=== PATIENT | female | born 1950 | race Caucasian/White ===

== ENCOUNTER 2017-11-09 08:09 | Day surgery (SDC) | payer MEDICARE, MEDICAID ==
[~2017-11-09 08:09] MED LIST: Lactated Ringers 1,000 ML IV SCH; Midazolam 1 MG/ML 2 ML SDV ONE; Propofol 200 MG/20 ML SDV ONE; Sodium Chloride 0.9% 10 ML Syringe FLUSH PRN; Sodium Chloride 0.9% 2.5 ML Syringe FLUSH PRN; fentaNYL 100 MCG/2 ML SDV ONE
--- NOTE | 2017-11-09 08:45 | PCM.PREANE ---
Preanesthetic Assessment - Anesthesia/Transfusion/Family Hx Anesthesia History: Prior Anesthesia Without Reaction Family History of Anesthesia Reaction: No Transfusion History: Prior Transfusion Without Reaction Intubation History: Unknown - Review of Systems General: No Symptoms Pulmonary: Shortness of Breath Cardiovascular: No Symptoms Gastrointestinal: Difficulty Swallowing, Hematochezia Neurological: No Symptoms Other: Reports: None - Physical Assessment Height: 1.75 m Weight: 82.1 kg ASA Class: 3 Mental Status: Alert & Oriented x3 Airway Class: Mallampati = 2 Dentition: Reports: Dentures (upper and lower) Thyro-Mental Finger Breadths: 3 Mouth Opening Finger Breadths: 3 ROM/Head Extension: Limited/Partial Lungs: Decreased Breath Sounds, Crackles Cardiovascular: Regular Rate, Regular Rhythm - Allergies Allergies/Adverse Reactions: Allergies Allergy/AdvReac Type Severity Reaction Status Date / Time ibuprofen [From Motrin] Allergy Intermediate Headache Verified 11/04/17 08:01 Sulfa (Sulfonamide Allergy Intermediate Swollen Verified 11/04/17 08:01 Antibiotics) Eyes oxycodone Allergy Confusion/h Verified 11/04/17 11:03 allucinatio ns/depressi on - Blood Blood Available: No - Anesthesia Plan Pre-Op Medication Ordered: None - Acknowledgements Anesthesia Type Planned: MAC Pt an Appropriate Candidate for the Planned Anesthesia: Yes Alternatives and Risks of Anesthesia Discussed w Pt/Guardian: Yes Pt/Guardian Understands and Agrees with Anesthesia Plan: Yes PreAnesthesia Questionnaire HEENT History: Reports: Impaired Vision Other HEENT History: reading glasses, top denture, does not wear bottom denture Cardiovascular History: Reports: CAD, High Cholesterol, Hypertension, [place], SOB on Exertion Other Cardiovascular History: peripheral arterial disease, h/o CHF per patient Respiratory History: Reports: COPD Other Respiratory History: h/o lung cancer couple of years ago Gastrointestinal History: Reports: GERD, GI Bleed, Other (See Below) (dysphagia) Genitourinary History: Reports: None 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: Musculoskeletal History: Reports: Arthritis, Back Pain, Chronic Other Musculoskeletal History: degenerative disc disease Neurological History: Reports: Concussion Psychiatric History: Reports: Addiction, Anxiety, Depression Endocrine/Metabolic History: Reports: None Hematologic History: Reports: Blood Transfusion(s) Oncologic (Cancer) History: Reports: Breast, Lung Dermatologic History: Reports: Psoriasis - Past Surgical History Head Surgeries/Procedures: Reports: None HEENT Surgical History: Reports: Cataract Surgery, Tonsillectomy Cardiovascular Surgical History: Reports: Coronary Artery Stent, Other (See Below) Other Cardiovascular Surgeries/Procedures: angiogram, femerol arterial stent placements Respiratory Surgical History: Reports: Other (See Below) Other Respiratory Surgeries/Procedures: lung lobectomy GI Surgical History: Reports: Appendectomy, Colonoscopy (2 years ago) Female Surgical History: Reports: Breast Biopsy, Hysterectomy, Tubal Ligation Other Female Surgeries/Procedures: breast lumpectomy for breast cancer Oncologic Surgical History: Reports: Biopsy of Breast, Lumpectomy - SUBSTANCE USE Smoking Status *Q: Former Smoker Tobacco Use Within Last Twelve Months: Cigarettes Second Hand Smoke Exposure: Yes Days Per Week of Alcohol Use: 0 Recreational Drug Use History: Yes Recreational Drug Type: Reports: Other (see below) - HOME MEDS Home Medications: Home Meds Aspirin [Adult Low Dose Aspirin EC] 81 mg PO DAILY 02/17/14 [History] Atenolol 50 mg PO DAILY #30 tablet 02/17/14 [Rx] Lisinopril 10 mg PO DAILY #30 tablet 02/17/14 [Rx] FLUoxetine [PROzac] 20 mg PO DAILY 08/06/16 [History] Nitroglycerin [Nitrostat] 0.4 mg SL Q5M PRN 08/06/16 [History] atorvaSTATin [Lipitor] 10 mg PO BEDTIME 08/06/16 [History] buPROPion [Wellbutrin SR] 300 mg PO DAILY 08/06/16 [History] Omeprazole 20 mg PO BID 10/11/16 [History] Albuterol [Ventolin HFA] 1 - 2 puff INH ASDIRECTED PRN 11/04/17 [History] Clopidogrel Bisulfate [Plavix] 75 mg PO DAILY 11/04/17 [History] Isosorbide Mononitrate [Imdur] 30 mg PO DAILY 11/04/17 [History] Pregabalin [Lyrica] 150 mg PO ASDIRECTED 11/04/17 [History] Sucralfate [Carafate] 1 gm PO QID 11/04/17 [History] - CURRENT (IN HOUSE) MEDS Current Meds: Current Medications Lactated Ringer's (Ringers, Lactated) 1,000 mls @ 125 mls/hr IV ASDIRECTED [place] Sodium Chloride (Saline Flush) 10 ml FLUSH ASDIRECTED PRN PRN Reason: Keep Vein Open Sodium Chloride (Saline Flush) 2.5 ml FLUSH ASDIRECTED PRN PRN Reason: Keep Vein Open Sodium Chloride (Saline Flush) 10 ml FLUSH ASDIRECTED PRN PRN Reason: Keep Vein Open Sodium Chloride (Saline Flush) 2.5 ml FLUSH ASDIRECTED PRN PRN Reason: Keep Vein Open Discontinued Medications Fentanyl (Sublimaze) Confirm Administered Dose 100 mcg .ROUTE .STK-MED ONE Stop: 11/09/17 07:35 Midazolam HCl (Versed 1 Mg/Ml) Confirm Administered Dose 2 mg .ROUTE .STK-MED ONE Stop: 11/09/17 07:35 Propofol (Diprivan 20 Ml) Confirm Administered Dose 200 mg .ROUTE .STK-MED ONE Stop: 11/09/17 07:35
[2017-11-09] MEDS ORDERED: ePHEDrine 50 MG/ML SDV ONE (08:49)
--- NOTE | 2017-11-09 09:31 | PCM.OPNOTE ---
- General Post-Op/Procedure Note Date of Surgery/Procedure: 11/09/17 Operative Procedure(s): Diagnostic EGD and colonoscopy Findings: Normal EGD. Ascending colon (proximal) and Sigmoid colon (distal) polyp Pre Op Diagnosis: GI bleed Post-Op Diagnosis: Cecal and sigmoid colon polyp Anesthesia Technique: MAC Primary Surgeon: Mairama Rudd Condition: Good
--- NOTE | 2017-11-09 10:09 | PCM48HPAN ---
Post Anesthesia Note - EVALUATION WITHIN 48HRS OF ANESTHETIC Vital Signs in Normal Range: Yes Patient Participated in Evaluation: Yes Respiratory Function Stable: Yes Airway Patent: Yes Cardiovascular Function Stable: Yes Hydration Status Stable: Yes Pain Control Satisfactory: Yes Nausea and Vomiting Control Satisfactory: Yes Mental Status Recovered: Yes Resp Rate: 12
[2017-11-09 10:11] VITALS: BP 114/61
--- NOTE | 2017-11-09 11:13 | OR ---
SURGEON: MARIAMA RUDD MD DATE OF PROCEDURE: 11/09/2017 PREOPERATIVE DIAGNOSIS: Gastrointestinal bleed. POSTOPERATIVE DIAGNOSIS: Ascending colon polyp and descending colon polyp. PROCEDURE PERFORMED: Diagnostic EGD and colonoscopy. ENDOSCOPIST: Mariama Rudd MD. ANESTHESIA: MAC. INSTRUMENT USED: Olympus endoscope and colonoscope. EXTENT OF EXAM: Second portion of the duodenum, to the cecum. PREPARATION: Good. LIMITATIONS: None. INDICATION FOR EXAMINATION: The patient is a 66-year-old female with multiple medical comorbidities. She was admitted a couple months ago to an outside hospital for GI bleed. She is here for further workup. The patient had a colonoscopy several years ago that was normal. The decision was made to proceed with a diagnostic EGD and colonoscopy. We discussed the procedures, expected perioperative course, and risks including bleeding, infection, or damage to surrounding structures. The patient underwent an extensive preoperative workup prior to this procedure. The patient verbalized understanding and wishes to proceed. PROCEDURE IN DETAIL: The patient was brought into the endoscopy suite and placed in a left lateral decubitus position. A time-out was completed verifying the patient's name, age, date of , allergies, and procedure to be performed. A bite block was placed in the patient's mouth, and monitored anesthesia care induced. Continuous oxygen was provided via nasal cannula throughout the procedure. After adequate sedation was achieved, a well-lubricated endoscope was placed in the patient's mouth and advanced under direct visualization to the level of the second portion of duodenum. This appeared normal, and a photograph was taken. The scope was then fully withdrawn while examining the color, texture, anatomy, and integrity of the mucosa of the upper GI tract. There was no evidence of any duodenitis or peptic ulcer disease. The scope was brought into the stomach, and a photograph taken of the GE junction and pylorus, which both appeared normal. The gastric mucosa had no signs of inflammation. The biopsies were taken of the gastric antrum, body, and fundus and sent for histologic review and H. pylori testing. The scope was brought into the distal esophagus. A photograph was taken of the Z-line. This appeared normal. The remainder of the esophageal mucosa was free of pathology. The scope was removed from the mouth, and this portion of the procedure was terminated. A digital rectal exam was performed. The patient had overall weak rectal tone, but no abnormalities were otherwise noted. A well-lubricated colonoscope was inserted into the rectum and advanced under direct visualization to the level of the cecum. The cecum was then identified by both visual and anatomic landmarks. A photograph taken of the cecal cap. Due to looping of the scope more proximally, I was unable to retroflex the scope within the cecum. The scope was then fully withdrawn. While examining, the color, texture, anatomy, and integrity of the mucosa from the cecum to the anal canal. At the very proximal ascending colon, a 2 to 3 mm sessile polyp was noted. This was removed using a cold biopsy forceps. The patient also had a similar-appearing polyp in the distal sigmoid colon. This was removed in a similar fashion. The remainder of the colon appeared normal. The scope was brought into the rectum. I attempted to retroflex the scope, but was unable to do so due to the weak tone of the rectum in her small pelvis. I fully withdrew my scope, taking a good look at the tissue inside the rectum. No abnormalities were noted. The scope was then removed, and the procedure terminated. The cecum to anus time was 10 minutes. The patient tolerated the procedure well, and was taken to the PACU in stable condition. ENDOSCOPIC DIAGNOSIS: Ascending colon polyp and descending colon polyp. RECOMMENDATIONS: Follow up in the clinic in 2 weeks. JUDY VAZQUEZ /[id number]
== END 2017-11-09 10:00 | disposition home or self-care (01) ==
LOC: MW.SDS 08:09
PROVIDERS: ATTEND Surgery
DX: K92.2 Gastrointestinal hemorrhage, unspecified (principal); D12.2 Benign neoplasm of ascending colon; D12.5 Benign neoplasm of sigmoid colon; K92.1 Melena; Z88.6 Allergy status to analgesic agent; Z88.2 Allergy status to sulfonamides; K21.9 Gastro-esophageal reflux disease without esophagitis; I25.10 Atherosclerotic heart disease of native coronary artery without angina pectoris; E78.00 Pure hypercholesterolemia, unspecified; I25.2 Old myocardial infarction; J44.9 Chronic obstructive pulmonary disease, unspecified; I11.0 Hypertensive heart disease with heart failure; I50.9 Heart failure, unspecified; F41.9 Anxiety disorder, unspecified; F32.9 Major depressive disorder, single episode, unspecified; Z87.891 Personal history of nicotine dependence; Z79.82 Long term (current) use of aspirin; Z79.899 Other long term (current) drug therapy
CPT/HCPCS: 43239; 45380; J2250; J3010; J7120; J2704

== ENCOUNTER 2018-02-01 17:01 | Observation (INO) | payer MEDICARE, MEDICAID ==
[2018-02-01] MEDS ORDERED: Sodium Chloride 0.9% 2.5 ML Syringe FLUSH PRN (17:12)
[2018-02-01] MEDS ORDERED: Sodium Chloride 0.9% 1,000 ML IV ONE (17:12)
[2018-02-01] MEDS ORDERED: Sodium Chloride 0.9% 10 ML Syringe FLUSH PRN (17:12)
--- NOTE | 2018-02-01 17:21 | EDM.PDOC ---
ED HPI GENERAL MEDICAL PROBLEM - General Chief Complaint: General Stated Complaint: CHEST PAIN Time Seen by Provider: 02/01/18 17:20 Source of Information: Reports: Patient History Limitations: Reports: No Limitations - History of Present Illness INITIAL COMMENTS - FREE TEXT/NARRATIVE: HISTORY AND PHYSICAL: History of present illness: Patient is a 67-year-old female here with complaint of lightheadedness and chest pain. She states the chest pain started about noon today. She reports it is midsternal and radiates to the left side. She has a history of ACS with stents. She reports feeling a little short of breath. She is not diaphoretic and no nausea, vomiting, diarrhea, abdominal pain. Patient states she did not take her nitro today as she is out of it. She also reports feeling lightheaded since this morning. She states her balance feels off and she feels like she is walking crooked. Review of systems: As per history of present illness and below otherwise all systems reviewed and negative. Past medical history: As per history of present illness and as reviewed below otherwise noncontributory. Surgical history: As per history of present illness and as reviewed below otherwise noncontributory. Social history: No reported history of drug or alcohol abuse. Family history: As per history of present illness and as reviewed below otherwise noncontributory. Physical exam: General: patient lying comfortably in no acute distress HEENT: Atraumatic, normocephalic, pupils reactive, negative for conjunctival pallor or scleral icterus, mucous membranes moist, throat clear, neck supple, nontender, trachea midline. Lungs: Breath sounds dimished, breath sounds equal bilaterally, chest nontender. Heart: S1S2, regular, negative for clicks, rubs, or JVD. Abdomen: Soft, nondistended, nontender. Negative for masses or hepatosplenomegaly. Negative for costovertebral tenderness. Pelvis: Stable nontender. Genitourinary: Deferred. Rectal: Deferred. Extremities: Atraumatic, negative for cords or calf pain. Neurovascular unremarkable. Neuro: Awake, alert, oriented. Cranial nerves II through XII unremarkable. Cerebellum unremarkable. Motor and sensory unremarkable throughout. Exam nonfocal. Notes: Patient reports improvement in SOB with DuoNeb, breath sounds improved. Diagnostics: CBC, CMP, troponin, lipase, UA EKG, CXR Therapeutics: Aspirin 324mg chewed 1L Normal saline IV DuoNeb Impression: Chest pain Plan: Discussed with Dr. Ramos, patient admitted to observation on telemetry and serial troponin. Definitive disposition and diagnosis as appropriate pending reevaluation and review of above. bilateral hips Pain Score (Numeric/FACES): 8 - Related Data Allergies Allergy/AdvReac Type Severity Reaction Status Date / Time ibuprofen [From Motrin] Allergy Intermediate Headache Verified 02/01/18 17:17 Sulfa (Sulfonamide Allergy Intermediate Swollen Verified 02/01/18 17:17 Antibiotics) Eyes oxycodone Allergy Confusion/h Verified 02/01/18 17:17 allucinatio ns/depressi on Home Meds: Home Meds Aspirin [Adult Low Dose Aspirin EC] 81 mg PO DAILY 02/17/14 [History] Atenolol 50 mg PO DAILY #30 tablet 02/17/14 [Rx] Lisinopril 10 mg PO DAILY #30 tablet 02/17/14 [Rx] FLUoxetine [PROzac] 20 mg PO DAILY 08/06/16 [History] Nitroglycerin [Nitrostat] 0.4 mg SL Q5M PRN 08/06/16 [History] atorvaSTATin [Lipitor] 10 mg PO BEDTIME 08/06/16 [History] buPROPion [Wellbutrin SR] 300 mg PO DAILY 08/06/16 [History] Omeprazole 20 mg PO BID 10/11/16 [History] Albuterol [Ventolin HFA] 1 - 2 puff INH ASDIRECTED PRN 11/04/17 [History] Clopidogrel Bisulfate [Plavix] 75 mg PO DAILY 11/04/17 [History] Isosorbide Mononitrate [Imdur] 30 mg PO DAILY 11/04/17 [History] Pregabalin [Lyrica] 150 mg PO ASDIRECTED 11/04/17 [History] Past Medical History HEENT History: Reports: Impaired Vision Other HEENT History: wears glasses Cardiovascular History: Reports: CAD, High Cholesterol, Hypertension, [place], SOB on Exertion Other Cardiovascular History: peripheral arterial disease, h/o CHF per patient Respiratory History: Reports: None Other Respiratory History: h/o lung cancer couple of years ago Gastrointestinal History: Reports: GERD, GI Bleed, Other (See Below) Genitourinary History: Reports: None 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: , Other (See Below) Other BRICK BAKER History: breast surgery Musculoskeletal History: Reports: Arthritis, Back Pain, Chronic Other Musculoskeletal History: degenerative disc disease Neurological History: Reports: Concussion Psychiatric History: Reports: Depression Endocrine/Metabolic History: Reports: None Hematologic History: Reports: Blood Transfusion(s) Oncologic (Cancer) History: Reports: Breast, Lung Dermatologic History: Reports: Psoriasis - Infectious Disease History Infectious Disease History: Reports: Chicken Pox - Past Surgical History Head Surgeries/Procedures: Reports: None Cardiovascular Surgical History: Reports: Coronary Artery Stent, Other (See Below) Other Cardiovascular Surgeries/Procedures: angiogram, femerol arterial stent placements Respiratory Surgical History: Reports: Lung Biopsies Other Respiratory Surgeries/Procedures: states hx of Lung CA GI Surgical History: Reports: Appendectomy, Colonoscopy Female Surgical History: Reports: Breast Biopsy, Hysterectomy, Tubal Ligation Other Female Surgeries/Procedures: breast lumpectomy for breast cancer Oncologic Surgical History: Reports: Biopsy of Breast, Lumpectomy Social & Family History - Family History Family Medical History: Noncontributory - Tobacco Use Smoking Status *Q: Current Every Day Smoker Years of Tobacco use: 45 Packs/Tins Daily: 1 - Caffeine Use Caffeine Use: Reports: Coffee Caffeine Use Comment: 2 drinks/day - Recreational Drug Use Recreational Drug Use: No ED ROS GENERAL - Review of Systems Review Of Systems: ROS reveals no pertinent complaints other than HPI. ED EXAM, GENERAL - Physical Exam Exam: See Below (see dictation) Course - Vital Signs Last Recorded V/S: Last Vital Signs Temp 35.4 C 02/01/18 17:13 Pulse 69 02/01/18 17:13 Resp 18 02/01/18 17:13 BP 101/57 L 02/01/18 17:13 Pulse Ox 93 L 02/01/18 17:13 - Orders/Labs/Meds Orders: Active Orders 24 hr Category Date Time Status EKG Documentation Completion [RC] STAT Care 02/01/18 17:12 Active Pulse Oximetry [RC] ASDIRECTED Care 02/01/18 17:12 Active RT Aerosol Therapy [RC] ASDIRECTED Care 02/01/18 17:40 Active Chest 1V Frontal [CR] Stat Exams 02/01/18 17:12 Taken UA W/MICROSCOPIC [URIN] Stat Lab 02/01/18 17:12 Ordered Sodium Chloride 0.9% [Saline Flush] Med 08/14/18 17:12 Active 10 ml FLUSH ASDIRECTED PRN Sodium Chloride 0.9% [Saline Flush] Med 02/01/18 17:12 Active 2.5 ml FLUSH ASDIRECTED PRN Saline Lock Insert [OM.PC] Stat Oth 02/01/18 17:12 Ordered Medication Orders Sodium Chloride (Saline Flush) 10 ml FLUSH ASDIRECTED PRN PRN Reason: Keep Vein Open Last Admin: 02/01/18 17:40 Dose: 10 ml Sodium Chloride (Saline Flush) 2.5 ml FLUSH ASDIRECTED PRN PRN Reason: Keep Vein Open Last Admin: 02/01/18 17:40 Dose: 2.5 ml Labs: Laboratory Tests 02/01/18 02/01/18 02/01/18 Range/Units 17:19 17:19 17:19 WBC 7.46 (4.0-11.0) K/uL RBC 5.31 (4.30-5.90) M/uL Hgb 13.4 (12.0-16.0) g/dL Hct 41.4 (36.0-46.0) % MCV 78.0 L (80.0-98.0) fL MCH 25.2 L (27.0-32.0) pg MCHC 32.4 (31.0-37.0) g/dL RDW Std Deviation 49.8 (28.0-62.0) fl RDW Coeff of Oscar 18 H (11.0-15.0) % Plt Count 296 (150-400) K/uL MPV 9.60 (7.40-12.00) fL Neut % (Auto) 61.3 (48.0-80.0) % Lymph % (Auto) 27.6 (16.0-40.0) % [place] % (Auto) 7.4 (0.0-15.0) % Eos % (Auto) 3.4 (0.0-7.0) % Baso % (Auto) 0.3 (0.0-1.5) % Neut # (Auto) 4.6 (1.4-5.7) K/uL Lymph # (Auto) 2.1 (0.6-2.4) K/uL [place] # (Auto) 0.6 (0.0-0.8) K/uL Eos # (Auto) 0.3 (0.0-0.7) K/uL Baso # (Auto) 0.0 (0.0-0.1) K/uL Nucleated RBC % 0.0 /100WBC Nucleated RBCs # 0 K/uL INR 1.00 Sodium 138 (136-145) mmol/L Potassium 3.9 (3.5-5.1) mmol/L Chloride 101 (98-107) mmol/L Carbon Dioxide 28.9 (21.0-32.0) mmol/L BUN 11 (7.0-18.0) mg/dL Creatinine 1.2 H (0.6-1.0) mg/dL Est Cr Clr Drug Dosing 46.24 mL/min Estimated GFR (MDRD) 44.5 ml/min Glucose 157 H (74-106) mg/dL Calcium 9.2 (8.5-10.1) mg/dL Total Bilirubin 0.2 (0.2-1.0) mg/dL AST 19 (15-37) IU/L ALT 17 (14-63) IU/L Alkaline Phosphatase 117 H (46-116) U/L Troponin I < 0.050 (0.000-0.056) ng/mL Total Protein 7.8 (6.4-8.2) g/dL Albumin 3.5 (3.4-5.0) g/dL Globulin 4.3 H (2.0-3.5) g/dL Albumin/Globulin Ratio 0.8 L (1.3-2.8) Lipase 79 (73-393) U/L Meds: Medications Generic Name Dose Route Start Last Admin Trade Name Freq PRN Reason Stop Dose Admin Sodium Chloride 10 ml 02/01/18 17:12 02/01/18 17:40 Saline Flush FLUSH 10 ml ASDIRECTED PRN Administration Keep Vein Open Sodium Chloride 2.5 ml 02/01/18 17:12 02/01/18 17:40 Saline Flush FLUSH 2.5 ml ASDIRECTED PRN Administration Keep Vein Open Discontinued Medications Generic Name Dose Route Start Last Admin Trade Name Freq PRN Reason Stop Dose Admin Albuterol/Ipratropium 3 ml 02/01/18 17:40 02/01/18 17:47 Duoneb 3.0-0.5 Mg/3 Ml NEB 02/01/18 17:41 3 ml ONETIME ONE Administration Aspirin 324 mg 02/01/18 18:13 Aspirin PO 02/01/18 18:14 ONETIME ONE Sodium Chloride 1,000 mls @ 999 mls/hr 02/01/18 17:12 02/01/18 17:29 Normal Saline IV 02/01/18 18:12 999 mls/hr BOLUS ONE Administration Departure - Departure Time of Disposition: 18:33 Disposition: Refer to Observation Condition: Good Clinical Impression: Chest pain - Discharge Information Referrals: PCP,None [Primary Care Provider] - Forms: ED Department Discharge - My Orders Last 24 Hours: My Active Orders 02/01/18 17:12 EKG Documentation Completion [RC] STAT Pulse Oximetry [RC] ASDIRECTED Chest 1V Frontal [CR] Stat UA W/MICROSCOPIC [URIN] Stat Sodium Chloride 0.9% [Saline Flush] 10 ml FLUSH ASDIRECTED PRN Sodium Chloride 0.9% [Saline Flush] 2.5 ml FLUSH ASDIRECTED PRN Saline Lock Insert [OM.PC] Stat 02/01/18 17:40 RT Aerosol Therapy [RC] ASDIRECTED - Assessment/Plan Last 24 Hours: My Active Orders 02/01/18 17:12 EKG Documentation Completion [RC] STAT Pulse Oximetry [RC] ASDIRECTED Chest 1V Frontal [CR] Stat UA W/MICROSCOPIC [URIN] Stat Sodium Chloride 0.9% [Saline Flush] 10 ml FLUSH ASDIRECTED PRN Sodium Chloride 0.9% [Saline Flush] 2.5 ml FLUSH ASDIRECTED PRN Saline Lock Insert [OM.PC] Stat 02/01/18 17:40 RT Aerosol Therapy [RC] ASDIRECTED
[2018-02-01] MEDS ORDERED: Albuterol/Ipratropium 3.0-0.5 MG/3 ML Neb Soln NEB ONE (17:40)
[2018-02-01 17:51] LABS: CHLORIDE,CL 101 mmol/L (98-107); SODIUM,NA 138 mmol/L (136-145)
[2018-02-01] MEDS ORDERED: Aspirin 81 MG Tab.Chew PO ONE (18:13)
[2018-02-01] MEDS ORDERED: Ondansetron 4 MG/2 ML SDV IVPUSH PRN (21:16)
[2018-02-01] MEDS ORDERED: Acetaminophen 325 MG Tab PO PRN (21:16)
[2018-02-01] MEDS ORDERED: Morphine 2 MG/ML Syringe IVPUSH PRN (21:23)
--- NOTE | 2018-02-01 23:47 | PCM.HP ---
H&P History of Present Illness - General Date of Service: 02/01/18 Admit Problem/Dx: Admission Diagnosis/Problem Admission Diagnosis/Problem Chest pain - History of Present Illness Initial Comments - Free Text/Narative: 67 yo female with pmh of CAD who presents with complaints of chest pain. It was substernal and nonradiating. She had associated symptoms of weakness and shakes. She reported feeling anxious and wonders if it was her nerves that caused the symptoms. bilateral hips Pain Score (Numeric/FACES): 7 - Related Data Allergies/Adverse Reactions: Allergies Allergy/AdvReac Type Severity Reaction Status Date / Time ibuprofen [From Motrin] Allergy Intermediate Headache Verified 02/01/18 17:17 Sulfa (Sulfonamide Allergy Intermediate Swollen Verified 02/01/18 17:17 Antibiotics) Eyes oxycodone Allergy Confusion/h Verified 02/01/18 17:17 allucinatio ns/depressi on Home Medications: Home Meds RX: Aspirin [Adult Low Dose Aspirin EC] 81 mg PO DAILY 02/17/14 [History] RX: Atenolol 50 mg PO DAILY #30 tablet 02/17/14 [Rx] RX: Lisinopril 10 mg PO DAILY #30 tablet 02/17/14 [Rx] RX: FLUoxetine [PROzac] 20 mg PO DAILY 08/06/16 [History] RX: Nitroglycerin [Nitrostat] 0.4 mg SL Q5M PRN 08/06/16 [History] RX: atorvaSTATin [Lipitor] 10 mg PO DAILY 08/06/16 [History] RX: buPROPion [Wellbutrin SR] 300 mg PO DAILY 08/06/16 [History] RX: Omeprazole 20 mg PO BID 10/11/16 [History] RX: Albuterol [Ventolin HFA] 1 - 2 puff INH ASDIRECTED PRN 11/04/17 [History] RX: Clopidogrel Bisulfate [Plavix] 75 mg PO DAILY 11/04/17 [History] RX: Isosorbide Mononitrate [Imdur] 30 mg PO DAILY 11/04/17 [History] RX: Pregabalin [Lyrica] 150 mg PO DAILY 11/04/17 [History] RX: Sucralfate 1 gm PO QID PRN 02/02/18 [History] Past Medical History HEENT History: Reports: Impaired Vision Other HEENT History: wears glasses, wears upper and lower dentures, lower denture not with her Cardiovascular History: Reports: CAD, High Cholesterol, Hypertension, [place], SOB on Exertion, Stents Other Cardiovascular History: peripheral arterial disease Respiratory History: Reports: COPD Other Respiratory History: h/o lung cancer couple of years ago Gastrointestinal History: Reports: Colon Polyp, GERD, GI Bleed, Other (See Below ) Genitourinary History: Reports: UTI, Recurrent PEER SPECIALIST History: Reports: , Other (See Below) Other OB/BYN History: breast surgery Musculoskeletal History: Reports: Arthritis, Back Pain, Chronic Other Musculoskeletal History: degenerative disc disease Neurological History: Reports: Concussion Psychiatric History: Reports: Addiction, Anxiety, Bipolar, Depression Endocrine/Metabolic History: Reports: Osteoporosis Hematologic History: Reports: Blood Transfusion(s) Oncologic (Cancer) History: Reports: Breast, Lung Dermatologic History: Reports: Eczema, Psoriasis - Infectious Disease History Infectious Disease History: Reports: Chicken Pox, Measles, Mumps - Past Surgical History Head Surgeries/Procedures: Reports: None HEENT Surgical History: Reports: Cataract Surgery, Tonsillectomy Cardiovascular Surgical History: Reports: Coronary Artery Stent, Other (See Below) Other Cardiovascular Surgeries/Procedures: angiogram, femoral arterial stent placements Respiratory Surgical History: Reports: Lung Biopsies Other Respiratory Surgeries/Procedures: right upper lobe 2016 GI Surgical History: Reports: Appendectomy, Colonoscopy, Polypectomy Female Surgical History: Reports: Breast Biopsy, Hysterectomy, Tubal Ligation Other Female Surgeries/Procedures: left breast lumpectomy for breast cancer ( radiation 2006) Oncologic Surgical History: Reports: Biopsy of Breast, Lumpectomy Social & Family History - Family History Family Medical History: Noncontributory - Tobacco Use Smoking Status *Q: Current Every Day Smoker Years of Tobacco use: 55 Packs/Tins Daily: 1 Used Tobacco, but Quit: No Second Hand Smoke Exposure: No - Caffeine Use Caffeine Use: Reports: Coffee, Soda Caffeine Use Comment: 2 drinks/day - Recreational Drug Use Recreational Drug Use: No H&P Review of Systems - Review of Systems: Review Of Systems: ROS reveals no pertinent complaints other than HPI. Exam - Exam Exam: See Below - Vital Signs Vital Signs: Last Vital Signs Temp 35.9 C 02/01/18 20:15 Pulse 50 L 02/01/18 20:15 Resp 19 02/01/18 20:15 BP 148/67 H 02/01/18 20:15 Pulse Ox 95 02/01/18 20:15 Weight: 84.368 kg - Exam General: Alert, Oriented HEENT: Mucosa Moist & [place] Lungs: Clear to Auscultation, Normal Respiratory Effort Cardiovascular: Regular Rate, Regular Rhythm GI/Abdominal Exam: Normal Bowel Sounds, Soft, Non-Tender Extremities: Normal Range of Motion, Non-Tender Skin: Warm, Dry, Intact Neurological: Cranial Nerves Intact. No: Focal Deficit - Patient Data Lab Results Last 24 hrs: Laboratory Results - last 24 hr 02/01/18 02/01/18 02/01/18 Range/Units 17:19 17:19 17:19 WBC 7.46 (4.0-11.0) K/uL RBC 5.31 (4.30-5.90) M/uL Hgb 13.4 (12.0-16.0) g/dL Hct 41.4 (36.0-46.0) % MCV 78.0 L (80.0-98.0) fL MCH 25.2 L (27.0-32.0) pg MCHC 32.4 (31.0-37.0) g/dL RDW Std Deviation 49.8 (28.0-62.0) fl RDW Coeff of Oscar 18 H (11.0-15.0) % Plt Count 296 (150-400) K/uL MPV 9.60 (7.40-12.00) fL Neut % (Auto) 61.3 (48.0-80.0) % Lymph % (Auto) 27.6 (16.0-40.0) % Wolfe % (Auto) 7.4 (0.0-15.0) % Eos % (Auto) 3.4 (0.0-7.0) % Baso % (Auto) 0.3 (0.0-1.5) % Neut # (Auto) 4.6 (1.4-5.7) K/uL Lymph # (Auto) 2.1 (0.6-2.4) K/uL Wolfe # (Auto) 0.6 (0.0-0.8) K/uL Eos # (Auto) 0.3 (0.0-0.7) K/uL Baso # (Auto) 0.0 (0.0-0.1) K/uL Nucleated RBC % 0.0 /100WBC Nucleated RBCs # 0 K/uL INR 1.00 Sodium 138 (136-145) mmol/L Potassium 3.9 (3.5-5.1) mmol/L Chloride 101 (98-107) mmol/L Carbon Dioxide 28.9 (21.0-32.0) mmol/L BUN 11 (7.0-18.0) mg/dL Creatinine 1.2 H (0.6-1.0) mg/dL Est Cr Clr Drug Dosing 46.24 mL/min Estimated GFR (MDRD) 44.5 ml/min Glucose 157 H (74-106) mg/dL Calcium 9.2 (8.5-10.1) mg/dL Total Bilirubin 0.2 (0.2-1.0) mg/dL AST 19 (15-37) IU/L ALT 17 (14-63) IU/L Alkaline Phosphatase 117 H (46-116) U/L Troponin I < 0.050 (0.000-0.056) ng/mL Total Protein 7.8 (6.4-8.2) g/dL Albumin 3.5 (3.4-5.0) g/dL Globulin 4.3 H (2.0-3.5) g/dL Albumin/Globulin Ratio 0.8 L (1.3-2.8) Lipase 79 (73-393) U/L Urine Color Urine Appearance Urine pH (5.0-8.0) Ur Specific Eaton (1.001-1.035) Urine Protein (NEGATIVE) mg/dL Urine Glucose (UA) (NEGATIVE) mg/dL Urine Ketones (NEGATIVE) mg/dL Urine Occult Blood (NEGATIVE) Urine Nitrite (NEGATIVE) Urine Bilirubin (NEGATIVE) Urine Urobilinogen (<2.0) EU/dL Ur Leukocyte Esterase (NEGATIVE) Urine RBC (0-2/HPF) Urine WBC (0-5/HPF) Ur Epithelial Cells (NONE-FEW) Urine Bacteria (NEGATIVE) 02/01/18 02/01/18 Range/Units 19:20 22:37 WBC (4.0-11.0) K/uL RBC (4.30-5.90) M/uL Hgb (12.0-16.0) g/dL Hct (36.0-46.0) % MCV (80.0-98.0) fL MCH (27.0-32.0) pg MCHC (31.0-37.0) g/dL RDW Std Deviation (28.0-62.0) fl RDW Coeff of Oscar (11.0-15.0) % Plt Count (150-400) K/uL MPV (7.40-12.00) fL Neut % (Auto) (48.0-80.0) % Lymph % (Auto) (16.0-40.0) % Wolfe % (Auto) (0.0-15.0) % Eos % (Auto) (0.0-7.0) % Baso % (Auto) (0.0-1.5) % Neut # (Auto) (1.4-5.7) K/uL Lymph # (Auto) (0.6-2.4) K/uL Wolfe # (Auto) (0.0-0.8) K/uL Eos # (Auto) (0.0-0.7) K/uL Baso # (Auto) (0.0-0.1) K/uL Nucleated RBC % /100WBC Nucleated RBCs # K/uL INR Sodium (136-145) mmol/L Potassium (3.5-5.1) mmol/L Chloride (98-107) mmol/L Carbon Dioxide (21.0-32.0) mmol/L BUN (7.0-18.0) mg/dL Creatinine (0.6-1.0) mg/dL Est Cr Clr Drug Dosing mL/min Estimated GFR (MDRD) ml/min Glucose (74-106) mg/dL Calcium (8.5-10.1) mg/dL Total Bilirubin (0.2-1.0) mg/dL AST (15-37) IU/L ALT (14-63) IU/L Alkaline Phosphatase (46-116) U/L Troponin I < 0.050 (0.000-0.056) ng/mL Total Protein (6.4-8.2) g/dL Albumin (3.4-5.0) g/dL Globulin (2.0-3.5) g/dL Albumin/Globulin Ratio (1.3-2.8) Lipase (73-393) U/L Urine Color YELLOW Urine Appearance CLEAR Urine pH 7.0 (5.0-8.0) Ur Specific Eaton <= 1.005 (1.001-1.035) Urine Protein NEGATIVE (NEGATIVE) mg/dL Urine Glucose (UA) NEGATIVE (NEGATIVE) mg/dL Urine Ketones NEGATIVE (NEGATIVE) mg/dL Urine Occult Blood NEGATIVE (NEGATIVE) Urine Nitrite NEGATIVE (NEGATIVE) Urine Bilirubin NEGATIVE (NEGATIVE) Urine Urobilinogen 0.2 (<2.0) EU/dL Ur Leukocyte Esterase TRACE (NEGATIVE) Urine RBC 0-1 (0-2/HPF) Urine WBC 0-1 (0-5/HPF) Ur Epithelial Cells OCCASIONAL (NONE-FEW) Urine Bacteria RARE (NEGATIVE) Result Diagrams: 02/02/18 05:20 02/01/18 17:19 Problem List Initiated/Reviewed/Updated: Yes Orders Last 24hrs: Active Orders 24 hr Category Date Time Status Admission Status [Patient Status] [ADT] Stat ADT 02/01/18 18:34 Active EKG Documentation Completion [RC] STAT Care 02/01/18 17:12 Active Oxygen Therapy [RC] PRN Care 02/01/18 23:44 Ordered Pulse Oximetry [RC] ASDIRECTED Care 02/01/18 17:12 Active RT Aerosol Therapy [RC] ASDIRECTED Care 02/01/18 17:40 Active Telemetry Monitoring [Cardiac Monitoring] [RC] Q8H Care 02/01/18 19:46 Active VTE/DVT Education [RC] PER UNIT ROUTINE Care 02/01/18 23:44 Ordered Vital Signs [RC] Q4H Care 02/01/18 23:44 Ordered Heart Healthy Diet [DIET] Diet 02/02/18 Breakfast Active Chest 1V Frontal [CR] Stat Exams 02/01/18 17:12 Taken TROPONIN I [CHEM] Q6H Lab 02/02/18 05:00 Ordered UA W/MICROSCOPIC [URIN] Stat Lab 02/01/18 19:20 Ordered Acetaminophen [Tylenol] Med 02/01/18 21:16 Active 650 mg PO Q4H PRN Aspirin [Halfprin] Med 02/02/18 09:00 Ordered 81 mg PO DAILY Atenolol [Tenormin] Med 02/02/18 09:00 Ordered 50 mg PO DAILY Clopidogrel [Plavix] Med 02/02/18 09:00 Ordered 75 mg PO DAILY FLUoxetine [PROzac] Med 02/02/18 09:00 Ordered 20 mg PO DAILY Isosorbide Mononitrate [Imdur] Med 02/02/18 09:00 Ordered 30 mg PO DAILY Lisinopril [Prinivil] Med 02/02/18 09:00 Ordered 10 mg PO DAILY Morphine Med 02/01/18 21:23 Active 2 mg IVPUSH Q2H PRN Omeprazole Med 02/02/18 09:00 Ordered 20 mg PO BID Ondansetron [Zofran] Med 02/01/18 21:16 Active 4 mg IVPUSH Q6H PRN Pregabalin Med 02/01/18 23:45 Ordered 150 mg PO ASDIRECTED Sodium Chloride 0.9% [Saline Flush] Med 02/01/18 17:12 Active 10 ml FLUSH ASDIRECTED PRN Sodium Chloride 0.9% [Saline Flush] Med 02/01/18 17:12 Active 2.5 ml FLUSH ASDIRECTED PRN atorvaSTATin [Lipitor] Med 02/02/18 21:00 Ordered 10 mg PO BEDTIME buPROPion [Wellbutrin SR] Med 02/02/18 09:00 Ordered 300 mg PO DAILY Saline Lock Insert [OM.PC] Stat Oth 02/01/18 17:12 Ordered Sequential Compression Device [OM.PC] Per Unit Routine Oth 02/01/18 23:44 Ordered Resuscitation Status Routine Resus Stat 02/01/18 23:44 Ordered Medication Orders Acetaminophen (Tylenol) 650 mg PO Q4H PRN PRN Reason: Pain Aspirin (Halfprin) 81 mg PO DAILY ST[facility] Atenolol (Tenormin) 50 mg PO DAILY [facility] Atorvastatin Calcium (Lipitor) 10 mg PO BEDTIME ST[facility]LEY Bupropion HCl (Wellbutrin Sr) 300 mg PO DAILY [facility] Clopidogrel Bisulfate (Plavix) 75 mg PO DAILY [facility] Fluoxetine HCl (Prozac) 20 mg PO DAILY [place] Isosorbide Mononitrate (Imdur) 30 mg PO DAILY [place] Lisinopril (Prinivil) 10 mg PO DAILY [place] Morphine Sulfate (Morphine) 2 mg IVPUSH Q2H PRN PRN Reason: Pain Non-Formulary Medication (Pregabalin) 150 mg PO ASDIRECTED [place] Omeprazole (Omeprazole) 20 mg PO BID [facility] Ondansetron HCl (Zofran) 4 mg IVPUSH Q6H PRN PRN Reason: Nausea/Vomiting Sodium Chloride (Saline Flush) 10 ml FLUSH ASDIRECTED PRN PRN Reason: Keep Vein Open Last Admin: 02/01/18 17:40 Dose: 10 ml Sodium Chloride (Saline Flush) 2.5 ml FLUSH ASDIRECTED PRN PRN Reason: Keep Vein Open Last Admin: 02/01/18 17:40 Dose: 2.5 ml Assessment/Plan Comment:: 67 yo female who presented with chest pain. She ruled out for acute coronary syndrome with serial negative cardiac enzymes and EKG. She was discharge home to have follow up with Dr. Trevizo.
[2018-02-02] MEDS: Pregabalin 75 MG Cap PO SCH ×2 (07:43→08:54)
[2018-02-02 07:55] VITALS: BP 154/70
[2018-02-02] MEDS ORDERED: FLUoxetine 20 MG Cap PO SCH (09:00)
[2018-02-02] MEDS ORDERED: buPROPion 150 MG Tab.SR PO SCH (09:00)
[2018-02-02] MEDS ORDERED: Atenolol 50 MG Tab PO SCH (09:00)
[2018-02-02] MEDS ORDERED: Clopidogrel 75 MG Tab PO SCH (09:00)
[2018-02-02] MEDS ORDERED: Isosorbide Mononitrate 30 MG Tab.ER PO SCH (09:00)
[2018-02-02] MEDS ORDERED: Omeprazole 20 MG Cap.CR PO SCH (09:00)
[2018-02-02] MEDS ORDERED: Lisinopril 10 MG Tab PO SCH (09:00)
[2018-02-02] MEDS ORDERED: Aspirin 81 MG Tab.EC PO SCH (09:00)
--- NOTE | 2018-02-02 09:10 | CR ---
EXAM DATE: 02/01/18 PATIENT'S AGE: 67 Patient: DARLINE VERA Facility: [place], [place] Site . Site : [id number] Study: XRay Chest [id number] 5:42:36 PM Ordering Physician: Doctor Bee Final Report: INDICATION: Chest pain TECHNIQUE: Chest 2 views COMPARISON: 11/09/2016. FINDINGS: Cardiovascular and mediastinum: Heart size and vasculature are normal in caliber and appearance. Lungs and pleural spaces: Lungs are clear. No sign of infiltrate or mass. No sign of pleural effusion. No pneumothorax. Bones and soft tissues: No significant findings. IMPRESSION: Unremarkable chest. No finding to explain chest pain. Dictated by Da Garcia MD @ Feb 01 2018 6:12PM (Electronic Signature) Report Signed by Proxy. BENNY
[2018-02-02] MEDS ORDERED: atorvaSTATin 10 MG Tab PO SCH (21:00)
== END 2018-02-02 10:55 | disposition home or self-care (01) ==
LOC: MW.ED 17:01 → MW.MS 18:34
PROVIDERS: ADMIT Internal Medicine; ATTEND Internal Medicine
DX: R07.2 Precordial pain (principal); I11.0 Hypertensive heart disease with heart failure; I50.9 Heart failure, unspecified; J44.9 Chronic obstructive pulmonary disease, unspecified; F17.210 Nicotine dependence, cigarettes, uncomplicated; E78.00 Pure hypercholesterolemia, unspecified; I25.10 Atherosclerotic heart disease of native coronary artery without angina pectoris; I25.2 Old myocardial infarction; K21.9 Gastro-esophageal reflux disease without esophagitis; F41.9 Anxiety disorder, unspecified; F32.9 Major depressive disorder, single episode, unspecified; Z79.82 Long term (current) use of aspirin; Z79.899 Other long term (current) drug therapy; Z95.5 Presence of coronary angioplasty implant and graft; Z88.6 Allergy status to analgesic agent; Z88.5 Allergy status to narcotic agent; Z88.2 Allergy status to sulfonamides
CPT/HCPCS: 36415; 71045; 80053; 81001; 83690; 84484; 85025; 85610; 93005; 94640; 96361; 96374; 99285; A9270; G0378; J2270; J7040; 96360; 99283; J7620-GY

== ENCOUNTER 2018-09-04 21:24 | Emergency (ER) | payer MEDICAID, MEDICARE ==
--- NOTE | 2018-09-04 21:38 | EDM.PDOC ---
ED HPI GENERAL MEDICAL PROBLEM - General Chief Complaint: Chest Pain Stated Complaint: CHEST PAIN Time Seen by Provider: 09/04/18 21:33 - History of Present Illness INITIAL COMMENTS - FREE TEXT/NARRATIVE: HISTORY AND PHYSICAL: History of present illness: Patient 67-year-old female with extensive cardiac history presents with concern of chest pain this is been intermittent lasting several seconds and is described as sharp is no associated nausea vomiting diaphoresis palpitations. Patient without pain on arrival here she denies trauma there's been no fever chills or other complaints reported Review of systems: As per history of present illness and below otherwise all systems reviewed and negative. Past medical history: As per history of present illness and as reviewed below otherwise noncontributory. Surgical history: As per history of present illness and as reviewed below otherwise noncontributory. Social history: No reported history of drug or alcohol abuse. Family history: As per history of present illness and as reviewed below otherwise noncontributory. Physical exam: HEENT: Atraumatic, normocephalic, pupils reactive, negative for conjunctival pallor or scleral icterus, mucous membranes moist, throat clear, neck supple, nontender, trachea midline. Lungs: Clear to auscultation, breath sounds equal bilaterally, chest nontender. Heart: S1S2, regular, negative for clicks, rubs, or JVD. Abdomen: Soft, nondistended, nontender. Negative for masses or hepatosplenomegaly. Negative for costovertebral tenderness. Pelvis: Stable nontender. Genitourinary: Deferred. Rectal: Deferred. Extremities: Atraumatic, negative for cords or calf pain. Neurovascular unremarkable. Neuro: Awake, alert, oriented. Cranial nerves II through XII unremarkable. Cerebellum unremarkable. Motor and sensory unremarkable throughout. Exam nonfocal. Diagnostics: CBC CMP troponin PT/INR chest x-ray EKG Therapeutics: To be determined Impression: #1 atypical chest pain #2 history of coronary artery disease Definitive disposition and diagnosis as appropriate pending reevaluation and review of above. chest Pain Score (Numeric/FACES): 8 - Related Data Allergies Allergy/AdvReac Type Severity Reaction Status Date / Time ibuprofen [From Motrin] Allergy Intermediate Headache Verified 05/21/18 20:15 Sulfa (Sulfonamide Allergy Intermediate Swollen Verified 05/21/18 20:15 Antibiotics) Eyes oxycodone Allergy Confusion/h Verified 05/21/18 20:15 allucinatio ns/depressi on Home Meds: Home Meds Atenolol 50 mg PO DAILY #30 tablet 02/17/14 [Rx] Lisinopril 10 mg PO DAILY #30 tablet 02/17/14 [Rx] FLUoxetine [PROzac] 20 mg PO DAILY 08/06/16 [History] Nitroglycerin [Nitrostat] 0.4 mg SL Q5M PRN 08/06/16 [History] atorvaSTATin [Lipitor] 10 mg PO BEDTIME 08/06/16 [History] buPROPion [Wellbutrin SR] 300 mg PO DAILY 08/06/16 [History] Omeprazole 40 mg PO BID 10/11/16 [History] Albuterol [Ventolin HFA] 1 - 2 puff INH ASDIRECTED PRN 11/04/17 [History] Clopidogrel Bisulfate [Plavix] 75 mg PO DAILY 11/04/17 [History] Pregabalin [Lyrica] 150 mg PO BID 11/04/17 [History] Sucralfate 1 gm PO QID 02/02/18 [History] Isosorbide Mononitrate [Isosorbide Mononitrate ER] 120 mg PO DAILY 05/21/18 [ History] Oxybutynin 10 mg PO DAILY 05/21/18 [History] Past Medical History HEENT History: Reports: Impaired Vision Other HEENT History: wears glasses, wears upper and lower dentures, lower denture not with her Cardiovascular History: Reports: CAD, High Cholesterol, Hypertension, [place], SOB on Exertion, Stents Other Cardiovascular History: peripheral arterial disease Respiratory History: Reports: COPD Other Respiratory History: h/o lung cancer couple of years ago Gastrointestinal History: Reports: Colon Polyp, GERD, GI Bleed, Other (See Below ) Genitourinary History: Reports: UTI, Recurrent GLOBAL CLINICAL LEADER History: Reports: , Other (See Below) Other GLOBAL CLINICAL LEADER History: breast surgery Musculoskeletal History: Reports: Arthritis, Back Pain, Chronic Other Musculoskeletal History: degenerative disc disease Neurological History: Reports: Concussion Psychiatric History: Reports: Addiction, Anxiety, Bipolar, Depression Endocrine/Metabolic History: Reports: Osteoporosis Hematologic History: Reports: Blood Transfusion(s) Oncologic (Cancer) History: Reports: Breast, Lung Dermatologic History: Reports: Eczema, Psoriasis - Infectious Disease History Infectious Disease History: Reports: Chicken Pox, Measles, Mumps - Past Surgical History Head Surgeries/Procedures: Reports: None HEENT Surgical History: Reports: Cataract Surgery, Tonsillectomy Cardiovascular Surgical History: Reports: Coronary Artery Stent, Other (See Below) Other Cardiovascular Surgeries/Procedures: angiogram, femoral arterial stent placements Respiratory Surgical History: Reports: Lung Biopsies Other Respiratory Surgeries/Procedures: right upper lobe 2016 GI Surgical History: Reports: Appendectomy, Colonoscopy, Polypectomy Female Surgical History: Reports: Breast Biopsy, Hysterectomy, Tubal Ligation Other Female Surgeries/Procedures: left breast lumpectomy for breast cancer ( radiation 2006) Oncologic Surgical History: Reports: Biopsy of Breast, Lumpectomy Social & Family History - Family History Family Medical History: Noncontributory - Caffeine Use Caffeine Use: Reports: Coffee, Soda Caffeine Use Comment: 2 drinks/day ED ROS GENERAL - Review of Systems Review Of Systems: ROS reveals no pertinent complaints other than HPI. ED EXAM, GENERAL - Physical Exam Exam: See Below (See dictation) Course - Vital Signs Text/Narrative:: Patient emergency room course is benign unremarkable she remains pain-free I discussed with her her diagnostics a concern about her presentation as well as the elevated d-dimer at this time patient declines any more testing and declined observation for admission she states she'll follow-up with her doctor return as needed as discussed Last Recorded V/S: Last Vital Signs Temp 35.8 C 09/04/18 21:24 Pulse 58 L 09/04/18 21:24 Resp 18 09/04/18 21:24 BP 138/81 09/04/18 21:24 Pulse Ox 96 09/04/18 21:24 - Orders/Labs/Meds Orders: Active Orders 24 hr Category Date Time Status EKG Documentation Completion [RC] STAT Care 09/04/18 21:38 Active Chest 1V Frontal [CR] Stat Exams 09/04/18 21:38 Taken Labs: Laboratory Tests 09/04/18 09/04/18 09/04/18 Range/Units 21:40 21:40 21:40 WBC 7.43 (4.0-11.0) K/uL RBC 5.04 (4.30-5.90) M/uL Hgb 14.4 (12.0-16.0) g/dL Hct 43.3 (36.0-46.0) % MCV 85.9 (80.0-98.0) fL MCH 28.6 (27.0-32.0) pg MCHC 33.3 (31.0-37.0) g/dL RDW Std Deviation 51.0 (28.0-62.0) fl RDW Coeff of Oscar 16 H (11.0-15.0) % Plt Count 278 (150-400) K/uL MPV 10.80 (7.40-12.00) fL Neut % (Auto) 56.3 (48.0-80.0) % Lymph % (Auto) 34.3 (16.0-40.0) % Hinds % (Auto) 7.0 (0.0-15.0) % Eos % (Auto) 2.0 (0.0-7.0) % Baso % (Auto) 0.4 (0.0-1.5) % Neut # (Auto) 4.2 (1.4-5.7) K/uL Lymph # (Auto) 2.6 H (0.6-2.4) K/uL Hinds # (Auto) 0.5 (0.0-0.8) K/uL Eos # (Auto) 0.2 (0.0-0.7) K/uL Baso # (Auto) 0.0 (0.0-0.1) K/uL Nucleated RBC % 0.0 /100WBC Nucleated RBCs # 0 K/uL INR 1.00 D-Dimer, Quantitative 2.23 H (0.0-0.50) mg/L FEU Sodium 141 (136-145) mmol/L Potassium 4.9 (3.5-5.1) mmol/L Chloride 104 (98-107) mmol/L Carbon Dioxide 28.2 (21.0-32.0) mmol/L BUN 20 H (7.0-18.0) mg/dL Creatinine 1.8 H (0.6-1.0) mg/dL Est Cr Clr Drug Dosing TNP Estimated GFR (MDRD) 27.9 ml/min Glucose 102 (74-106) mg/dL Calcium 9.3 (8.5-10.1) mg/dL Total Bilirubin 0.4 (0.2-1.0) mg/dL AST 24 (15-37) IU/L ALT 22 (14-63) IU/L Alkaline Phosphatase 99 (46-116) U/L Troponin I < 0.050 (0.000-0.056) ng/mL Total Protein 7.5 (6.4-8.2) g/dL Albumin 3.7 (3.4-5.0) g/dL Globulin 3.8 (2.6-4.0) g/dL Albumin/Globulin Ratio 1.0 (0.9-1.6) Departure - Departure Time of Disposition: 22:24 Disposition: Home, Self-Care 01 Condition: Good Clinical Impression: Atypical chest pain - Discharge Information Referrals: PCP,None [Primary Care Provider] - Forms: ED Department Discharge Additional Instructions: The following information is given to patients seen in the emergency department who are being discharged to home. This information is to outline your options for follow-up care. We provide all patients seen in our emergency department with a follow-up referral. The need for follow-up, as well as the timing and circumstances, are variable depending upon the specifics of your emergency department visit. If you don't have a primary care physician on staff, we will provide you with a referral. We always advise you to contact your personal physician following an emergency department visit to inform them of the circumstance of the visit and for follow-up with them and/or the need for any referrals to a consulting specialist. The emergency department will also refer you to a specialist when appropriate. This referral assures that you have the opportunity for followup care with a specialist. All of these measure are taken in an effort to provide you with optimal care, which includes your followup. Under all circumstances we always encourage you to contact your private physician who remains a resource for coordinating your care. When calling for followup care, please make the office aware that this follow-up is from your recent emergency room visit. If for any reason you are refused follow-up, please contact the [facility] emergency department at and asked to speak to the emergency department charge nurse. Follow-up primary medical doctor as discussed return as needed as discussed - My Orders Last 24 Hours: My Active Orders 09/04/18 21:38 EKG Documentation Completion [RC] STAT Chest 1V Frontal [CR] Stat - Assessment/Plan Last 24 Hours: My Active Orders 09/04/18 21:38 EKG Documentation Completion [RC] STAT Chest 1V Frontal [CR] Stat
[2018-09-04 22:18] LABS: CHLORIDE,CL 104 mmol/L (98-107); SODIUM,NA 141 mmol/L (136-145)
--- NOTE | 2018-09-04 22:24 | CR ---
Indication: Pain and shortness of breath Technique: Chest 1 view Comparison: None Findings/Impression: Cardiovascular and mediastinum: Borderline cardiomegaly. Normal pulmonary vasculature. Lungs and pleural space: Lungs are clear. No sign of infiltrate or mass. No sign of pleural effusion. No pneumothorax. Bones and soft tissues: No significant findings. Dictated by Christina Gomez MD @ Sep 04 2018 10:22PM Signed by Dr. Christina Gomez @ Sep 04 2018 10:23PM
[2018-09-05 02:50] VITALS: BP 125/59
== END 2018-09-04 22:40 | disposition home or self-care (01) ==
LOC: MW.ED 21:24
DX: R07.89 Other chest pain (principal); I25.10 Atherosclerotic heart disease of native coronary artery without angina pectoris; E78.00 Pure hypercholesterolemia, unspecified; I10 Essential (primary) hypertension; I25.2 Old myocardial infarction; J44.9 Chronic obstructive pulmonary disease, unspecified; F41.9 Anxiety disorder, unspecified; F32.9 Major depressive disorder, single episode, unspecified; Z88.2 Allergy status to sulfonamides; Z88.8 Allergy status to other drugs, medicaments and biological substances; Z88.5 Allergy status to narcotic agent; Z79.899 Other long term (current) drug therapy; Z79.01 Long term (current) use of anticoagulants
CPT/HCPCS: 36415; 71045; 71045-26; 80053; 84484; 85025; 85379; 85610; 93005; 99285-25

== ENCOUNTER 2018-12-18 10:26 | Emergency (ER) | payer MEDICARE, MEDICAID ==
[2018-12-18] MEDS ORDERED: Sodium Chloride 0.9% 2.5 ML Syringe FLUSH PRN (10:36)
[2018-12-18] MEDS ORDERED: Aspirin 81 MG Tab.Chew PO ONE (10:36)
[2018-12-18] MEDS ORDERED: Sodium Chloride 0.9% 10 ML Syringe FLUSH PRN (10:36)
--- NOTE | 2018-12-18 10:52 | EDM.PDOC ---
<Eduardo Chavarria E - Last Filed: 12/18/18 11:36> ED HPI GENERAL MEDICAL PROBLEM - General Chief Complaint: Chest Pain Stated Complaint: CHEST PAINS Time Seen by Provider: 12/18/18 10:34 - Related Data Allergies Allergy/AdvReac Type Severity Reaction Status Date / Time ibuprofen [From Motrin] Allergy Intermediate Headache Verified 05/21/18 20:15 Sulfa (Sulfonamide Allergy Intermediate Swollen Verified 05/21/18 20:15 Antibiotics) Eyes oxycodone Allergy Confusion/h Verified 05/21/18 20:15 allucinatio ns/depressi on Home Meds: Home Meds Atenolol 50 mg PO DAILY #30 tablet 02/17/14 [Rx] Lisinopril 10 mg PO DAILY #30 tablet 02/17/14 [Rx] FLUoxetine [PROzac] 20 mg PO DAILY 08/06/16 [History] Nitroglycerin [Nitrostat] 0.4 mg SL Q5M PRN 08/06/16 [History] atorvaSTATin [Lipitor] 10 mg PO BEDTIME 08/06/16 [History] buPROPion [Wellbutrin SR] 300 mg PO DAILY 08/06/16 [History] Omeprazole 40 mg PO BID 10/11/16 [History] Albuterol [Ventolin HFA] 1 - 2 puff INH ASDIRECTED PRN 11/04/17 [History] Clopidogrel Bisulfate [Plavix] 75 mg PO DAILY 11/04/17 [History] Pregabalin [Lyrica] 150 mg PO BID 11/04/17 [History] Sucralfate 1 gm PO QID 02/02/18 [History] Isosorbide Mononitrate [Isosorbide Mononitrate ER] 120 mg PO DAILY 05/21/18 [ History] Oxybutynin 10 mg PO DAILY 05/21/18 [History] Course - Vital Signs Last Recorded V/S: Last Vital Signs Temp 36.0 C 12/18/18 10:33 Pulse 60 12/18/18 10:33 Resp 18 12/18/18 10:33 BP 111/65 12/18/18 10:33 Pulse Ox 95 12/18/18 10:33 - Orders/Labs/Meds Orders: Active Orders 24 hr Category Date Time Status EKG Documentation Completion [RC] STAT Care 12/18/18 10:36 Active Chest 1V Frontal [CR] Stat Exams 12/18/18 10:36 Taken CULTURE URINE [RM] Stat Lab 12/18/18 11:30 Received LORazepam [Ativan] Med 12/18/18 11:50 Once 0.5 mg PO ONETIME ONE Sodium Chloride 0.9% [Saline Flush] Med 12/18/18 10:36 Active 10 ml FLUSH ASDIRECTED PRN Sodium Chloride 0.9% [Saline Flush] Med 12/18/18 10:36 Active 2.5 ml FLUSH ASDIRECTED PRN Saline Lock Insert [OM.PC] Stat Oth 12/18/18 10:36 Ordered Medication Orders Sodium Chloride (Saline Flush) 10 ml FLUSH ASDIRECTED PRN PRN Reason: Keep Vein Open Last Admin: 12/18/18 10:55 Dose: 10 ml Sodium Chloride (Saline Flush) 2.5 ml FLUSH ASDIRECTED PRN PRN Reason: Keep Vein Open Last Admin: 12/18/18 10:55 Dose: 2.5 ml Labs: Laboratory Tests 12/18/18 12/18/18 12/18/18 Range/Units 10:45 10:45 11:30 WBC 6.70 (4.0-11.0) K/uL RBC 4.79 (4.30-5.90) M/uL Hgb 13.5 (12.0-16.0) g/dL Hct 42.5 (36.0-46.0) % MCV 88.7 (80.0-98.0) fL MCH 28.2 (27.0-32.0) pg MCHC 31.8 (31.0-37.0) g/dL RDW Std Deviation 48.5 (28.0-62.0) fl RDW Coeff of Oscar 15 (11.0-15.0) % Plt Count 227 (150-400) K/uL MPV 9.70 (7.40-12.00) fL Neut % (Auto) 55.9 (48.0-80.0) % Lymph % (Auto) 34.2 (16.0-40.0) % [place] % (Auto) 7.3 (0.0-15.0) % Eos % (Auto) 2.2 (0.0-7.0) % Baso % (Auto) 0.4 (0.0-1.5) % Neut # (Auto) 3.7 (1.4-5.7) K/uL Lymph # (Auto) 2.3 (0.6-2.4) K/uL [place] # (Auto) 0.5 (0.0-0.8) K/uL Eos # (Auto) 0.2 (0.0-0.7) K/uL Baso # (Auto) 0.0 (0.0-0.1) K/uL Nucleated RBC % 0.0 /100WBC Nucleated RBCs # 0 K/uL Sodium 136 (136-145) mmol/L Potassium 4.4 (3.5-5.1) mmol/L Chloride 103 (98-107) mmol/L Carbon Dioxide 26.7 (21.0-32.0) mmol/L BUN 14 (7.0-18.0) mg/dL Creatinine 0.8 (0.6-1.0) mg/dL Est Cr Clr Drug Dosing TNP Estimated GFR (MDRD) > 60.0 ml/min Glucose 104 (74-106) mg/dL Calcium 9.3 (8.5-10.1) mg/dL Total Bilirubin 0.4 (0.2-1.0) mg/dL AST 19 (15-37) IU/L ALT 18 (14-63) IU/L Alkaline Phosphatase 95 (46-116) U/L Troponin I < 0.050 (0.000-0.056) ng/mL Total Protein 7.0 (6.4-8.2) g/dL Albumin 3.8 (3.4-5.0) g/dL Globulin 3.2 (2.6-4.0) g/dL Albumin/Globulin Ratio 1.2 (0.9-1.6) Urine Color YELLOW Urine Appearance CLEAR Urine pH 5.5 (5.0-8.0) Ur Specific Whitman <= 1.005 (1.001-1.035) Urine Protein NEGATIVE (NEGATIVE) mg/dL Urine Glucose (UA) NEGATIVE (NEGATIVE) mg/dL Urine Ketones NEGATIVE (NEGATIVE) mg/dL Urine Occult Blood TRACE-INTACT H (NEGATIVE) Urine Nitrite NEGATIVE (NEGATIVE) Urine Bilirubin NEGATIVE (NEGATIVE) Urine Urobilinogen 0.2 (<2.0) EU/dL Ur Leukocyte Esterase TRACE H (NEGATIVE) Urine RBC 0-1 (0-2/HPF) Urine WBC 0-1 (0-5/HPF) Ur Epithelial Cells FEW (NONE-FEW) Urine Bacteria FEW (NEGATIVE) Meds: Medications Generic Name Dose Route Start Last Admin Trade Name Freq PRN Reason Stop Dose Admin Sodium Chloride 10 ml 12/18/18 10:36 12/18/18 10:55 Saline Flush FLUSH 10 ml ASDIRECTED PRN Administration Keep Vein Open Sodium Chloride 2.5 ml 12/18/18 10:36 12/18/18 10:55 Saline Flush FLUSH 2.5 ml ASDIRECTED PRN Administration Keep Vein Open Discontinued Medications Generic Name Dose Route Start Last Admin Trade Name Freq PRN Reason Stop Dose Admin Aspirin 324 mg 12/18/18 10:36 12/18/18 10:55 Aspirin PO 12/18/18 10:37 324 mg ONETIME ONE Administration Lorazepam 0.5 mg 12/18/18 11:50 Ativan PO 12/18/18 11:51 ONETIME ONE Departure - Departure Disposition: Home, Self-Care 01 Clinical Impression: Chest pain Qualifiers: Chest pain type: unspecified Qualified Code(s): R07.9 - Chest pain, unspecified Instructions: Nonspecific Chest Pain Referrals: PCP,None [Primary Care Provider] - Forms: ED Department Discharge Additional Instructions: The following information is given to patients seen in the emergency department who are being discharged to home. This information is to outline your options for follow-up care. We provide all patients seen in our emergency department with a follow-up referral. The need for follow-up, as well as the timing and circumstances, are variable depending upon the specifics of your emergency department visit. If you don't have a primary care physician on staff, we will provide you with a referral. We always advise you to contact your personal physician following an emergency department visit to inform them of the circumstance of the visit and for follow-up with them and/or the need for any referrals to a consulting specialist. The emergency department will also refer you to a specialist when appropriate. This referral assures that you have the opportunity for follow-up care with a specialist. All of these measure are taken in an effort to provide you with optimal care, which includes your follow-up. Under all circumstances we always encourage you to contact your private physician who remains a resource for coordinating your care. When calling for follow-up care, please make the office aware that this follow-up is from your recent emergency room visit. If for any reason you are refused follow-up, please contact the [facility] Emergency Department at and asked to speak to the emergency department charge nurse. [facility] Primary Care [address] [place] [address] [facility] [address] [place] [address] 1. Stop smoking. 2. Follow up with primary care provider as discussed. Return to ED as needed and as discussed. <Mimi Pettit - Last Filed: 12/18/18 11:56> ED HPI GENERAL MEDICAL PROBLEM - General Source of Information: Reports: Patient History Limitations: Reports: No Limitations - History of Present Illness INITIAL COMMENTS - FREE TEXT/NARRATIVE: HISTORY AND PHYSICAL: History of present illness: Patient is a 68-year-old female who is presenting to the ED for intermittent chest pain that began two days prior to arrival. Patient states that the chest pain comes on during times of stress and with tobacco use. The patient reports significant life stress over the last two days and states she has pain relief with rest. Patient reports that the pain is sharp and does not radiate. She also reports dizziness and one episode of vomiting. She has a history of CHF, GERD, and COPD. Patient denies fever, chills, shortness of breath, or cough. Denies headache, neck stiff ness, change in vision, syncope, or near syncope. Denies nausea, abdominal pain, diarrhea, constipation, or dysuria. Has not noted any blood in urine or stool. Patient has been eating and drinking appropriately. Review of systems: As per history of present illness and below otherwise all systems reviewed and negative. Past medical history: As per history of present illness and as reviewed below otherwise noncontributory. Surgical history: As per history of present illness and as reviewed below otherwise noncontributory. Social history: See social history for further information Family history: As per history of present illness and as reviewed below otherwise noncontributory. Physical exam: General: Patient is alert, oriented, and in no acute distress. Patient sitting comfortably on exam table. Patient is nontoxic appearing. Vital signs are stable and have been reviewed by me. HEENT: Atraumatic, normocephalic, pupils equal and reactive bilaterally, negative for conjunctival pallor or scleral icterus, mucous membranes moist, TMs normal bilaterally, throat clear, neck supple, nontender, trachea midline. No drooling or trismus noted. No meningeal signs. No hot potato voice noted. Lungs: Clear to auscultation, breath sounds equal bilaterally, chest nontender. Heart: S1S2, regular rate and rhythm without overt murmur. No edema. Abdomen: Soft, nondistended, tenderness with palpation in the upper left quadrant. Negative for masses or hepatosplenomegaly. Negative for costovertebral tenderness. Pelvis: Stable nontender. Genitourinary: Deferred. Rectal: Deferred. Skin: Intact, warm, dry. No lesions or rashes noted. Extremities: Atraumatic, negative for cords or calf pain. Neurovascular unremarkable. Neuro: Awake, alert, oriented. Cranial nerves II through XII unremarkable. Cerebellum unremarkable. Motor and sensory unremarkable throughout. Exam nonfocal. Notes: EKG shows no acute findings; normal sinus rhythm with rate of 58. Lab work is unremarkable. Patient is pain free. Vital signs are stable. Did offer her for admission for chest pain rule out PA. Patient declines. We discussed signs and symptoms that would prompt her to return to the emergency room. She requests something for her anxiety. will give her one tablet of Ativan for home. Discussed the importance of following up with primary care provider. Voices understanding and is agreeable to plan of care. Denies any further questions or concerns at this time. Diagnostics: CBC, CMP, troponin, CXR, EKG, UA Therapeutics: Saline Lock, ASA, Ativan 0.5mg Prescription: None. Impression: Chest pain, intermittent Plan: 1. Stop smoking. 2. Follow up with your primary care provider as discussed. Return to the ED as needed and as discussed. Definitive disposition and diagnosis as appropriate pending reevaluation and review of above. Past Medical History HEENT History: Reports: Impaired Vision Other HEENT History: wears glasses, wears upper and lower dentures, lower denture not with her Cardiovascular History: Reports: CAD, High Cholesterol, Hypertension, PA, SOB on Exertion, Stents Other Cardiovascular History: peripheral arterial disease Respiratory History: Reports: COPD Other Respiratory History: h/o lung cancer couple of years ago Gastrointestinal History: Reports: Colon Polyp, GERD, GI Bleed, Other (See Below ) Genitourinary History: Reports: UTI, Recurrent [employer] FIELD MANAGER History: Reports: , Other (See Below) Other [employer]AL FIELD MANAGER History: breast surgery Musculoskeletal History: Reports: Arthritis, Back Pain, Chronic Other Musculoskeletal History: degenerative disc disease Neurological History: Reports: Concussion Psychiatric History: Reports: Addiction, Anxiety, Bipolar, Depression Endocrine/Metabolic History: Reports: Osteoporosis Hematologic History: Reports: Blood Transfusion(s) Oncologic (Cancer) History: Reports: Breast, Lung Dermatologic History: Reports: Eczema, Psoriasis - Infectious Disease History Infectious Disease History: Reports: Chicken Pox, Measles, Mumps - Past Surgical History Head Surgeries/Procedures: Reports: None HEENT Surgical History: Reports: Cataract Surgery, Tonsillectomy Cardiovascular Surgical History: Reports: Coronary Artery Stent, Other (See Below) Other Cardiovascular Surgeries/Procedures: angiogram, femoral arterial stent placements Respiratory Surgical History: Reports: Lung Biopsies Other Respiratory Surgeries/Procedures: right upper lobe 2016 GI Surgical History: Reports: Appendectomy, Colonoscopy, Polypectomy Female Surgical History: Reports: Breast Biopsy, Hysterectomy, Tubal Ligation Other Female Surgeries/Procedures: left breast lumpectomy for breast cancer ( radiation 2006) Oncologic Surgical History: Reports: Biopsy of Breast, Lumpectomy Social & Family History - Family History Family Medical History: Noncontributory - Caffeine Use Caffeine Use: Reports: Coffee, Soda Caffeine Use Comment: 2 drinks/day ED ROS GENERAL - Review of Systems Review Of Systems: ROS reveals no pertinent complaints other than HPI. ED EXAM, GENERAL - Physical Exam Exam: See Below (see dictations) Course - Orders/Labs/Meds Labs: Laboratory Tests 12/18/18 12/18/18 12/18/18 Range/Units 10:45 10:45 11:30 WBC 6.70 (4.0-11.0) K/uL RBC 4.79 (4.30-5.90) M/uL Hgb 13.5 (12.0-16.0) g/dL Hct 42.5 (36.0-46.0) % MCV 88.7 (80.0-98.0) fL MCH 28.2 (27.0-32.0) pg MCHC 31.8 (31.0-37.0) g/dL RDW Std Deviation 48.5 (28.0-62.0) fl RDW Coeff of Oscar 15 (11.0-15.0) % Plt Count 227 (150-400) K/uL MPV 9.70 (7.40-12.00) fL Neut % (Auto) 55.9 (48.0-80.0) % Lymph % (Auto) 34.2 (16.0-40.0) % [place] % (Auto) 7.3 (0.0-15.0) % Eos % (Auto) 2.2 (0.0-7.0) % Baso % (Auto) 0.4 (0.0-1.5) % Neut # (Auto) 3.7 (1.4-5.7) K/uL Lymph # (Auto) 2.3 (0.6-2.4) K/uL [place] # (Auto) 0.5 (0.0-0.8) K/uL Eos # (Auto) 0.2 (0.0-0.7) K/uL Baso # (Auto) 0.0 (0.0-0.1) K/uL Nucleated RBC % 0.0 /100WBC Nucleated RBCs # 0 K/uL Sodium 136 (136-145) mmol/L Potassium 4.4 (3.5-5.1) mmol/L Chloride 103 (98-107) mmol/L Carbon Dioxide 26.7 (21.0-32.0) mmol/L BUN 14 (7.0-18.0) mg/dL Creatinine 0.8 (0.6-1.0) mg/dL Est Cr Clr Drug Dosing TNP Estimated GFR (MDRD) > 60.0 ml/min Glucose 104 (74-106) mg/dL Calcium 9.3 (8.5-10.1) mg/dL Total Bilirubin 0.4 (0.2-1.0) mg/dL AST 19 (15-37) IU/L ALT 18 (14-63) IU/L Alkaline Phosphatase 95 (46-116) U/L Troponin I < 0.050 (0.000-0.056) ng/mL Total Protein 7.0 (6.4-8.2) g/dL Albumin 3.8 (3.4-5.0) g/dL Globulin 3.2 (2.6-4.0) g/dL Albumin/Globulin Ratio 1.2 (0.9-1.6) Urine Color YELLOW Urine Appearance CLEAR Urine pH 5.5 (5.0-8.0) Ur Specific [place] <= 1.005 (1.001-1.035) Urine Protein NEGATIVE (NEGATIVE) mg/dL Urine Glucose (UA) NEGATIVE (NEGATIVE) mg/dL Urine Ketones NEGATIVE (NEGATIVE) mg/dL Urine Occult Blood TRACE-INTACT H (NEGATIVE) Urine Nitrite NEGATIVE (NEGATIVE) Urine Bilirubin NEGATIVE (NEGATIVE) Urine Urobilinogen 0.2 (<2.0) EU/dL Ur Leukocyte Esterase TRACE H (NEGATIVE) Urine RBC 0-1 (0-2/HPF) Urine WBC 0-1 (0-5/HPF) Ur Epithelial Cells FEW (NONE-FEW) Urine Bacteria FEW (NEGATIVE) Departure - Departure Time of Disposition: 11:55
[2018-12-18 11:41] LABS: CHLORIDE,CL 103 mmol/L (98-107); SODIUM,NA 136 mmol/L (136-145)
[2018-12-18] MEDS ORDERED: LORazepam 0.5 MG Tab PO ONE (11:50)
--- NOTE | 2018-12-18 12:08 | CR ---
INDICATION: Chest pain. TECHNIQUE: Portable AP upright view of the chest. COMPARISON: 09/04/2018. FINDINGS: Stable cardiac, mediastinal and hilar contours. Heart size is upper limits of normal. Pulmonary vasculature is unremarkable. Lungs are grossly clear. No appreciable pleural fluid on this single view study. No pneumothorax. IMPRESSION: No signs of acute cardiopulmonary disease. Dictated by Juan Brooke MD @ 12/18/2018 12:06:54 PM Dictated by: Juan Brooke MD @ 12/18/2018 12:07:04 (Electronically Signed)
[2018-12-18 13:01] VITALS: BP 153/52
== END 2018-12-18 12:03 | disposition home or self-care (01) ==
LOC: MW.ED 10:26
DX: R07.9 Chest pain, unspecified (principal); I11.0 Hypertensive heart disease with heart failure; I50.9 Heart failure, unspecified; I25.10 Atherosclerotic heart disease of native coronary artery without angina pectoris; I25.2 Old myocardial infarction; M19.90 Unspecified osteoarthritis, unspecified site; K21.9 Gastro-esophageal reflux disease without esophagitis; F41.9 Anxiety disorder, unspecified; F32.9 Major depressive disorder, single episode, unspecified; Z98.49 Cataract extraction status, unspecified eye; Z98.890 Other specified postprocedural states; Z95.5 Presence of coronary angioplasty implant and graft; Z98.51 Tubal ligation status; Z90.710 Acquired absence of both cervix and uterus; Z90.49 Acquired absence of other specified parts of digestive tract; Z88.2 Allergy status to sulfonamides; Z88.6 Allergy status to analgesic agent; Z79.899 Other long term (current) drug therapy
CPT/HCPCS: 36415; 71045; 80053; 81001; 84484; 85025; 87086; 93005; 99285; A9270; 99284

== ENCOUNTER 2019-04-03 17:31 | Emergency (ER) | payer MEDICARE ==
[2019-04-03] MEDS ORDERED: Sodium Chloride 0.9% 10 ML Syringe FLUSH PRN (17:36)
[2019-04-03] MEDS ORDERED: Sodium Chloride 0.9% 2.5 ML Syringe FLUSH PRN (17:36)
--- NOTE | 2019-04-03 17:46 | EDM.PDOC ---
ED HPI GENERAL MEDICAL PROBLEM - General Chief Complaint: Chest Pain Stated Complaint: chest pain Time Seen by Provider: 04/03/19 17:35 Source of Information: Reports: Patient History Limitations: Reports: No Limitations - History of Present Illness INITIAL COMMENTS - FREE TEXT/NARRATIVE: HISTORY AND PHYSICAL: History of present illness: Patient is a 5-year-old female presents to the ED today via EMS with concern of chest pain since about 7 this morning. Patient states she has a history of stents that were placed 2 years ago. Patient states she has some other heart history but she is unsure what her health history is. Patient states she has a history of lung cancer and breast cancer but does not have any current cancer that she is aware of. Patient states she took 4 nitroglycerin throughout the day which did improve her chest pain but it was come back. Currently, patient states she does not have any chest pain at this time. Patient states the chest pain was on the left side under her breast. Patient denies any associated symptoms with this. Patient denies any other symptoms or concerns at this time. Patient states she did take full dose aspirin one her symptoms came on. Patient denies fever, chills, shortness of breath, or cough. Denies headache, neck stiff ness, change in vision, syncope, or near syncope. Denies nausea, vomiting, abdominal pain, diarrhea, constipation, or dysuria. Has not noted any blood in urine or stool. Patient has been eating and drinking appropriately. Review of systems: As per history of present illness and below otherwise all systems reviewed and negative. Past medical history: As per history of present illness and as reviewed below otherwise noncontributory. Surgical history: As per history of present illness and as reviewed below otherwise noncontributory. Social history: See social history for further information Family history: As per history of present illness and as reviewed below otherwise noncontributory. Physical exam: General: Patient is alert, oriented, and in no acute distress. Patient laying comfortably on exam table. HEENT: Atraumatic, normocephalic, pupils equal and reactive bilaterally, negative for conjunctival pallor or scleral icterus, mucous membranes moist, TMs normal bilaterally, throat clear, neck supple, nontender, trachea midline. No drooling or trismus noted. No meningeal signs. No hot potato voice noted. Lungs: Clear to auscultation, breath sounds equal bilaterally, chest nontender. Heart: S1S2, regular rate and rhythm without overt murmur Abdomen: Soft, nondistended, nontender. Negative for masses or hepatosplenomegaly. Negative for costovertebral tenderness. Pelvis: Stable nontender. Genitourinary: Deferred. Rectal: Deferred. Skin: Intact, warm, dry. No lesions or rashes noted. Extremities: Atraumatic, negative for cords or calf pain. Neurovascular unremarkable. Neuro: Awake, alert, oriented. Cranial nerves II through XII unremarkable. Cerebellum unremarkable. Motor and sensory unremarkable throughout. Exam nonfocal. Notes: Patient remains chest pain-free throughout the whole stay in the ED. Admission for observation was offered to patient but she declines at this time. All risks versus benefits discussed with patient and expresses understanding. Voices understanding and is agreeable to plan of care. Denies any further questions or concerns at this time. Diagnostics: CBC, CMP, EKG, chest x-ray, troponin (patient declines UA) Therapeutics: Saline lock Prescription: None Impression: Chest pain, resolved Plan: 1. You can alternate ibuprofen and Tylenol as directed for pain and discomfort. 2. Follow-up with your primary care provider and your molding manager as discussed. Return to the ED as needed and as discussed. Definitive disposition and diagnosis as appropriate pending reevaluation and review of above. Left Chest Pain Score (Numeric/FACES): 5 - Related Data Allergies Allergy/AdvReac Type Severity Reaction Status Date / Time ibuprofen [From Motrin] Allergy Intermediate Headache Verified 04/03/19 17:34 Sulfa (Sulfonamide Allergy Intermediate Swollen Verified 04/03/19 17:34 Antibiotics) Eyes oxycodone Allergy Confusion/h Verified 04/03/19 17:34 allucinatio ns/depressi on Home Meds: Home Meds Atenolol 50 mg PO DAILY #30 tablet 02/17/14 [Rx] Lisinopril 10 mg PO DAILY #30 tablet 02/17/14 [Rx] FLUoxetine [PROzac] 20 mg PO DAILY 08/06/16 [History] Nitroglycerin [Nitrostat] 0.4 mg SL Q5M PRN 08/06/16 [History] atorvaSTATin [Lipitor] 10 mg PO BEDTIME 08/06/16 [History] buPROPion [Wellbutrin SR] 300 mg PO DAILY 08/06/16 [History] Omeprazole 40 mg PO BID 10/11/16 [History] Albuterol [Ventolin HFA] 1 - 2 puff INH ASDIRECTED PRN 11/04/17 [History] Clopidogrel Bisulfate [Plavix] 75 mg PO DAILY 11/04/17 [History] Pregabalin [Lyrica] 150 mg PO BID 11/04/17 [History] Sucralfate 1 gm PO QID 02/02/18 [History] Isosorbide Mononitrate [Isosorbide Mononitrate ER] 120 mg PO DAILY 05/21/18 [ History] Oxybutynin 10 mg PO DAILY 05/21/18 [History] Past Medical History HEENT History: Reports: Impaired Vision Other HEENT History: wears glasses, wears upper and lower dentures, lower denture not with her Cardiovascular History: Reports: CAD, High Cholesterol, Hypertension, [place], SOB on Exertion, Stents Other Cardiovascular History: peripheral arterial disease Respiratory History: Reports: COPD Other Respiratory History: h/o lung cancer couple of years ago Gastrointestinal History: Reports: Colon Polyp, GERD, GI Bleed, Other (See Below ) Genitourinary History: Reports: UTI, Recurrent HUMAN RESOURCES BENEFITS COORDINATOR History: Reports: , Other (See Below) Other HUMAN RESOURCES BENEFITS COORDINATOR History: breast surgery Musculoskeletal History: Reports: Arthritis, Back Pain, Chronic Other Musculoskeletal History: degenerative disc disease Neurological History: Reports: Concussion Psychiatric History: Reports: Addiction, Anxiety, Bipolar, Depression Endocrine/Metabolic History: Reports: Osteoporosis Hematologic History: Reports: Blood Transfusion(s) Oncologic (Cancer) History: Reports: Breast, Lung Dermatologic History: Reports: Eczema, Psoriasis - Infectious Disease History Infectious Disease History: Reports: None - Past Surgical History Head Surgeries/Procedures: Reports: None HEENT Surgical History: Reports: Cataract Surgery, Tonsillectomy Cardiovascular Surgical History: Reports: Coronary Artery Stent, Other (See Below) Other Cardiovascular Surgeries/Procedures: angiogram, femoral arterial stent placements Respiratory Surgical History: Reports: Lung Biopsies Other Respiratory Surgeries/Procedures: right upper lobe 2016 GI Surgical History: Reports: Appendectomy, Colonoscopy, Polypectomy Female Surgical History: Reports: Breast Biopsy, Hysterectomy, Tubal Ligation Other Female Surgeries/Procedures: left breast lumpectomy for breast cancer ( radiation 2006) Oncologic Surgical History: Reports: Biopsy of Breast, Lumpectomy Social & Family History - Family History Family Medical History: Noncontributory - Tobacco Use Smoking Status *Q: Former Smoker Years of Tobacco use: 55 Used Tobacco, but Quit: Yes Month/Year Tobacco Last Used: 2018 - Caffeine Use Caffeine Use: Reports: Coffee Caffeine Use Comment: 2 drinks/day - Recreational Drug Use Recreational Drug Use: No ED ROS GENERAL - Review of Systems Review Of Systems: ROS reveals no pertinent complaints other than HPI. ED EXAM, GENERAL - Physical Exam Exam: See Below (see dictation) Course - Vital Signs Last Recorded V/S: Last Vital Signs Temp 97.5 F 04/03/19 17:34 Pulse 58 L 04/03/19 17:34 Resp 16 04/03/19 17:34 BP 145/100 H 04/03/19 17:34 Pulse Ox 94 L 04/03/19 17:34 - Orders/Labs/Meds Orders: Active Orders 24 hr Category Date Time Status EKG 12 Lead [EKG Documentation Completion] [RC] STAT Care 04/03/19 17:48 Active UA RFX LEÓN AND CULT IF INDIC [URIN] Stat Lab 04/03/19 17:35 Ordered Sodium Chloride 0.9% [Saline Flush] Med 04/03/19 17:36 Active 10 ml FLUSH ASDIRECTED PRN Sodium Chloride 0.9% [Saline Flush] Med 04/03/19 17:36 Active 2.5 ml FLUSH ASDIRECTED PRN Saline Lock Insert [OM.PC] Stat Oth 04/03/19 17:36 Ordered Medication Orders Sodium Chloride (Saline Flush) 10 ml FLUSH ASDIRECTED PRN PRN Reason: Keep Vein Open Sodium Chloride (Saline Flush) 2.5 ml FLUSH ASDIRECTED PRN PRN Reason: Keep Vein Open Labs: Laboratory Tests 04/03/19 04/03/19 04/03/19 Range/Units 17:35 17:35 17:35 WBC 9.72 (4.0-11.0) K/uL RBC 4.99 (4.30-5.90) M/uL Hgb 14.0 (12.0-16.0) g/dL Hct 43.6 (36.0-46.0) % MCV 87.4 (80.0-98.0) fL MCH 28.1 (27.0-32.0) pg MCHC 32.1 (31.0-37.0) g/dL RDW Std Deviation 46.3 (28.0-62.0) fl RDW Coeff of Oscar 15 (11.0-15.0) % Plt Count 335 (150-400) K/uL MPV 9.70 (7.40-12.00) fL Neut % (Auto) 68.3 (48.0-80.0) % Lymph % (Auto) 22.4 (16.0-40.0) % [place] % (Auto) 7.7 (0.0-15.0) % Eos % (Auto) 1.3 (0.0-7.0) % Baso % (Auto) 0.3 (0.0-1.5) % Neut # (Auto) 6.6 H (1.4-5.7) K/uL Lymph # (Auto) 2.2 (0.6-2.4) K/uL [place] # (Auto) 0.8 (0.0-0.8) K/uL Eos # (Auto) 0.1 (0.0-0.7) K/uL Baso # (Auto) 0.0 (0.0-0.1) K/uL Nucleated RBC % 0.0 /100WBC Nucleated RBCs # 0 K/uL INR 1.07 Sodium 136 (136-145) mmol/L Potassium 4.2 (3.5-5.1) mmol/L Chloride 98 (98-107) mmol/L Carbon Dioxide 30.6 (21.0-32.0) mmol/L BUN 17 (7.0-18.0) mg/dL Creatinine 1.4 H (0.6-1.0) mg/dL Est Cr Clr Drug Dosing 39.08 mL/min Estimated GFR (MDRD) 37.2 ml/min Glucose 96 (74-106) mg/dL Calcium 9.2 (8.5-10.1) mg/dL Total Bilirubin 0.4 (0.2-1.0) mg/dL AST 17 (15-37) IU/L ALT 20 (14-63) IU/L Alkaline Phosphatase 81 (46-116) U/L Troponin I < 0.050 (0.000-0.056) ng/mL Total Protein 7.2 (6.4-8.2) g/dL Albumin 2.8 L (3.4-5.0) g/dL Globulin 4.4 H (2.6-4.0) g/dL Albumin/Globulin Ratio 0.6 L (0.9-1.6) Meds: Medications Generic Name Dose Route Start Last Admin Trade Name Freq PRN Reason Stop Dose Admin Sodium Chloride 10 ml 04/03/19 17:36 Saline Flush FLUSH ASDIRECTED PRN Keep Vein Open Sodium Chloride 2.5 ml 04/03/19 17:36 Saline Flush FLUSH ASDIRECTED PRN Keep Vein Open Departure - Departure Time of Disposition: 18:40 Disposition: Home, Self-Care 01 Clinical Impression: Chest pain Qualifiers: Chest pain type: unspecified Qualified Code(s): R07.9 - Chest pain, unspecified - Discharge Information Referrals: PCP,None [Primary Care Provider] - Forms: ED Department Discharge Additional Instructions: The following information is given to patients seen in the emergency department who are being discharged to home. This information is to outline your options for follow-up care. We provide all patients seen in our emergency department with a follow-up referral. The need for follow-up, as well as the timing and circumstances, are variable depending upon the specifics of your emergency department visit. If you don't have a primary care physician on staff, we will provide you with a referral. We always advise you to contact your personal physician following an emergency department visit to inform them of the circumstance of the visit and for follow-up with them and/or the need for any referrals to a consulting specialist. The emergency department will also refer you to a specialist when appropriate. This referral assures that you have the opportunity for follow-up care with a specialist. All of these measure are taken in an effort to provide you with optimal care, which includes your follow-up. Under all circumstances we always encourage you to contact your private physician who remains a resource for coordinating your care. When calling for follow-up care, please make the office aware that this follow-up is from your recent emergency room visit. If for any reason you are refused follow-up, please contact the [facility] Emergency Department at and asked to speak to the emergency department charge nurse. [facility] [address] [place] [address] [facility] [address] [place] [id number] 1. You can alternate ibuprofen and Tylenol as directed for pain and discomfort. 2. Follow-up with your primary care provider and your molding manager as discussed. Return to the ED as needed and as discussed. - My Orders Last 24 Hours: My Active Orders 04/03/19 17:35 UA RFX LEÓN AND CULT IF INDIC [URIN] Stat 04/03/19 17:36 Sodium Chloride 0.9% [Saline Flush] 10 ml FLUSH ASDIRECTED PRN Sodium Chloride 0.9% [Saline Flush] 2.5 ml FLUSH ASDIRECTED PRN Saline Lock Insert [OM.PC] Stat 04/03/19 17:48 EKG 12 Lead [EKG Documentation Completion] [RC] STAT - Assessment/Plan Last 24 Hours: My Active Orders 04/03/19 17:35 UA RFX LEÓN AND CULT IF INDIC [URIN] Stat 04/03/19 17:36 Sodium Chloride 0.9% [Saline Flush] 10 ml FLUSH ASDIRECTED PRN Sodium Chloride 0.9% [Saline Flush] 2.5 ml FLUSH ASDIRECTED PRN Saline Lock Insert [OM.PC] Stat 04/03/19 17:48 EKG 12 Lead [EKG Documentation Completion] [RC] STAT
[2019-04-03 18:11] LABS: BLOOD UREA NITROGEN,BUN 17 mg/dL (7.0-18.0); CARBON DIOXIDE,CO2 30.6 mmol/L (21.0-32.0); CHLORIDE,CL 98 mmol/L (98-107); GLUCOSE RANDOM 96 mg/dL (74-106); POTASSIUM,K 4.2 mmol/L (3.5-5.1); SODIUM,NA 136 mmol/L (136-145)
--- NOTE | 2019-04-03 18:21 | CR ---
Indication: Chest pain. Technique: A single AP portable view of the chest was obtained. Comparison: December 18, 2018. Findings: Heart is size. The lungs are clear. No infiltrate, pleural effusion, or pneumothorax is identified. Impression: No acute cardiopulmonary process. Dictated by Laura Lucero MD @ Apr 03 2019 6:19PM Signed by Dr. Laura Lucero @ Apr 03 2019 6:20PM
[2019-04-03 19:53] VITALS: BP 144/81; PULSE 54
== END 2019-04-03 18:58 | disposition home or self-care (01) ==
LOC: MW.ED 17:31
DX: R07.9 Chest pain, unspecified (principal); I25.2 Old myocardial infarction; I25.10 Atherosclerotic heart disease of native coronary artery without angina pectoris; I10 Essential (primary) hypertension; E78.00 Pure hypercholesterolemia, unspecified; J44.9 Chronic obstructive pulmonary disease, unspecified; F32.9 Major depressive disorder, single episode, unspecified; K21.9 Gastro-esophageal reflux disease without esophagitis; Z79.02 Long term (current) use of antithrombotics/antiplatelets; Z79.899 Other long term (current) drug therapy; Z87.891 Personal history of nicotine dependence; Z88.2 Allergy status to sulfonamides; Z88.5 Allergy status to narcotic agent; Z88.6 Allergy status to analgesic agent; Z95.5 Presence of coronary angioplasty implant and graft
CPT/HCPCS: 36415; 71045; 71045-26; 80053; 84484; 85025; 85610; 93005; 99284; 99285-25

== ENCOUNTER 2019-06-30 21:34 | Emergency (ER) | payer MEDICARE, MEDICAID ==
[2019-06-30] MEDS ORDERED: Sodium Chloride 0.9% 1,000 ML IV SCH (21:45)
--- NOTE | 2019-06-30 21:59 | EDM.PDOC ---
ED HPI GENERAL MEDICAL PROBLEM - General Chief Complaint: Respiratory Problem Stated Complaint: BREATHING PROBLEMS Time Seen by Provider: 06/30/19 21:37 Source of Information: Reports: Patient History Limitations: Reports: No Limitations - History of Present Illness INITIAL COMMENTS - FREE TEXT/NARRATIVE: This 68-year-old patient history of COPD presents to the emergency room short of breath. Patient has been smoking and not using her inhalers Onset: Today Duration: Day(s):, Intermittent Location: Reports: Chest Quality: Reports: Pressure Severity: Moderate Worsens with: Reports: Breathing Associated Symptoms: Reports: Cough, Shortness of Breath Treatments LABOR AND DELIVERY NURSE: Reports: Breathing Treatments, IV/IO chest area Pain Score (Numeric/FACES): 9 - Related Data Allergies Allergy/AdvReac Type Severity Reaction Status Date / Time ibuprofen [From Motrin] Allergy Intermediate Headache Verified 06/30/19 21:37 Sulfa (Sulfonamide Allergy Intermediate Swollen Verified 06/30/19 21:37 Antibiotics) Eyes oxycodone Allergy Confusion/h Verified 06/30/19 21:37 allucinatio ns/depressi on Home Meds: Home Meds Lisinopril 10 mg PO DAILY #30 tablet 02/17/14 [Rx] atenoloL [Atenolol] 50 mg PO DAILY #30 tablet 02/17/14 [Rx] FLUoxetine [PROzac] 20 mg PO DAILY 08/06/16 [History] Nitroglycerin [Nitrostat] 0.4 mg SL Q5M PRN 08/06/16 [History] atorvaSTATin [Lipitor] 10 mg PO BEDTIME 08/06/16 [History] buPROPion [Wellbutrin SR] 300 mg PO DAILY 08/06/16 [History] Omeprazole 40 mg PO BID 10/11/16 [History] Albuterol [Ventolin HFA] 1 - 2 puff INH ASDIRECTED PRN 11/04/17 [History] Clopidogrel Bisulfate [Plavix] 75 mg PO DAILY 11/04/17 [History] Sucralfate 1 gm PO QID 02/02/18 [History] Isosorbide Mononitrate [Isosorbide Mononitrate ER] 120 mg PO DAILY 05/21/18 [ History] Oxybutynin 10 mg PO DAILY 05/21/18 [History] Past Medical History HEENT History: Reports: Impaired Vision Other HEENT History: wears glasses, wears upper and lower dentures, lower denture not with her Cardiovascular History: Reports: CAD, High Cholesterol, Hypertension, [place], SOB on Exertion, Stents Other Cardiovascular History: peripheral arterial disease Respiratory History: Reports: COPD Other Respiratory History: h/o lung cancer couple of years ago Gastrointestinal History: Reports: Colon Polyp, GERD, GI Bleed, Other (See Below ) Genitourinary History: Reports: UTI, Recurrent LEGAL RECOVERY SPECIALIST History: Reports: , Other (See Below) Other LEGAL RECOVERY SPECIALIST History: breast surgery Musculoskeletal History: Reports: Arthritis, Back Pain, Chronic Other Musculoskeletal History: degenerative disc disease Neurological History: Reports: Concussion Psychiatric History: Reports: Addiction, Anxiety, Bipolar, Depression Endocrine/Metabolic History: Reports: Osteoporosis Hematologic History: Reports: Blood Transfusion(s) Oncologic (Cancer) History: Reports: Breast, Lung Dermatologic History: Reports: Eczema, Psoriasis - Infectious Disease History Infectious Disease History: Reports: None - Past Surgical History Head Surgeries/Procedures: Reports: None HEENT Surgical History: Reports: Cataract Surgery, Tonsillectomy Cardiovascular Surgical History: Reports: Coronary Artery Stent, Other (See Below) Other Cardiovascular Surgeries/Procedures: angiogram, femoral arterial stent placements Respiratory Surgical History: Reports: Lung Biopsies Other Respiratory Surgeries/Procedures: right upper lobe 2016 GI Surgical History: Reports: Appendectomy, Colonoscopy, Polypectomy Female Surgical History: Reports: Breast Biopsy, Hysterectomy, Tubal Ligation Other Female Surgeries/Procedures: left breast lumpectomy for breast cancer ( radiation 2006) Oncologic Surgical History: Reports: Biopsy of Breast, Lumpectomy Social & Family History - Family History Family Medical History: Noncontributory - Caffeine Use Caffeine Use: Reports: Coffee Caffeine Use Comment: 2 drinks/day ED ROS GENERAL - Review of Systems Review Of Systems: Comprehensive ROS is negative, except as noted in HPI. Constitutional: Reports: No Symptoms HEENT: Reports: No Symptoms Respiratory: Reports: Shortness of Breath, Wheezing Cardiovascular: Reports: No Symptoms Endocrine: Reports: No Symptoms GI/Abdominal: Reports: No Symptoms : Reports: No Symptoms Musculoskeletal: Reports: No Symptoms Skin: Reports: No Symptoms Neurological: Reports: No Symptoms Psychiatric: Reports: No Symptoms Hematologic/Lymphatic: Reports: No Symptoms Immunologic: Reports: No Symptoms ED EXAM, GENERAL - Physical Exam Exam: See Below Free Text/Narrative:: This 68-year-old female presents with shortness of breath. Patient found to have COPD exacerbation. Exam shows patient's lungs show some rhonchi initially after treatment patient's lungs are cleared she feels much better. Remainder exam is noRmal Exam Limited By: No Limitations General Appearance: Alert, WD/WN, No Apparent Distress Eye Exam: Bilateral Eye: Normal Fundi, Normal Inspection Ear Exam: Bilateral Ear: Auricle Normal, Canal Normal Nose: Normal Inspection, Normal Mucosa, No Blood Throat/Mouth: Normal Inspection, Normal Lips, Normal Oropharynx Head: Atraumatic, Normocephalic Neck: Normal Inspection, Supple, Non-Tender Respiratory/Chest: No Accessory Muscle Use, Rhonchi, Wheezing Cardiovascular: Normal Peripheral Pulses, Regular Rate, Rhythm, No Edema, No JVD , No Murmur GI/Abdominal: Normal Bowel Sounds, Soft, Non-Tender (Female) Exam: Deferred Rectal (Female) Exam: Deferred Back Exam: Normal Inspection, Full Range of Motion Extremities: Normal Inspection, Normal Range of Motion, Non-Tender, No Pedal Edema, Normal Capillary Refill Neurological: Alert, Oriented, CN II-XII Intact, Normal Cognition, Normal Gait, Normal Reflexes, No Motor/Sensory Deficits Psychiatric: Normal Affect, Normal Mood Skin Exam: Warm, Dry, Intact, Normal Color Lymphatic: No Adenopathy Course - Vital Signs Text/Narrative:: Patient underwent treatment with DuoNeb. Patient also given Solu-Medrol 125. Patient states she feels much better and would be discharged home. Smoking counseling was performed on the patient and she agrees to decrease her smoking. Patient will be discharged with a diagnosis COPD exacerbation Last Recorded V/S: Last Vital Signs Temp 96.7 F 06/30/19 21:35 Pulse 69 06/30/19 22:52 Resp 18 06/30/19 22:52 BP 184/92 H 06/30/19 22:52 Pulse Ox 96 06/30/19 22:52 - Orders/Labs/Meds Orders: Active Orders 24 hr Category Date Time Status EKG 12 Lead [EKG Documentation Completion] [RC] STAT Care 06/30/19 21:47 Active Sodium Chloride 0.9% [Normal Saline] 1,000 ml Med 06/30/19 21:45 Active IV ASDIRECTED Medication Orders Sodium Chloride (Normal Saline) 1,000 mls @ 125 mls/hr IV ASDIRECTED STANLEY Last Admin: 06/30/19 22:19 Dose: 125 mls/hr Labs: Laboratory Tests 06/30/19 06/30/19 Range/Units 22:09 22:09 WBC 5.86 (4.0-11.0) K/uL RBC 4.82 (4.30-5.90) M/uL Hgb 13.6 (12.0-16.0) g/dL Hct 41.2 (36.0-46.0) % MCV 85.5 (80.0-98.0) fL MCH 28.2 (27.0-32.0) pg MCHC 33.0 (31.0-37.0) g/dL RDW Std Deviation 49.1 (28.0-62.0) fl RDW Coeff of Oscar 16 H (11.0-15.0) % Plt Count 209 (150-400) K/uL MPV 9.60 (7.40-12.00) fL Neut % (Auto) 47.5 L (48.0-80.0) % Lymph % (Auto) 35.2 (16.0-40.0) % [place] % (Auto) 11.4 (0.0-15.0) % Eos % (Auto) 5.6 (0.0-7.0) % Baso % (Auto) 0.3 (0.0-1.5) % Neut # (Auto) 2.8 (1.4-5.7) K/uL Lymph # (Auto) 2.1 (0.6-2.4) K/uL [place] # (Auto) 0.7 (0.0-0.8) K/uL Eos # (Auto) 0.3 (0.0-0.7) K/uL Baso # (Auto) 0.0 (0.0-0.1) K/uL Nucleated RBC % 0.0 /100WBC Nucleated RBCs # 0 K/uL Sodium 143 (136-145) mmol/L Potassium 3.1 L (3.5-5.1) mmol/L Chloride 105 (98-107) mmol/L Carbon Dioxide 32.2 H (21.0-32.0) mmol/L BUN 10 (7.0-18.0) mg/dL Creatinine 0.9 (0.6-1.0) mg/dL Est Cr Clr Drug Dosing 60.79 mL/min Estimated GFR (MDRD) > 60.0 ml/min Glucose 117 H (74-106) mg/dL Calcium 9.3 (8.5-10.1) mg/dL Total Bilirubin 0.3 (0.2-1.0) mg/dL AST 19 (15-37) IU/L ALT 25 (14-63) IU/L Alkaline Phosphatase 82 (46-116) U/L Troponin I < 0.050 (0.000-0.056) ng/mL Total Protein 6.9 (6.4-8.2) g/dL Albumin 3.5 (3.4-5.0) g/dL Globulin 3.4 (2.6-4.0) g/dL Albumin/Globulin Ratio 1.0 (0.9-1.6) Meds: Medications Generic Name Dose Route Start Last Admin Trade Name Freq PRN Reason Stop Dose Admin Sodium Chloride 1,000 mls @ 125 mls/hr 06/30/19 21:45 06/30/19 22:19 Normal Saline IV 125 mls/hr ASDIRECTED STANLEY Administration Discontinued Medications Generic Name Dose Route Start Last Admin Trade Name Freq PRN Reason Stop Dose Admin Methylprednisolone Sodium Succinate 125 mg 06/30/19 22:00 06/30/19 22:21 Solu-Medrol IV 06/30/19 22:01 125 mg NOW ONE Administration Departure - Departure Time of Disposition: 23:12 Disposition: Home, Self-Care 01 Condition: Good Clinical Impression: COPD (chronic obstructive pulmonary disease) - Discharge Information Instructions: Chronic Obstructive Pulmonary Disease Exacerbation, [id number] Forms: ED Department Discharge Sepsis Event Note - Evaluation Sepsis Screening Result: No Definite Risk - Focused Exam Vital Signs: Vital Signs Temp Pulse Resp BP Pulse Ox 06/30/19 22:52 69 18 184/92 H 96 06/30/19 21:35 96.7 F 79 20 146/83 H 97 Date Exam was Performed: 06/30/19 Time Exam was Performed: 23:11 - My Orders Last 24 Hours: My Active Orders 06/30/19 21:45 Sodium Chloride 0.9% [Normal Saline] 1,000 ml IV ASDIRECTED 06/30/19 21:47 EKG 12 Lead [EKG Documentation Completion] [RC] STAT - Assessment/Plan Last 24 Hours: My Active Orders 06/30/19 21:45 Sodium Chloride 0.9% [Normal Saline] 1,000 ml IV ASDIRECTED 06/30/19 21:47 EKG 12 Lead [EKG Documentation Completion] [RC] STAT
[2019-06-30] MEDS ORDERED: methylPREDNISolone Sodium Succinate 125 MG/2 ML SDV IV ONE (22:00)
[2019-06-30 22:38] LABS: BLOOD UREA NITROGEN,BUN 10 mg/dL (7.0-18.0); CARBON DIOXIDE,CO2 32.2 mmol/L (21.0-32.0); CHLORIDE,CL 105 mmol/L (98-107); GLUCOSE RANDOM 117 mg/dL (74-106); POTASSIUM,K 3.1 mmol/L (3.5-5.1); SODIUM,NA 143 mmol/L (136-145)
--- NOTE | 2019-06-30 22:53 | CR ---
INDICATION: Shortness of breath. COMPARISON: 04/03/2019. FINDINGS/IMPRESSION: No acute pulmonary infiltrates or other acute intrathoracic abnormalities are identified. There is unchanged blunting of the right lateral costophrenic angle consistent with pleural scarring. Heart size is normal. The included bones are unremarkable. Dictated by Evgeny River MD @ 06/30/2019 10:51:47 PM Dictated by: Evgeny River MD @ 06/30/2019 22:51:59 (Electronically Signed)
[2019-07-01 00:16] VITALS: BP 183/116; PULSE 71
== END 2019-06-30 23:36 | disposition home or self-care (01) ==
LOC: MW.ED 21:34
DX: J44.1 Chronic obstructive pulmonary disease with (acute) exacerbation (principal); E78.5 Hyperlipidemia, unspecified; I10 Essential (primary) hypertension; I25.10 Atherosclerotic heart disease of native coronary artery without angina pectoris; I25.2 Old myocardial infarction; K21.9 Gastro-esophageal reflux disease without esophagitis; F32.9 Major depressive disorder, single episode, unspecified; F41.9 Anxiety disorder, unspecified; F17.210 Nicotine dependence, cigarettes, uncomplicated; Z88.2 Allergy status to sulfonamides; Z88.6 Allergy status to analgesic agent; Z88.5 Allergy status to narcotic agent; Z95.5 Presence of coronary angioplasty implant and graft; Z79.899 Other long term (current) drug therapy
CPT/HCPCS: 36415; 71045; 80053; 84484; 85025; 93005; 96361; 96374; 99285; J2930; J7030; 99283

== ENCOUNTER 2021-01-05 19:00 | Emergency (ER) | payer MEDICARE, MEDICAID ==
[2021-01-05] MEDS ORDERED: Sodium Chloride 0.9% 2.5 ML Syringe FLUSH PRN (19:21)
[2021-01-05] MEDS ORDERED: Ondansetron 4 MG/2 ML SDV IVPUSH ONE (19:21)
[2021-01-05] MEDS ORDERED: Sodium Chloride 0.9% 10 ML Syringe FLUSH PRN (19:21)
[2021-01-05] MEDS ORDERED: Morphine 4 MG/ML Syringe IVPUSH ONE (19:21)
--- NOTE | 2021-01-05 20:08 | CR ---
HISTORY: Chest pain and shortness of breath. COMPARISON: 06/30/2019 FINDINGS: A portable erect AP view of the chest was obtained at 1932 hours. There is stable mild blunting of the right lateral lung base, consistent with scarring from previous inflammatory disease. The lungs otherwise remain clear. No focal or diffuse infiltrates are present. The heart remains normal in size. The mediastinum is normal in appearance. The osseous structures are normal in appearance for the patient`s age. IMPRESSION: No active disease. Stable blunting of the right costophrenic angle from previous inflammatory disease. Dictated by Simba Courtney MD @ 01/05/2021 8:06:[address] Simba Courtney @ Jan 05 2021 8:06PM
[2021-01-05 20:18] LABS: BLOOD UREA NITROGEN,BUN 13 mg/dL (7.0-18.0); CARBON DIOXIDE,CO2 27.6 mmol/L (21.0-32.0); CHLORIDE,CL 107 mmol/L (98-107); GLUCOSE RANDOM 105 mg/dL (74-106); LIPASE 88 U/L (73-393); POTASSIUM,K 4.3 mmol/L (3.5-5.1); SODIUM,NA 143 mmol/L (136-145)
[2021-01-05] MEDS ORDERED: Iopamidol 755 Mg/ML 100 ML Bottle IVPUSH STA (20:36)
--- NOTE | 2021-01-05 21:43 | EDM.PDOC ---
ED HPI GENERAL MEDICAL PROBLEM - General Chief Complaint: Chest Pain Stated Complaint: CARDIAC ARITHMIA Time Seen by Provider: 01/05/21 19:12 - History of Present Illness INITIAL COMMENTS - FREE TEXT/NARRATIVE: HISTORY AND PHYSICAL: History of present illness: This is a 70-year-old female with a history significant for hypertension, peripheral vascular disease requiring stents to her lower extremities, COPD, history of tobacco use, history of lung cancer requiring a lung resection, no history of diabetes, liver, kidney, CAD, strokes in the past, who presents ER today complaining of left-sided chest pressure that started earlier today. Patient reports that pain has been intermittent in nature. Patient reports that she has had some associated shortness of breath with it and pain to her left scapula but no associated nausea or diaphoresis. Patient reports that she has had no exertional component with no complaints of relief or exacerbation with rest or exertion. Patient reports no change in discomfort with deep inspiration or cough. Patient reports no change in pain with meals or liquids. Patient reports that she did try some antacids at home without any relief in her discomfort. Patient reports that she has not had any further evaluation in the recent past for cardiac chest pain. Patient denies any recent fevers, shakes, chills, nausea, vomiting, diarrhea, dysuria, frequency, urgency, abdominal pain. Review of systems: As per history of present illness and below otherwise all systems reviewed and negative. Past medical history: As per history of present illness and as reviewed below otherwise noncontributory. Surgical history: As per history of present illness and as reviewed below otherwise noncontributory. Social history: No reported history of drug abuse. Family history: As per history of present illness and as reviewed below otherwise noncontributory. Physical exam: This patient was seen and evaluated during the 2019 SARS-CoV-2 novel coronavirus pandemic period. Community viral transmission is ongoing at time of this encounter and the emergency department is operating under pandemic response procedures. Constitutional: Patient is oriented to person, place, and time. Appears well- developed and well-nourished. No distress. HEENT: Moist mucous membranes Head: Normocephalic and atraumatic Eyes: Right eye exhibits no discharge. Left eye exhibits no discharge. No scleral icterus Neck: Normal range of motion. No tracheal deviation present. Cardiovascular: Normal rate and regular rhythm. Patient without reproducible tenderness palpation to her anterior chest wall Pulmonary: Effort normal, no respiratory distress. Abd: Soft, nondistended, no rebound/guarding, no psoas or obturator signs, no tenderness at Mcberney's point, no Vance's sign. Pt does not present with an exam that would be consistent with an acute surgical abdomen at this time. Nontender to palpation Musculoskeletal: Normal range of motion Neurologic: Alert and oriented to person, place and time. Skin: [place], warm and dry. Psychiatric: Normal mood and affect. Behavior is normal. Judgment and thought content normal. Nursing note and vital signs have been reviewed Diagnostics: CBC, CMP, troponin negative. Patient's D-dimer is elevated. Patient has a unremarkable unchanged chest x-ray from prior. Troponin on presentation as well as a 2-hour troponin are both negative for ischemia Chest Xray: Normal cardiac silhouette No infiltrates or effusions identified. No PTX No evidence of acute bony fracture. As interpreted by ER MD: Katherine EKG: As interpreted by ER physician: Katherine: Nonspecific ST-T wave abnormalities Normal axis No evidence of ST elevation LA Normal sinus rhythm heart rate of 60 CTA of chest ordered secondary to elevated D-dimer. CTA of chest: Therapeutics: [] Assessment and plan: This is a 70-year-old with a history significant for peripheral vascular disease requiring arterial stents, hypertension, lung cancer who presents to the ER to day with chest pain concerning for cardiac disease. Patient's ER work-up is been unremarkable in the ER with a normal troponin, normal EKG, normal x-ray. Patient has been given a CTA of her chest secondary to an elevated D-dimer. I discussed the case with Dr. Bermudez who agrees to admit patient to observation status for further evaluation of her chest pain. CTA of chest was negative for PE. I have had a long discussion with the patient and her daughter regarding her test results and my concerns for possible acute coronary syndrome and other pathology that might be causing her chest pain and discomfort. Patient is adamant about not being admitted to the hospital because she has 2 puppies at home that she needs to take care of. Patient's daughter is at her bedside is offered to care for the puppies but the patient is refusing. Patient understands the risks of /myocardial infarction, strokes and other bad outcomes that can result from signing out AGAINST MEDICAL ADVICE. Patient is excepted these risks. I will respect the patient's autonomy and allow her to sign out AGAINST MEDICAL ADVICE with the understanding that she can return if she should change her mind or develops any new or concerning symptoms. Definitive disposition and diagnosis as appropriate pending reevaluation and review of above. Left Chest Pain Score (Numeric/FACES): 5 - Related Data Allergies Allergy/AdvReac Type Severity Reaction Status Date / Time ibuprofen [From Motrin] Allergy Intermediate Headache Verified 01/05/21 19:49 Sulfa (Sulfonamide Allergy Intermediate Swollen Verified 01/05/21 19:49 Antibiotics) Eyes oxycodone Allergy Confusion/h Verified 01/05/21 19:49 allucinatio ns/depressi on Home Meds: Home Meds Lisinopril 10 mg PO DAILY #30 tablet 02/17/14 [Rx] atenoloL [Atenolol] 50 mg PO DAILY #30 tablet 02/17/14 [Rx] FLUoxetine [PROzac] 20 mg PO DAILY 08/06/16 [History] Nitroglycerin [Nitrostat] 0.4 mg SL Q5M PRN 08/06/16 [History] atorvaSTATin [Lipitor] 10 mg PO BEDTIME 08/06/16 [History] buPROPion [Wellbutrin SR] 300 mg PO DAILY 08/06/16 [History] Omeprazole 40 mg PO BID 10/11/16 [History] Albuterol [Ventolin HFA] 1 - 2 puff INH ASDIRECTED PRN 11/04/17 [History] Clopidogrel Bisulfate [Plavix] 75 mg PO DAILY 11/04/17 [History] Sucralfate 1 gm PO QID 02/02/18 [History] Isosorbide Mononitrate [Isosorbide Mononitrate ER] 120 mg PO DAILY 05/21/18 [History] Oxybutynin 10 mg PO DAILY 05/21/18 [History] Albuterol [Ventolin HFA] 1 puff INH Q4H #1 inhaler 06/30/19 [Rx] predniSONE 40 mg PO .Daily Taper 5 Days #5 tab 06/30/19 [Rx] Past Medical History HEENT History: Reports: Impaired Vision Other HEENT History: wears glasses, wears upper and lower dentures, lower denture not with her Cardiovascular History: Reports: CAD, High Cholesterol, Hypertension, LA, SOB on Exertion, Stents Other Cardiovascular History: peripheral arterial disease Respiratory History: Reports: COPD Other Respiratory History: h/o lung cancer couple of years ago Gastrointestinal History: Reports: Colon Polyp, GERD, GI Bleed, Other (See Below) Genitourinary History: Reports: UTI, Recurrent 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: Reports: , Other (See Below) Other 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: breast surgery Musculoskeletal History: Reports: Arthritis, Back Pain, Chronic Other Musculoskeletal History: degenerative disc disease Neurological History: Reports: Concussion Psychiatric History: Reports: Addiction, Anxiety, Bipolar, Depression Endocrine/Metabolic History: Reports: Osteoporosis Insulin Pump Model and Director Of Planning: None Hematologic History: Reports: Blood Transfusion(s) Immunologic History: Reports: None Oncologic (Cancer) History: Reports: Breast, Lung Dermatologic History: Reports: Eczema, Psoriasis - Infectious Disease History Infectious Disease History: Reports: None - Past Surgical History Head Surgeries/Procedures: Reports: None HEENT Surgical History: Reports: Cataract Surgery, Tonsillectomy Cardiovascular Surgical History: Reports: Coronary Artery Stent, Other (See Below) Other Cardiovascular Surgeries/Procedures: angiogram, femoral arterial stent placements Respiratory Surgical History: Reports: Lung Biopsies Other Respiratory Surgeries/Procedures: right upper lobe 2016 GI Surgical History: Reports: Appendectomy, Colonoscopy, Polypectomy Female Surgical History: Reports: Breast Biopsy, Hysterectomy, Tubal Ligation Other Female Surgeries/Procedures: left breast lumpectomy for breast cancer (radiation 2006) Endocrine Surgical History: Reports: None Neurological Surgical History: Reports: None Oncologic Surgical History: Reports: Biopsy of Breast, Lumpectomy Social & Family History - Family History Family Medical History: No Pertinent Family History - Tobacco Use Tobacco Use Status *Q: Current Every Day Tobacco User Years of Tobacco use: 50 Packs/Tins Daily: 1 - Caffeine Use Caffeine Use: Reports: None Caffeine Use Comment: 2 drinks/day - Recreational Drug Use Recreational Drug Use: No ED ROS GENERAL - Review of Systems Review Of Systems: See Below ED EXAM, GENERAL - Physical Exam Exam: See Below Course - Vital Signs Last Recorded V/S: Last Vital Signs Temp 98.6 F 01/05/21 19:03 Pulse 93 01/05/21 19:03 Resp 18 01/05/21 19:03 BP 110/64 01/05/21 19:03 Pulse Ox 94 L 01/05/21 19:03 - Orders/Labs/Meds Orders: Active Orders 24 hr Category Date Time Status EKG Documentation Completion [RC] AM Care 01/05/21 19:21 Active Sodium Chloride 0.9% [Saline Flush] Med 01/05/21 19:21 Active 10 ml FLUSH ASDIRECTED PRN Sodium Chloride 0.9% [Saline Flush] Med 01/05/21 19:21 Active 2.5 ml FLUSH ASDIRECTED PRN Saline Lock Insert [OM.PC] Stat Oth 01/05/21 19:21 Ordered Medication Orders Sodium Chloride (Sodium Chloride 0.9% 10 Ml Syringe) 10 ml FLUSH ASDIRECTED PRN PRN Reason: Keep Vein Open Sodium Chloride (Sodium Chloride 0.9% 2.5 Ml Syringe) 2.5 ml FLUSH ASDIRECTED PRN PRN Reason: Keep Vein Open Labs: Laboratory Tests 01/05/21 01/05/21 01/05/21 Range/Units 19:50 19:50 19:50 WBC 8.29 (4.0-11.0) K/uL RBC 5.06 (4.30-5.90) M/uL Hgb 14.6 (12.0-16.0) g/dL Hct 44.3 (36.0-46.0) % MCV 87.5 (80.0-98.0) fL MCH 28.9 (27.0-32.0) pg MCHC 33.0 (31.0-37.0) g/dL RDW Std Deviation 47.9 (28.0-62.0) fl RDW Coeff of Oscar 15 (11.0-15.0) % Plt Count 227 (150-400) K/uL MPV 10.40 (7.40-12.00) fL Neut % (Auto) 60.2 (48.0-80.0) % Lymph % (Auto) 29.3 (16.0-40.0) % [place] % (Auto) 7.1 (0.0-15.0) % Eos % (Auto) 3.0 (0.0-7.0) % Baso % (Auto) 0.4 (0.0-1.5) % Neut # (Auto) 5.0 (1.4-5.7) K/uL Lymph # (Auto) 2.4 (0.6-2.4) K/uL [place] # (Auto) 0.6 (0.0-0.8) K/uL Eos # (Auto) 0.3 (0.0-0.7) K/uL Baso # (Auto) 0.0 (0.0-0.1) K/uL Nucleated RBC % 0.0 /100WBC Nucleated RBCs # 0 K/uL D-Dimer, Quantitative 1.43 H (0.0-0.50) mg/L FEU Sodium 143 (136-145) mmol/L Potassium 4.3 (3.5-5.1) mmol/L Chloride 107 (98-107) mmol/L Carbon Dioxide 27.6 (21.0-32.0) mmol/L BUN 13 (7.0-18.0) mg/dL Creatinine 1.0 (0.6-1.0) mg/dL Est Cr Clr Drug Dosing 53.14 mL/min Estimated GFR (MDRD) 54.5 ml/min Glucose 105 (74-106) mg/dL Calcium 8.7 (8.5-10.1) mg/dL Magnesium 1.9 (1.8-2.4) mg/dL Total Bilirubin 0.3 (0.2-1.0) mg/dL AST 16 (15-37) IU/L ALT 8 L (14-63) IU/L Alkaline Phosphatase 94 (46-116) U/L Troponin I < 0.050 (0.000-0.056) ng/mL Total Protein 6.8 (6.4-8.2) g/dL Albumin 3.7 (3.4-5.0) g/dL Globulin 3.1 (2.6-4.0) g/dL Albumin/Globulin Ratio 1.2 (0.9-1.6) Lipase 88 (73-393) U/L SARS-CoV-2 RNA (VAN) (NEGATIVE) 01/05/21 01/05/21 Range/Units 19:52 21:53 WBC (4.0-11.0) K/uL RBC (4.30-5.90) M/uL Hgb (12.0-16.0) g/dL Hct (36.0-46.0) % MCV (80.0-98.0) fL MCH (27.0-32.0) pg MCHC (31.0-37.0) g/dL RDW Std Deviation (28.0-62.0) fl RDW Coeff of Oscar (11.0-15.0) % Plt Count (150-400) K/uL MPV (7.40-12.00) fL Neut % (Auto) (48.0-80.0) % Lymph % (Auto) (16.0-40.0) % [place] % (Auto) (0.0-15.0) % Eos % (Auto) (0.0-7.0) % Baso % (Auto) (0.0-1.5) % Neut # (Auto) (1.4-5.7) K/uL Lymph # (Auto) (0.6-2.4) K/uL [place] # (Auto) (0.0-0.8) K/uL Eos # (Auto) (0.0-0.7) K/uL Baso # (Auto) (0.0-0.1) K/uL Nucleated RBC % /100WBC Nucleated RBCs # K/uL D-Dimer, Quantitative (0.0-0.50) mg/L FEU Sodium (136-145) mmol/L Potassium (3.5-5.1) mmol/L Chloride (98-107) mmol/L Carbon Dioxide (21.0-32.0) mmol/L BUN (7.0-18.0) mg/dL Creatinine (0.6-1.0) mg/dL Est Cr Clr Drug Dosing mL/min Estimated GFR (MDRD) ml/min Glucose (74-106) mg/dL Calcium (8.5-10.1) mg/dL Magnesium (1.8-2.4) mg/dL Total Bilirubin (0.2-1.0) mg/dL AST (15-37) IU/L ALT (14-63) IU/L Alkaline Phosphatase (46-116) U/L Troponin I < 0.050 (0.000-0.056) ng/mL Total Protein (6.4-8.2) g/dL Albumin (3.4-5.0) g/dL Globulin (2.6-4.0) g/dL Albumin/Globulin Ratio (0.9-1.6) Lipase (73-393) U/L SARS-CoV-2 RNA (VAN) NEGATIVE (NEGATIVE) Meds: Medications Generic Name Dose Route Start Last Admin Trade Name Jovita PRN Reason Stop Dose Admin Sodium Chloride 10 ml 01/05/21 19:21 Sodium Chloride 0.9% 10 Ml Syringe FLUSH ASDIRECTED PRN Keep Vein Open Sodium Chloride 2.5 ml 01/05/21 19:21 Sodium Chloride 0.9% 2.5 Ml Syringe FLUSH ASDIRECTED PRN Keep Vein Open Discontinued Medications Generic Name Dose Route Start Last Admin Trade Name Jovita PRN Reason Stop Dose Admin Iopamidol 75 ml 01/05/21 20:36 Iopamidol 755 Mg/Ml 100 Ml Bottle IVPUSH 01/05/21 20:37 ONETIME STA Morphine Sulfate 4 mg 01/05/21 19:21 01/05/21 19:54 Morphine 4 Mg/Ml Syringe IVPUSH 01/05/21 19:22 4 mg ONETIME ONE Administration Ondansetron HCl 4 mg 01/05/21 19:21 01/05/21 19:54 Ondansetron 4 Mg/2 Ml Sdv IVPUSH 01/05/21 19:22 4 mg ONETIME ONE Administration Departure - Departure Time of Disposition: 23:04 Disposition: Against Medical Advice 07 Condition: Fair Clinical Impression: Acute coronary syndrome, Chest pain - Discharge Information Instructions: Nonspecific Chest Pain, Adult, Acute Coronary Syndrome Referrals: PCP,None [Primary Care Provider] - Forms: ED Department Discharge Additional Instructions: You were seen and evaluated in the ER today secondary to pain that you are experiencing your chest. Our work-up in ER today has not revealed any significant source for the pain that you are experiencing however the work-up in the emergency department is extremely limited to rule out myocardial infarctions and other disease states that can be life-threatening. As we discussed, we recommended that you get admitted to the hospital so they can further evaluate you throughout the course of the evening and night. As you understand, by signing out AGAINST MEDICAL ADVICE there is a risk that you can potentially have a heart attack that can result in and other disabilities. Please return to the ER at any time if you should change her mind about staying in the hospital or if you develop any new or concerning symptoms. Please call your family physician in the morning for reevaluation. The following information is given to patients seen in the emergency department who are being discharged to home. This information is to outline your options for follow-up care. We provide all patients seen in our emergency department with a follow-up referral. The need for follow-up, as well as the timing and circumstances, are variable depending upon the specifics of your emergency department visit. If you don't have a primary care physician on staff, we will provide you with a referral. We always advise you to contact your personal physician following an emergency department visit to inform them of the circumstance of the visit and for follow-up with them and/or the need for any referrals to a consulting specialist. The emergency department will also refer you to a specialist when appropriate. This referral assures that you have the opportunity for follow-up care with a specialist. All of these measure are taken in an effort to provide you with optimal care, which includes your follow-up. Under all circumstances we always encourage you to contact your private physician who remains a resource for coordinating your care. When calling for follow-up care, please make the office aware that this follow-up is from your recent emergency room visit. If for any reason you are refused follow-up, please contact the [facility] Emergency Department at and asked to speak to the emergency department charge nurse. [facility] [address] [place] [id number] [address] Sepsis Event Note (ED) - Evaluation Sepsis Screening Result: No Definite Risk - Focused Exam Vital Signs: Vital Signs Temp Pulse Resp BP Pulse Ox 01/05/21 19:03 98.6 F 93 18 110/64 94 L - My Orders Last 24 Hours: My Active Orders 01/05/21 19:21 EKG Documentation Completion [RC] AM Sodium Chloride 0.9% [Saline Flush] 10 ml FLUSH ASDIRECTED PRN Sodium Chloride 0.9% [Saline Flush] 2.5 ml FLUSH ASDIRECTED PRN Saline Lock Insert [OM.PC] Stat - Assessment/Plan Last 24 Hours: My Active Orders 01/05/21 19:21 EKG Documentation Completion [RC] AM Sodium Chloride 0.9% [Saline Flush] 10 ml FLUSH ASDIRECTED PRN Sodium Chloride 0.9% [Saline Flush] 2.5 ml FLUSH ASDIRECTED PRN Saline Lock Insert [OM.PC] Stat
--- NOTE | 2021-01-05 22:51 | CT ---
Indication: Shortness of breath Technique: Contrast enhanced CT PE with 100 mL Isovue Comparison: No comparison Findings: Normal caliber thoracic aorta. Normal caliber thoracic aorta. Mildly prominent mediastinal nodes. No pulmonary emboli. Heart size normal no pericardial effusion. Postoperative changes right upper lobectomy. 0.9 cm irregular ground-glass nodule peripheral left upper lobe series 402, image 82. 6 millimeter left upper lobe pulmonary nodule series 402, image 92. Small right effusion. Basilar atelectasis. Basilar bronchial wall thickening. Emphysema. 5 millimeter right lower lobe pulmonary nodule on series 402, image 9 9. 4 millimeter nodule right lower lobe series 2, image 105 No suspicious bony lesions. Impression: 1. No pulmonary emboli. 2. Right upper lobectomy. A few scattered pulmonary nodules and 9 millimeter ground-glass left upper lobe nodule. Follow-up recommended per Fleischner society guidelines. 3. Small right effusion. 4. Emphysema. Please note that all CT scans at this facility use dose modulation, iterative reconstruction, and/or weight-based dosing when appropriate to reduce radiation dose to as low as reasonably achievable. Dictated by Malia Larson MD @ 01/05/2021 10:48:[address] Malia Larson @ Jan 05 2021 10:48PM
[2021-01-05 23:22] VITALS: BP 121/60; PULSE 49
== END 2021-01-05 23:21 | disposition left against medical advice (07) ==
LOC: MW.ED 19:00
DX: I24.9 Acute ischemic heart disease, unspecified (principal); I25.10 Atherosclerotic heart disease of native coronary artery without angina pectoris; E78.00 Pure hypercholesterolemia, unspecified; I10 Essential (primary) hypertension; I25.2 Old myocardial infarction; J44.9 Chronic obstructive pulmonary disease, unspecified; K21.9 Gastro-esophageal reflux disease without esophagitis; Z79.899 Other long term (current) drug therapy; Z79.02 Long term (current) use of antithrombotics/antiplatelets; Z88.5 Allergy status to narcotic agent; Z88.2 Allergy status to sulfonamides; Z72.0 Tobacco use; Z20.822 Contact with and (suspected) exposure to COVID-19; Z95.5 Presence of coronary angioplasty implant and graft
CPT/HCPCS: 36415; 71045; 71275; 80053; 83690; 83735; 84484; 85025; 85379; 96374; 96375; 99285; J2270; J2405; U0002; 99283; Q9967

== ENCOUNTER 2021-01-18 21:16 | Emergency (ER) | payer MEDICARE, MEDICAID ==
[2021-01-18] MEDS ORDERED: Sodium Chloride 0.9% 10 ML Syringe FLUSH PRN (23:32)
[2021-01-18] MEDS ORDERED: Sodium Chloride 0.9% 2.5 ML Syringe FLUSH PRN (23:32)
[2021-01-18] MEDS ORDERED: Morphine 4 MG/ML Syringe IVPUSH ONE (23:34)
--- NOTE | 2021-01-18 23:42 | EDM.PDOC ---
ED HPI GENERAL MEDICAL PROBLEM - General Chief Complaint: Back Pain or Injury Stated Complaint: BACK PAIN FOR 3 DAYS, CAN HARDLY WALK Time Seen by Provider: 01/18/21 23:15 Source of Information: Reports: Patient - History of Present Illness INITIAL COMMENTS - FREE TEXT/NARRATIVE: 70-year-old female presents to the emergency department complaining of left lower back pain for about 3 days in duration. Patient denies any fall or direct injury to the area. She states she has a history of back pain but nothing like this. Patient has a history of remote breast and lung cancer but this is not active. Patient has no bowel or bladder dysfunction or leg weakness. Patient denies any pain with urination. Patient does state yesterday she noticed some blood in her urine for the first time. No history of kidney stones. Patient denies any fevers cough or shortness of breath or respiratory complaints. Pain is moderate without exacerbating or alleviating factors Left Posterior Back Pain Score (Numeric/FACES): 8 - Related Data Allergies Allergy/AdvReac Type Severity Reaction Status Date / Time ibuprofen [From Motrin] Allergy Intermediate Headache Verified 01/05/21 19:49 Sulfa (Sulfonamide Allergy Intermediate Swollen Verified 01/05/21 19:49 Antibiotics) Eyes oxycodone Allergy Confusion/h Verified 01/05/21 19:49 allucinatio ns/depressi on Home Meds: Home Meds Lisinopril 10 mg PO DAILY #30 tablet 02/17/14 [Rx] atenoloL [Atenolol] 50 mg PO DAILY #30 tablet 02/17/14 [Rx] FLUoxetine [PROzac] 20 mg PO DAILY 08/06/16 [History] Nitroglycerin [Nitrostat] 0.4 mg SL Q5M PRN 08/06/16 [History] atorvaSTATin [Lipitor] 10 mg PO BEDTIME 08/06/16 [History] buPROPion [Wellbutrin SR] 300 mg PO DAILY 08/06/16 [History] Omeprazole 40 mg PO BID 10/11/16 [History] Albuterol [Ventolin HFA] 1 - 2 puff INH ASDIRECTED PRN 11/04/17 [History] Clopidogrel Bisulfate [Plavix] 75 mg PO DAILY 11/04/17 [History] Sucralfate 1 gm PO QID 02/02/18 [History] Isosorbide Mononitrate [Isosorbide Mononitrate ER] 120 mg PO DAILY 05/21/18 [History] Oxybutynin 10 mg PO DAILY 05/21/18 [History] Albuterol [Ventolin HFA] 1 puff INH Q4H #1 inhaler 06/30/19 [Rx] predniSONE 40 mg PO .Daily Taper 5 Days #5 tab 06/30/19 [Rx] Past Medical History HEENT History: Reports: Impaired Vision Other HEENT History: wears glasses, wears upper and lower dentures, lower denture not with her Cardiovascular History: Reports: CAD, High Cholesterol, Hypertension, SD, SOB on Exertion, Stents Other Cardiovascular History: peripheral arterial disease Respiratory History: Reports: COPD Other Respiratory History: h/o lung cancer couple of years ago Gastrointestinal History: Reports: Colon Polyp, GERD, GI Bleed, Other (See Below) Genitourinary History: Reports: UTI, Recurrent CLINICAL OPERATIONS MANAGER History: Reports: , Other (See Below) Other CLINICAL OPERATIONS MANAGER History: breast surgery Musculoskeletal History: Reports: Arthritis, Back Pain, Chronic Other Musculoskeletal History: degenerative disc disease Neurological History: Reports: Concussion Psychiatric History: Reports: Addiction, Anxiety, Bipolar, Depression Endocrine/Metabolic History: Reports: Osteoporosis 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 Pump Model and Manager Business: None Hematologic History: Reports: Blood Transfusion(s) Immunologic History: Reports: None Oncologic (Cancer) History: Reports: Breast, Lung Dermatologic History: Reports: Eczema, Psoriasis - Infectious Disease History Infectious Disease History: Reports: None - Past Surgical History Head Surgeries/Procedures: Reports: None HEENT Surgical History: Reports: Cataract Surgery, Tonsillectomy Cardiovascular Surgical History: Reports: Coronary Artery Stent, Other (See Below) Other Cardiovascular Surgeries/Procedures: angiogram, femoral arterial stent placements Respiratory Surgical History: Reports: Lung Biopsies Other Respiratory Surgeries/Procedures: right upper lobe 2016 GI Surgical History: Reports: Appendectomy, Colonoscopy, Polypectomy Female Surgical History: Reports: Breast Biopsy, Hysterectomy, Tubal Ligation Other Female Surgeries/Procedures: left breast lumpectomy for breast cancer (radiation 2006) Endocrine Surgical History: Reports: None Neurological Surgical History: Reports: None Oncologic Surgical History: Reports: Biopsy of Breast, Lumpectomy Social & Family History - Family History Family Medical History: No Pertinent Family History - Tobacco Use Tobacco Use Status *Q: Current Every Day Tobacco User Years of Tobacco use: 40 Packs/Tins Daily: 0.5 - Caffeine Use Caffeine Use: Reports: None Caffeine Use Comment: 2 drinks/day - Recreational Drug Use Recreational Drug Use: No ED ROS GENERAL - Review of Systems Review Of Systems: See Below Constitutional: Denies: Fever, Chills Respiratory: Denies: Shortness of Breath, Cough Cardiovascular: Denies: Chest Pain GI/Abdominal: Reports: Abdominal Pain. Denies: Vomiting : Reports: Flank Pain. Denies: Dysuria Musculoskeletal: Reports: Back Pain Skin: Denies: Rash Neurological: Denies: Numbness, Paresthesia ED EXAM, GENERAL - Physical Exam Exam: See Below Free Text/Narrative:: CONSTITUTIONAL: well appearing in no acute distress SKIN: Warm, dry, and intact without rash HENT: Normocephalic, atraumatic, PULMONARY: clear to ausculation bilaterally. No rales, rhonchi, wheezing CARDIOVASCULAR: regular rate, No murmur, rubs, or gallops GASTROINTESTINAL: soft, diffuse mild tenderness. There is no specific epigastric tenderness or pulsatile abdominal mass that is tender NEUROLOGIC: normal speech, II-XII intact. light touch/5/5 power equal and symmetric in upper and lower extremities without deficit MUSCULOSKELETAL: no gross deformities, atraumatic. No direct bony tenderness. PSYCHIATRIC: normal mood and affect Course - Vital Signs Text/Narrative:: Differential diagnosis: Osteoarthritis, radiculopathy, musculoskeletal pain, kidney stone, pyelonephritis, AAA, diverticulitis, lumbar metastases, other Patient presents to the emergency department complaining of left lower back pain. The patient is imaging studies do not show any overt cause of the patient's back pain. There are some arthritic changes. There is no marked blood in the urine to suggest kidney stone. There is no evidence of pyelonephritis. The patient has a very marginal infra renal aortic aneurysmal dilatation that is barely just above normal but the old scan was compared to 2018. There is no specific tenderness to exam on this area and I do not think this represents asymptomatic AAA as a cause of her pain primarily. This certainly, however, should be followed up on. 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 Finally there is lack of flow in the left iliac stent but there is evidence of a patent femorofemoral BiPAP peer clinically the patient has a warm well-perfused foot and we are able to get dopplerable pulses, no sensorimotor dysfunction in the affected left leg. Patient is not having pain to the leg. Patient does have back pain intermittently at baseline although this was a little bit more as per the patient. At this immediate time I do not see any emergent indication for intervention, transfer, or hospitalization. Copies of the patient's CT scan were given to her and these were reviewed with her. Patient be sent home with her results. Patient is instructed to follow-up with her primary care doctor with these results and also follow-up with her vascular surgeon. Otherwise supportive care with return precautions and PCP follow-up. Last Recorded V/S: Last Vital Signs Temp 37.1 C 01/18/21 22:58 Pulse 63 01/18/21 22:58 Resp 18 01/18/21 22:58 BP 115/61 01/18/21 22:58 Pulse Ox 95 01/18/21 22:58 - Orders/Labs/Meds Orders: Active Orders 24 hr Category Date Time Status CULTURE URINE [MREF] Stat Lab 01/18/21 23:20 Received Sodium Chloride 0.9% [Saline Flush] Med 01/18/21 23:32 Active 10 ml FLUSH ASDIRECTED PRN Sodium Chloride 0.9% [Saline Flush] Med 01/18/21 23:32 Active 2.5 ml FLUSH ASDIRECTED PRN Saline Lock Insert [OM.PC] Stat Oth 01/18/21 23:32 Ordered Medication Orders Sodium Chloride (Sodium Chloride 0.9% 10 Ml Syringe) 10 ml FLUSH ASDIRECTED PRN PRN Reason: Keep Vein Open Sodium Chloride (Sodium Chloride 0.9% 2.5 Ml Syringe) 2.5 ml FLUSH ASDIRECTED PRN PRN Reason: Keep Vein Open Labs: Laboratory Tests 01/18/21 01/19/21 01/19/21 Range/Units 23:20 00:00 00:00 WBC 9.97 (4.0-11.0) K/uL RBC 5.03 (4.30-5.90) M/uL Hgb 14.4 (12.0-16.0) g/dL Hct 43.4 (36.0-46.0) % MCV 86.3 (80.0-98.0) fL MCH 28.6 (27.0-32.0) pg MCHC 33.2 (31.0-37.0) g/dL RDW Std Deviation 47.2 (28.0-62.0) fl RDW Coeff of [place] 15 (11.0-15.0) % Plt Count 299 (150-400) K/uL MPV 11.20 (7.40-12.00) fL Neut % (Auto) 71.3 (48.0-80.0) % Lymph % (Auto) 17.9 (16.0-40.0) % [place] % (Auto) 8.6 (0.0-15.0) % Eos % (Auto) 2.0 (0.0-7.0) % Baso % (Auto) 0.2 (0.0-1.5) % Neut # (Auto) 7.1 H (1.4-5.7) K/uL Lymph # (Auto) 1.8 (0.6-2.4) K/uL [place] # (Auto) 0.9 H (0.0-0.8) K/uL Eos # (Auto) 0.2 (0.0-0.7) K/uL Baso # (Auto) 0.0 (0.0-0.1) K/uL Nucleated RBC % 0.0 /100WBC Nucleated RBCs # 0 K/uL INR Sodium 141 (136-145) mmol/L Potassium 3.2 L (3.5-5.1) mmol/L Chloride 102 (98-107) mmol/L Carbon Dioxide 30.7 (21.0-32.0) mmol/L BUN 11 (7.0-18.0) mg/dL Creatinine 1.0 (0.6-1.0) mg/dL Est Cr Clr Drug Dosing 53.14 mL/min Estimated GFR (MDRD) 54.5 ml/min Glucose 99 (74-106) mg/dL Calcium 8.6 (8.5-10.1) mg/dL Total Bilirubin 0.6 (0.2-1.0) mg/dL AST 19 (15-37) IU/L ALT 13 L (14-63) IU/L Alkaline Phosphatase 72 (46-116) U/L Total Protein 6.7 (6.4-8.2) g/dL Albumin 3.5 (3.4-5.0) g/dL Globulin 3.2 (2.6-4.0) g/dL Albumin/Globulin Ratio 1.1 (0.9-1.6) Lipase 34 L (73-393) U/L Urine Color YELLOW Urine Appearance CLEAR Urine pH 6.0 (5.0-8.0) Ur Specific [place] 1.020 (1.001-1.035) Urine Protein NEGATIVE (NEGATIVE) mg/dL Urine Glucose (UA) NEGATIVE (NEGATIVE) mg/dL Urine Ketones NEGATIVE (NEGATIVE) mg/dL Urine Occult Blood NEGATIVE (NEGATIVE) Urine Nitrite NEGATIVE (NEGATIVE) Urine Bilirubin NEGATIVE (NEGATIVE) Urine Urobilinogen 1.0 (<2.0) EU/dL Ur Leukocyte Esterase SMALL H (NEGATIVE) Urine RBC 0-1 (0-2/HPF) Urine WBC 3-4 (0-5/HPF) Ur Epithelial Cells FEW (NONE-FEW) Amorphous Sediment FEW (NEGATIVE) Urine Bacteria FEW (NEGATIVE) Urine Mucus FEW (NONE-MOD) 01/19/21 Range/Units 00:00 WBC (4.0-11.0) K/uL RBC (4.30-5.90) M/uL Hgb (12.0-16.0) g/dL Hct (36.0-46.0) % MCV (80.0-98.0) fL MCH (27.0-32.0) pg MCHC (31.0-37.0) g/dL RDW Std Deviation (28.0-62.0) fl RDW Coeff of [place] (11.0-15.0) % Plt Count (150-400) K/uL MPV (7.40-12.00) fL Neut % (Auto) (48.0-80.0) % Lymph % (Auto) (16.0-40.0) % [place] % (Auto) (0.0-15.0) % Eos % (Auto) (0.0-7.0) % Baso % (Auto) (0.0-1.5) % Neut # (Auto) (1.4-5.7) K/uL Lymph # (Auto) (0.6-2.4) K/uL [place] # (Auto) (0.0-0.8) K/uL Eos # (Auto) (0.0-0.7) K/uL Baso # (Auto) (0.0-0.1) K/uL Nucleated RBC % /100WBC Nucleated RBCs # K/uL INR 1.07 Sodium (136-145) mmol/L Potassium (3.5-5.1) mmol/L Chloride (98-107) mmol/L Carbon Dioxide (21.0-32.0) mmol/L BUN (7.0-18.0) mg/dL Creatinine (0.6-1.0) mg/dL Est Cr Clr Drug Dosing mL/min Estimated GFR (MDRD) ml/min Glucose (74-106) mg/dL Calcium (8.5-10.1) mg/dL Total Bilirubin (0.2-1.0) mg/dL AST (15-37) IU/L ALT (14-63) IU/L Alkaline Phosphatase (46-116) U/L Total Protein (6.4-8.2) g/dL Albumin (3.4-5.0) g/dL Globulin (2.6-4.0) g/dL Albumin/Globulin Ratio (0.9-1.6) Lipase (73-393) U/L Urine Color Urine Appearance Urine pH (5.0-8.0) Ur Specific [place] (1.001-1.035) Urine Protein (NEGATIVE) mg/dL Urine Glucose (UA) (NEGATIVE) mg/dL Urine Ketones (NEGATIVE) mg/dL Urine Occult Blood (NEGATIVE) Urine Nitrite (NEGATIVE) Urine Bilirubin (NEGATIVE) Urine Urobilinogen (<2.0) EU/dL Ur Leukocyte Esterase (NEGATIVE) Urine RBC (0-2/HPF) Urine WBC (0-5/HPF) Ur Epithelial Cells (NONE-FEW) Amorphous Sediment (NEGATIVE) Urine Bacteria (NEGATIVE) Urine Mucus (NONE-MOD) Meds: Medications Generic Name Dose Route Start Last Admin Trade Name Freq PRN Reason Stop Dose Admin Sodium Chloride 10 ml 01/18/21 23:32 Sodium Chloride 0.9% 10 Ml Syringe FLUSH ASDIRECTED PRN Keep Vein Open Sodium Chloride 2.5 ml 01/18/21 23:32 Sodium Chloride 0.9% 2.5 Ml Syringe FLUSH ASDIRECTED PRN Keep Vein Open Discontinued Medications Generic Name Dose Route Start Last Admin Trade Name Freq PRN Reason Stop Dose Admin Iopamidol 100 ml 01/19/21 01:34 01/19/21 01:35 Iopamidol 755 Mg/Ml 100 Ml Bottle IVPUSH 01/19/21 01:35 100 ml ONETIME ONE Administration Morphine Sulfate 2 mg 01/18/21 23:34 01/19/21 00:19 Morphine 4 Mg/Ml Syringe IVPUSH 01/18/21 23:35 2 mg ONETIME ONE Administration Departure - Departure Time of Disposition: 03:12 Disposition: DC/Tfer to SNF 03 Condition: Good Clinical Impression: Low back pain - Discharge Information Referrals: Dion Connell MD [Primary Care Provider] - Forms: ED Department Discharge Additional Instructions: Return for difficulty with bowel movement or urination or leg weakness or fever or increasing pain or change or worsening condition or lack of improvement. Follow-up with your primary care doctor and vascular surgeon early next week for reevaluation. Please bring in the copies of the tests and CAT scan results that we have done for you here today. Sepsis Event Note (ED) - Evaluation Sepsis Screening Result: No Definite Risk - Focused Exam Vital Signs: Vital Signs Temp Pulse Resp BP Pulse Ox 01/18/21 22:58 37.1 C 63 18 115/61 95 - My Orders Last 24 Hours: My Active Orders 01/18/21 23:32 Sodium Chloride 0.9% [Saline Flush] 10 ml FLUSH ASDIRECTED PRN Sodium Chloride 0.9% [Saline Flush] 2.5 ml FLUSH ASDIRECTED PRN Saline Lock Insert [OM.PC] Stat - Assessment/Plan Last 24 Hours: My Active Orders 01/18/21 23:32 Sodium Chloride 0.9% [Saline Flush] 10 ml FLUSH ASDIRECTED PRN Sodium Chloride 0.9% [Saline Flush] 2.5 ml FLUSH ASDIRECTED PRN Saline Lock Insert [OM.PC] Stat
[2021-01-19 00:46] LABS: CARBON DIOXIDE,CO2 30.7 mmol/L (21.0-32.0); POTASSIUM,K 3.2 mmol/L (3.5-5.1)
[2021-01-19] MEDS ORDERED: Iopamidol 755 Mg/ML 100 ML Bottle IVPUSH ONE (01:34)
--- NOTE | 2021-01-19 02:01 | CT ---
INDICATION: Back, abdominal pain TECHNIQUE: CT Abdomen and pelvis with i.v. contrast. Coronal and sagittal reformats were obtained. CONTRAST: 100 mL Isovue 370 COMPARISON: 12/30/2017 FINDINGS: The sensitivity and specificity of the exam are moderately limited by beam hardening artifacts from scanning with the arms by the patient`s side. Lower chest: Trace right pleural effusion with pleural thickening is noted, decreased from prior exam. Liver: Unremarkable. Spleen: Unremarkable. Pancreas: Unremarkable. Gallbladder: Unremarkable. Kidney: Small cortical renal cysts are present bilaterally measuring up to 1.2 cm. Adrenal: Unremarkable. Bowel: Unremarkable. The appendix is not identified. Vascular: There is a short-segment chronic dissection of the abdominal aorta present with calcification of the dissection flap that is unchanged from prior exam. Mild aneurysmal enlargement of the infrarenal abdominal aorta is present measuring 3.1 cm and increased from prior exam where it measured 2.5 cm. Endovascular stenting of the distal abdominal aorta and common iliac arteries are noted. No enhancement of the left common iliac stent is seen which may be due to severe stenosis or occlusion. A femoral-femoral graft is present with internal enhancement. Lymph: Unremarkable. Peritoneum: Unremarkable. No pneumoperitoneum is seen. No significant ascites is noted. Pelvis: Unremarkable. Soft tissue: Unremarkable. Bone: Mild levoscoliosis is noted with associated facet arthritis and degenerative disc disease. Mild chronic compression deformity on the superior endplate of T12 is noted without interval change. Trace anterolisthesis of L3-4 is noted without change. IMPRESSIONS: 1. There is a short-segment chronic dissection of the abdominal aorta present with calcification of the dissection flap that is unchanged from prior exam. 2. Mild aneurysmal enlargement of the infrarenal abdominal aorta is present measuring 3.1 cm and increased from prior exam where it measured 2.5 cm. 3. No enhancement of the left common iliac stent is seen which may be due to severe stenosis or occlusion. Please note that all CT scans at this facility use dose modulation, iterative reconstruction, and/or weight-based dosing when appropriate to reduce radiation dose to as low as reasonably achievable. Dictated by: Amari Muñoz MD @ 01/19/2021 02:00:49 (Electronically Signed)
[2021-01-19 03:21] VITALS: BP 119/59; PULSE 62
== END 2021-01-19 03:22 | disposition home or self-care (01) ==
LOC: MW.ED 21:16
DX: M54.5 Low back pain (principal); I25.10 Atherosclerotic heart disease of native coronary artery without angina pectoris; E78.00 Pure hypercholesterolemia, unspecified; I10 Essential (primary) hypertension; I25.2 Old myocardial infarction; J44.9 Chronic obstructive pulmonary disease, unspecified; Z72.0 Tobacco use; Z79.899 Other long term (current) drug therapy; Z79.02 Long term (current) use of antithrombotics/antiplatelets; Z95.5 Presence of coronary angioplasty implant and graft; Z88.5 Allergy status to narcotic agent; Z88.2 Allergy status to sulfonamides; Z88.8 Allergy status to other drugs, medicaments and biological substances
CPT/HCPCS: 74177; 80053; 81001; 83690; 85025; 85610; 87086; 96374; 99284; J2270; Q9967

== ENCOUNTER 2021-05-16 09:36 | Inpatient (IN) | payer MEDICARE, MEDICAID ==
--- NOTE | 2021-05-16 09:45 | EDM.PDOC ---
ED HPI GENERAL MEDICAL PROBLEM - General Stated Complaint: FALLING DOWN ALOT/NOT PROCESSING/NOT VERBALIZING Time Seen by Provider: 05/16/21 09:38 Source of Information: Reports: Patient History Limitations: Reports: No Limitations - History of Present Illness INITIAL COMMENTS - FREE TEXT/NARRATIVE: 70F PMHx HTN, COPD not on home O2, GERD, lung CA s/p partial resection, chronic angina presents for confusion. Patient is poor historian secondary to clinical condition. Patient notes that for the last several days she has had generalized weakness, shortness of breath, productive cough, confusion. She also feels dizzy. She denies any chest pain. She is uncertain about fevers. She does live at home alone and typically ambulates with a cane. Her daughter presents with her notes that this is not her typical self. She is a a and O x2 which again is not her typical self. headache] Pain Score (Numeric/FACES): 5 - Related Data Allergies Allergy/AdvReac Type Severity Reaction Status Date / Time ibuprofen [From Motrin] Allergy Intermediate Headache Verified 05/16/21 09:53 Sulfa (Sulfonamide Allergy Intermediate Swollen Verified 05/16/21 09:53 Antibiotics) Eyes oxycodone Allergy Confusion/h Verified 05/16/21 09:53 allucinatio ns/depressi on Home Meds: Home Meds Lisinopril 10 mg PO DAILY #30 tablet 02/17/14 [Rx] atenoloL [Atenolol] 50 mg PO DAILY #30 tablet 02/17/14 [Rx] FLUoxetine [PROzac] 20 mg PO DAILY 08/06/16 [History] Nitroglycerin [Nitrostat] 0.4 mg SL Q5M PRN 08/06/16 [History] atorvaSTATin [Lipitor] 10 mg PO BEDTIME 08/06/16 [History] buPROPion [Wellbutrin SR] 300 mg PO DAILY 08/06/16 [History] Albuterol [Ventolin HFA] 1 - 2 puff INH ASDIRECTED PRN 11/04/17 [History] Clopidogrel Bisulfate [Plavix] 75 mg PO DAILY 11/04/17 [History] Sucralfate 1 gm PO QID 02/02/18 [History] Isosorbide Mononitrate [Isosorbide Mononitrate ER] 120 mg PO DAILY 05/21/18 [History] Aspirin 81 mg PO DAILY 05/16/21 [History] Omeprazole Magnesium [Prilosec Otc] 20 mg PO DAILY 05/16/21 [History] Pregabalin [Lyrica] 150 mg PO DAILY 05/16/21 [History] Past Medical History HEENT History: Reports: Impaired Vision Other HEENT History: wears glasses, wears upper and lower dentures, lower denture not with her Cardiovascular History: Reports: CAD, High Cholesterol, Hypertension, DC, SOB on Exertion, Stents Other Cardiovascular History: peripheral arterial disease Respiratory History: Reports: COPD Other Respiratory History: h/o lung cancer couple of years ago Gastrointestinal History: Reports: Colon Polyp, GERD, GI Bleed, Other (See Below) Genitourinary History: Reports: UTI, Recurrent GREENHOUSE ASSISTANT History: Reports: , Other (See Below) Other GREENHOUSE ASSISTANT History: breast surgery Musculoskeletal History: Reports: Arthritis, Back Pain, Chronic Other Musculoskeletal History: degenerative disc disease Neurological History: Reports: Concussion Psychiatric History: Reports: Addiction, Anxiety, Bipolar, Depression Endocrine/Metabolic History: Reports: Osteoporosis 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 Hematologic History: Reports: Blood Transfusion(s) Immunologic History: Reports: None Oncologic (Cancer) History: Reports: Breast, Lung Dermatologic History: Reports: Eczema, Psoriasis - Infectious Disease History Infectious Disease History: Reports: None - Past Surgical History Head Surgeries/Procedures: Reports: None HEENT Surgical History: Reports: Cataract Surgery, Tonsillectomy Cardiovascular Surgical History: Reports: Coronary Artery Stent, Other (See Below) Other Cardiovascular Surgeries/Procedures: angiogram, femoral arterial stent placements Respiratory Surgical History: Reports: Lung Biopsies Other Respiratory Surgeries/Procedures: right upper lobe 2016 GI Surgical History: Reports: Appendectomy, Colonoscopy, Polypectomy Female Surgical History: Reports: Breast Biopsy, Hysterectomy, Tubal Ligation Other Female Surgeries/Procedures: left breast lumpectomy for breast cancer (radiation 2006) Endocrine Surgical History: Reports: None Neurological Surgical History: Reports: None Oncologic Surgical History: Reports: Biopsy of Breast, Lumpectomy Social & Family History - Family History Family Medical History: No Pertinent Family History - Caffeine Use Caffeine Use: Reports: None Caffeine Use Comment: 2 drinks/day ED ROS GENERAL - Review of Systems Review Of Systems: Comprehensive ROS is negative, except as noted in HPI. ED EXAM, GENERAL - Physical Exam Exam: See Below Exam Limited By: No Limitations General Appearance: Alert, WD/WN, No Apparent Distress Eye Exam: Bilateral Eye: EOMI, PERRL Ears: Hearing Grossly Normal Throat/Mouth: Normal Voice, No Airway Compromise Head: Atraumatic, Normocephalic Neck: Normal Inspection Respiratory/Chest: No Respiratory Distress, Lungs Clear, Normal Breath Sounds, No Accessory Muscle Use Cardiovascular: Regular Rate, Rhythm, No Edema, Tachycardia GI/Abdominal: Soft, Non-Tender Extremities: Normal Inspection Neurological: Alert, Other (AAOx2, not oriented to time) Psychiatric: Normal Affect, Normal Mood Skin Exam: Warm, Dry, Intact, Normal Color #1 Interpretation EKG Date: 05/16/21 Time: 10:11 Rhythm: NSR Rate (Beats/Min): 107 Godfrey: Normal P-Wave: Present QRS: Normal ST-T: Normal QT: Normal IN/PQ Interval: 148 EKG Interpretation Comments: poor baseline obscures definitive interpretation Course - Vital Signs Last Recorded V/S: Last Vital Signs Temp 98.5 F 05/16/21 09:53 Pulse 108 H 05/16/21 09:53 Resp 20 05/16/21 09:53 BP 125/68 05/16/21 09:53 Pulse Ox 92 L 05/16/21 10:02 - Orders/Labs/Meds Orders: Active Orders 24 hr Category Date Time Status Blood Glucose Check, Bedside [RC] ONETIME Care 05/16/21 09:59 Active Cardiac Monitoring [RC] . DIRECTED Care 05/16/21 09:58 Active Pulse Oximetry [RC] ASDIRECTED Care 05/16/21 09:58 Active CULTURE BLOOD [BC] Stat Lab 05/16/21 10:35 Received CULTURE BLOOD [BC] Stat Lab 05/16/21 10:57 Received Potassium Chloride Riders [KCL in Water 40 MEQ/100 ML] Med 05/16/21 11:01 Active 40 meq Premix Bag 1 bag IV ONETIME Remdesivir 200 mg Med 05/16/21 12:15 Active Sodium Chloride 0.9% [Normal Saline] 250 ml IV ONETIME Sodium Chloride 0.9% [Normal Saline] 1,000 ml Med 05/16/21 11:45 Active IV .BOLUS Blood Culture x2 Reflex Set [OM.PC] Stat Oth 05/16/21 10:26 Ordered Saline Lock Insert [OM.PC] Stat Oth 05/16/21 09:58 Ordered Medication Orders Potassium Chloride 40 meq/ (Premix) 100 mls @ 25 mls/hr IV ONETIME ONE Stop: 05/16/21 15:00 Last Admin: 05/16/21 12:38 Dose: 25 mls/hr Documented by: LUTHER Sodium Chloride (Normal Saline) 1,000 mls @ 100 mls/hr IV .BOLUS STANLEY Remdesivir 200 mg/ Sodium (Chloride) 250 mls @ 250 mls/hr IV ONETIME ONE Stop: 05/16/21 13:14 Last Admin: 05/16/21 12:39 Dose: 250 mls/hr Documented by: LUTHER Labs: Laboratory Tests 05/16/21 05/16/21 05/16/21 Range/Units 09:52 10:00 10:00 WBC 22.56 H (4.0-11.0) K/uL RBC 5.39 (4.30-5.90) M/uL Hgb 14.9 (12.0-16.0) g/dL Hct 43.4 (36.0-46.0) % MCV 80.5 (80.0-98.0) fL MCH 27.6 (27.0-32.0) pg MCHC 34.3 (31.0-37.0) g/dL RDW Std Deviation 44.2 (28.0-62.0) fl RDW Coeff of Oscar 15 (11.0-15.0) % Plt Count 206 (150-400) K/uL MPV 10.50 (7.40-12.00) fL Add Manual Diff YES Neutrophils % (Manual) 79 (48.0-80.0) % Band Neutrophils % 12 % Lymphocytes % (Manual) 3 L (16.0-40.0) % Monocytes % (Manual) 6 (0.0-15.0) % Nucleated RBC % 0.0 /100WBC Absolute Seg Neuts 17.8 H (1.4-5.7) Band Neutrophils # 2.7 Lymphocytes # (Manual) 0.7 (0.6-2.4) Monocytes # (Manual) 1.4 H (0.0-0.8) Nucleated RBCs # 0 K/uL VBG pH (7.31-7.41) VBG pCO2 (41-51) mmHG VBG pO2 mmHG VBG HCO3 (23-28) mEq/L VBG Total CO2 (24-29) mmol/L VBG Base Excess (-2.0-3.0) Sodium 128 L (136-145) mmol/L Potassium 2.6 L (3.5-5.1) mmol/L Chloride 88 L (98-107) mmol/L Carbon Dioxide 30.1 (21.0-32.0) mmol/L BUN 27 H (7.0-18.0) mg/dL Creatinine 1.7 H (0.6-1.0) mg/dL Est Cr Clr Drug Dosing 31.26 mL/min Estimated GFR (MDRD) 29.5 ml/min Glucose 99 (74-106) mg/dL POC Glucose (70-99) mg/dL Lactic Acid (0.4-2.0) mmol/L Calcium 8.9 (8.5-10.1) mg/dL Magnesium 1.6 L (1.8-2.4) mg/dL Total Bilirubin 2.4 H (0.2-1.0) mg/dL AST 235 H (15-37) IU/L ALT 79 H (14-63) IU/L Alkaline Phosphatase 145 H (46-116) U/L Troponin I 0.155 H* (0.000-0.056) ng/mL C-Reactive Protein 35.30 H (0.00-0.90) mg/dL B-Natriuretic Peptide (<100) PG/ML Total Protein 7.6 (6.4-8.2) g/dL Albumin 3.0 L (3.4-5.0) g/dL Globulin 4.6 H (2.6-4.0) g/dL Albumin/Globulin Ratio 0.7 L (0.9-1.6) TSH, Ultra Sensitive 0.71 (0.36-3.74) uIU/mL Urine Color Urine Appearance Urine pH (5.0-8.0) Ur Specific [place] (1.001-1.035) Urine Protein (NEGATIVE) mg/dL Urine Glucose (UA) (NEGATIVE) mg/dL Urine Ketones (NEGATIVE) mg/dL Urine Occult Blood (NEGATIVE) Urine Nitrite (NEGATIVE) Urine Bilirubin (NEGATIVE) Urine Urobilinogen (<2.0) EU/dL Ur Leukocyte Esterase (NEGATIVE) Urine RBC (0-2/HPF) Urine WBC (0-5/HPF) Ur Epithelial Cells (NONE-FEW) Urine Bacteria (NEGATIVE) Urine Opiates Screen (NEGATIVE) Ur Oxycodone Screen (NEGATIVE) Urine Methadone Screen (NEGATIVE) Ur Barbiturates Screen (NEGATIVE) Ur Phencyclidine Scrn (NEGATIVE) Ur Amphetamine Screen (NEGATIVE) U Methamphetamines Scrn (NEGATIVE) U Benzodiazepines Scrn (NEGATIVE) U Cocaine Metab Screen (NEGATIVE) U Marijuana (THC) Screen (NEGATIVE) Ethyl Alcohol < 3.0 mg/dL SARS-CoV-2 RNA (VAN) POSITIVE H (NEGATIVE) 05/16/21 05/16/21 05/16/21 Range/Units 10:00 10:00 10:01 WBC (4.0-11.0) K/uL RBC (4.30-5.90) M/uL Hgb (12.0-16.0) g/dL Hct (36.0-46.0) % MCV (80.0-98.0) fL MCH (27.0-32.0) pg MCHC (31.0-37.0) g/dL RDW Std Deviation (28.0-62.0) fl RDW Coeff of Oscar (11.0-15.0) % Plt Count (150-400) K/uL MPV (7.40-12.00) fL Add Manual Diff Neutrophils % (Manual) (48.0-80.0) % Band Neutrophils % % Lymphocytes % (Manual) (16.0-40.0) % Monocytes % (Manual) (0.0-15.0) % Nucleated RBC % /100WBC Absolute Seg Neuts (1.4-5.7) Band Neutrophils # Lymphocytes # (Manual) (0.6-2.4) Monocytes # (Manual) (0.0-0.8) Nucleated RBCs # K/uL VBG pH (7.31-7.41) VBG pCO2 (41-51) mmHG VBG pO2 mmHG VBG HCO3 (23-28) mEq/L VBG Total CO2 (24-29) mmol/L VBG Base Excess (-2.0-3.0) Sodium (136-145) mmol/L Potassium (3.5-5.1) mmol/L Chloride (98-107) mmol/L Carbon Dioxide (21.0-32.0) mmol/L BUN (7.0-18.0) mg/dL Creatinine (0.6-1.0) mg/dL Est Cr Clr Drug Dosing mL/min Estimated GFR (MDRD) ml/min Glucose (74-106) mg/dL POC Glucose (70-99) mg/dL Lactic Acid 1.7 (0.4-2.0) mmol/L Calcium (8.5-10.1) mg/dL Magnesium (1.8-2.4) mg/dL Total Bilirubin (0.2-1.0) mg/dL AST (15-37) IU/L ALT (14-63) IU/L Alkaline Phosphatase (46-116) U/L Troponin I (0.000-0.056) ng/mL C-Reactive Protein (0.00-0.90) mg/dL B-Natriuretic Peptide 48 (<100) PG/ML Total Protein (6.4-8.2) g/dL Albumin (3.4-5.0) g/dL Globulin (2.6-4.0) g/dL Albumin/Globulin Ratio (0.9-1.6) TSH, Ultra Sensitive (0.36-3.74) uIU/mL Urine Color YELLOW Urine Appearance CLOUDY Urine pH 6.0 (5.0-8.0) Ur Specific [place] 1.025 (1.001-1.035) Urine Protein 30 H (NEGATIVE) mg/dL Urine Glucose (UA) NEGATIVE (NEGATIVE) mg/dL Urine Ketones TRACE H (NEGATIVE) mg/dL Urine Occult Blood LARGE H (NEGATIVE) Urine Nitrite NEGATIVE (NEGATIVE) Urine Bilirubin MODERATE H (NEGATIVE) Urine Urobilinogen 1.0 (<2.0) EU/dL Ur Leukocyte Esterase MODERATE H (NEGATIVE) Urine RBC 20-30 (0-2/HPF) Urine WBC 40-50 (0-5/HPF) Ur Epithelial Cells FEW (NONE-FEW) Urine Bacteria 3+ H (NEGATIVE) Urine Opiates Screen (NEGATIVE) Ur Oxycodone Screen (NEGATIVE) Urine Methadone Screen (NEGATIVE) Ur Barbiturates Screen (NEGATIVE) Ur Phencyclidine Scrn (NEGATIVE) Ur Amphetamine Screen (NEGATIVE) U Methamphetamines Scrn (NEGATIVE) U Benzodiazepines Scrn (NEGATIVE) U Cocaine Metab Screen (NEGATIVE) U Marijuana (THC) Screen (NEGATIVE) Ethyl Alcohol mg/dL SARS-CoV-2 RNA (VAN) (NEGATIVE) 05/16/21 05/16/21 05/16/21 Range/Units 10:01 10:05 10:30 WBC (4.0-11.0) K/uL RBC (4.30-5.90) M/uL Hgb (12.0-16.0) g/dL Hct (36.0-46.0) % MCV (80.0-98.0) fL MCH (27.0-32.0) pg MCHC (31.0-37.0) g/dL RDW Std Deviation (28.0-62.0) fl RDW Coeff of Oscar (11.0-15.0) % Plt Count (150-400) K/uL MPV (7.40-12.00) fL Add Manual Diff Neutrophils % (Manual) (48.0-80.0) % Band Neutrophils % % Lymphocytes % (Manual) (16.0-40.0) % Monocytes % (Manual) (0.0-15.0) % Nucleated RBC % /100WBC Absolute Seg Neuts (1.4-5.7) Band Neutrophils # Lymphocytes # (Manual) (0.6-2.4) Monocytes # (Manual) (0.0-0.8) Nucleated RBCs # K/uL VBG pH 7.42 H (7.31-7.41) VBG pCO2 46 (41-51) mmHG VBG pO2 < 30 mmHG VBG HCO3 30 H (23-28) mEq/L VBG Total CO2 27 (24-29) mmol/L VBG Base Excess 4.4 H (-2.0-3.0) Sodium (136-145) mmol/L Potassium (3.5-5.1) mmol/L Chloride (98-107) mmol/L Carbon Dioxide (21.0-32.0) mmol/L BUN (7.0-18.0) mg/dL Creatinine (0.6-1.0) mg/dL Est Cr Clr Drug Dosing mL/min Estimated GFR (MDRD) ml/min Glucose (74-106) mg/dL POC Glucose 98 (70-99) mg/dL Lactic Acid (0.4-2.0) mmol/L Calcium (8.5-10.1) mg/dL Magnesium (1.8-2.4) mg/dL Total Bilirubin (0.2-1.0) mg/dL AST (15-37) IU/L ALT (14-63) IU/L Alkaline Phosphatase (46-116) U/L Troponin I (0.000-0.056) ng/mL C-Reactive Protein (0.00-0.90) mg/dL B-Natriuretic Peptide (<100) PG/ML Total Protein (6.4-8.2) g/dL Albumin (3.4-5.0) g/dL Globulin (2.6-4.0) g/dL Albumin/Globulin Ratio (0.9-1.6) TSH, Ultra Sensitive (0.36-3.74) uIU/mL Urine Color Urine Appearance Urine pH (5.0-8.0) Ur Specific [place] (1.001-1.035) Urine Protein (NEGATIVE) mg/dL Urine Glucose (UA) (NEGATIVE) mg/dL Urine Ketones (NEGATIVE) mg/dL Urine Occult Blood (NEGATIVE) Urine Nitrite (NEGATIVE) Urine Bilirubin (NEGATIVE) Urine Urobilinogen (<2.0) EU/dL Ur Leukocyte Esterase (NEGATIVE) Urine RBC (0-2/HPF) Urine WBC (0-5/HPF) Ur Epithelial Cells (NONE-FEW) Urine Bacteria (NEGATIVE) Urine Opiates Screen NEGATIVE (NEGATIVE) Ur Oxycodone Screen NEGATIVE (NEGATIVE) Urine Methadone Screen NEGATIVE (NEGATIVE) Ur Barbiturates Screen NEGATIVE (NEGATIVE) Ur Phencyclidine Scrn NEGATIVE (NEGATIVE) Ur Amphetamine Screen NEGATIVE (NEGATIVE) U Methamphetamines Scrn NEGATIVE (NEGATIVE) U Benzodiazepines Scrn NEGATIVE (NEGATIVE) U Cocaine Metab Screen NEGATIVE (NEGATIVE) U Marijuana (THC) Screen NEGATIVE (NEGATIVE) Ethyl Alcohol mg/dL SARS-CoV-2 RNA (VAN) (NEGATIVE) Meds: Medications Generic Name Dose Route Start Last Admin Trade Name Freq PRN Reason Stop Dose Admin Potassium Chloride 40 meq/ 100 mls @ 25 mls/hr 05/16/21 11:01 05/16/21 12:38 Premix IV 05/16/21 15:00 25 mls/hr ONETIME ONE Administration Sodium Chloride 1,000 mls @ 100 mls/hr 05/16/21 11:45 Normal Saline IV .BOLUS STANLEY Remdesivir 200 mg/ Sodium 250 mls @ 250 mls/hr 05/16/21 12:15 05/16/21 12:39 Chloride IV 05/16/21 13:14 250 mls/hr ONETIME ONE Administration Discontinued Medications Generic Name Dose Route Start Last Admin Trade Name Jovita PRN Reason Stop Dose Admin Acetaminophen 1,000 mg 05/16/21 10:00 05/16/21 10:11 Acetaminophen 500 Mg Tab PO 05/16/21 10:01 1,000 mg ONETIME ONE Administration Albuterol/Ipratropium 3 ml 05/16/21 09:58 05/16/21 10:11 Albuterol/Ipratropium 3.0-0.5 Mg/3 Ml Neb Soln NEB 05/16/21 09:59 3 ml ONETIME ONE Administration Aspirin 324 mg 05/16/21 11:01 05/16/21 11:33 Aspirin 81 Mg Tab.Chew PO 05/16/21 11:02 324 mg ONETIME ONE Administration Cefepime HCl 2 gm/ Premix 50 mls @ 100 mls/hr 05/16/21 10:51 05/16/21 11:33 IV 05/16/21 11:20 100 mls/hr ONETIME ONE Administration Sodium Chloride 1,000 mls @ 999 mls/hr 05/16/21 11:03 05/16/21 11:33 Normal Saline IV 05/16/21 12:03 999 mls/hr .Bolus ONE Administration Remdesivir 200 mg/ Sodium 250 mls @ 250 mls/hr 05/16/21 11:38 05/16/21 12:40 Chloride IV 05/16/21 11:39 Not Given ONETIME ONE Iopamidol 100 ml 05/16/21 12:53 05/16/21 12:53 Iopamidol 755 Mg/Ml 500 Ml Multipack Bottle IVPUSH 05/16/21 12:54 100 ml ONETIME ONE Administration Methylprednisolone Sodium Succinate 125 mg 05/16/21 09:58 05/16/21 10:11 Methylprednisolone Sodium Succinate 125 Mg/2 Ml Sdv IVPUSH 05/16/21 09:59 125 mg ONETIME ONE Administration - Re-Assessments/Exams Free Text/Narrative Re-Assessment/Exam: 05/16/21 10:17 We'll get extensive labs and imaging considering limited history and patient's clinical condition. Patient was noted to be hypoxic on room air improving with 4 L nasal cannula. Patient is not vaccinated against Covid and this is a concern. 05/16/21 10:27 Patient with significant leukocytosis to 22. Blood cultures ordered. 05/16/21 11:03 Patient's labs remarkable for elevated troponin, acute kidney injury, hyponatremia, hypokalemia. IV fluids and potassium ordered. Aspirin ordered although low suspicion ACS, suspect demand ischemia. 05/16/21 11:38 Patient's Covid test is positive. Will order remdesivir. Will get CTA to rule out pulmonary embolism. 05/16/21 12:56 CTA does not show PE. Will admit to hospitalist service. Dr. Diaz agrees to admit Departure - Departure Time of Disposition: 12:56 Disposition: Home, Self-Care 01 Condition: Good Clinical Impression: COVID-19 - Discharge Information Referrals: PCP,None [Ordering Only Provider] - Critical Care Note - Critical Care Note Total Time (mins): 35 Sepsis Event Note (ED) - Focused Exam Vital Signs: Vital Signs Temp Pulse Resp BP Pulse Ox 05/16/21 10:02 92 L 05/16/21 09:53 98.5 F 108 H 20 125/68 78 L - My Orders Last 24 Hours: My Active Orders 05/16/21 09:58 Cardiac Monitoring [RC] . DIRECTED Pulse Oximetry [RC] ASDIRECTED Saline Lock Insert [OM.PC] Stat 05/16/21 09:59 Blood Glucose Check, Bedside [RC] ONETIME 05/16/21 10:26 Blood Culture x2 Reflex Set [OM.PC] Stat 05/16/21 10:35 CULTURE BLOOD [BC] Stat 05/16/21 10:57 CULTURE BLOOD [BC] Stat 05/16/21 11:01 Potassium Chloride Riders [KCL in Water 40 MEQ/100 ML] 40 meq Premix Bag 1 bag IV ONETIME 05/16/21 11:45 Sodium Chloride 0.9% [Normal Saline] 1,000 ml IV .BOLUS 05/16/21 12:15 Remdesivir 200 mg Sodium Chloride 0.9% [Normal Saline] 250 ml IV ONETIME - Assessment/Plan Last 24 Hours: My Active Orders 05/16/21 09:58 Cardiac Monitoring [RC] . DIRECTED Pulse Oximetry [RC] ASDIRECTED Saline Lock Insert [OM.PC] Stat 05/16/21 09:59 Blood Glucose Check, Bedside [RC] ONETIME 05/16/21 10:26 Blood Culture x2 Reflex Set [OM.PC] Stat 05/16/21 10:35 CULTURE BLOOD [BC] Stat 05/16/21 10:57 CULTURE BLOOD [BC] Stat 05/16/21 11:01 Potassium Chloride Riders [KCL in Water 40 MEQ/100 ML] 40 meq Premix Bag 1 bag IV ONETIME 05/16/21 11:45 Sodium Chloride 0.9% [Normal Saline] 1,000 ml IV .BOLUS 05/16/21 12:15 Remdesivir 200 mg Sodium Chloride 0.9% [Normal Saline] 250 ml IV ONETIME
[2021-05-16] MEDS ORDERED: methylPREDNISolone Sodium Succinate 125 MG/2 ML SDV IVPUSH ONE (09:58)
[2021-05-16] MEDS ORDERED: Albuterol/Ipratropium 3.0-0.5 MG/3 ML Neb Soln NEB ONE (09:58)
[2021-05-16] MEDS ORDERED: Acetaminophen 500 MG Tab PO ONE (10:00)
[2021-05-16] MEDS ORDERED: Cefepime 2 GM in Premix Bag 1 BAG IV ONE (10:51)
[2021-05-16 10:58] LABS: BLOOD UREA NITROGEN,BUN 27 mg/dL (7.0-18.0); CARBON DIOXIDE,CO2 30.1 mmol/L (21.0-32.0); CHLORIDE,CL 88 mmol/L (98-107); GLUCOSE RANDOM 99 mg/dL (74-106); POTASSIUM,K 2.6 mmol/L (3.5-5.1); SODIUM,NA 128 mmol/L (136-145)
[2021-05-16] MEDS ORDERED: Aspirin 81 MG Tab.Chew PO ONE (11:01)
[2021-05-16] MEDS ORDERED: Potassium Chloride Riders 40 MEQ in Premix Bag 1 BAG IV ONE (11:01)
[2021-05-16] MEDS ORDERED: Sodium Chloride 0.9% 1,000 ML IV ONE (11:03)
--- NOTE | 2021-05-16 11:12 | CT ---
INDICATION: Confusion. TECHNIQUE: CT head without contrast. FINDINGS: There is no intracranial hemorrhage. Generalized parenchymal volume loss is present. There are nonspecific white matter hypodensities commonly seen with chronic small vessel disease. Pizano-white matter differentiation is otherwise maintained. The ventricles and cisterns are clear. Heavily calcified plaque is present in the internal carotid and vertebral arteries. Marked mucosal thickening/fluid noted in the right maxillary sinus. IMPRESSION: No acute intracranial abnormality at noncontrast CT. Heavily calcified plaque in the internal carotid and vertebral arteries. Please note that all CT scans at this facility use dose modulation, iterative reconstruction, and/or weight-based dosing when appropriate to reduce radiation dose to as low as reasonably achievable. Dictated by Ajit Bearden MD @ 05/16/2021 11:11:10 AM (Electronically Signed)
--- NOTE | 2021-05-16 11:14 | CR ---
INDICATION: Shortness of breath and confusion. TECHNIQUE: Chest 1 views. COMPARISON: 01/05/2021. FINDINGS: Cardiovascular and mediastinum: Heart size and vasculature are normal in caliber and appearance. Lungs and pleural spaces: Stable blunting of the right costophrenic angle. Lungs and pleural spaces otherwise clear. No pneumothorax. Bones and soft tissues: No significant findings. IMPRESSION: No acute findings and no significant changes from the prior exam. Dictated by Da Garcia MD @ 05/16/2021 11:13:08 AM (Electronically Signed)
[2021-05-16] MEDS ORDERED: REMDESIVIR 200 MG in Sodium Chloride 0.9% 250 ML IV ONE ×2 (11:38→12:15)
[2021-05-16] MEDS ORDERED: Sodium Chloride 0.9% 1,000 ML IV SCH (11:45)
--- NOTE | 2021-05-16 12:40 | CT ---
INDICATION: COVID positive. Elevated D-dimer. TECHNIQUE: CT chest PE was acquired with 100 cc Isovue 370 IV contrast. COMPARISON: 01/05/2021. FINDINGS: Heart and vasculature: Contrast opacification of the pulmonary arterial tree is adequate. No sign of pulmonary embolism. Heart size is normal. Thoracic aorta and pulmonary artery are normal in caliber. Lungs and pleural: Dense airspace infiltrate in the left lung base. Smaller similar infiltrate is in the right lung base. Severe emphysema in the upper lungs. No pleural effusions, pleural thickening, or pneumothorax. Lymph nodes/mediastinum: Multiple large mediastinal lymph nodes. Chest wall: No masses. Upper abdomen: Multiple large amount of mural thrombus present in the proximal abdominal aorta. No other acute or significant finding. Bones: Mild compression deformity of the L1 vertebral body is likely chronic. IMPRESSION: 1. No pulmonary embolism. 2. Bilateral lower lobe pneumonia is worse in the left lung base. The pattern of infiltrates is not typical for COVID pneumonitis. Please note that all CT scans at this facility use dose modulation, iterative reconstruction, and/or weight-based dosing when appropriate to reduce radiation dose to as low as reasonably achievable. Dictated by Da Garcia MD @ 05/16/2021 12:39:29 PM (Electronically Signed)
[2021-05-16] MEDS ORDERED: Iopamidol 755 MG/ML 500 ML Multipack Bottle IVPUSH ONE (12:53)
[2021-05-16] MEDS ORDERED: Sodium Chloride 0.9% 1,000 ML IV STA (15:19)
[2021-05-16] MEDS ORDERED: Potassium Chloride 20 MEQ Tab.ER PO ONE (15:20)
[2021-05-16] MEDS ORDERED: Magnesium Sulfate/Water 2 GM in Premix Bag 1 BAG IV ONE (15:20)
[2021-05-16] MEDS ORDERED: Albuterol/Ipratropium 4 GM Inhalation Spray INH PRN (15:28)
--- NOTE | 2021-05-16 15:39 | PCM.HP.2 ---
<Cheryl Chun - Last Filed: 05/16/21 15:41> H&P History of Present Illness - General Date of Service: 05/16/21 Admit Problem/Dx: Admission Diagnosis/Problem Admission Diagnosis/Problem Pneumonia - History of Present Illness Initial Comments - Free Text/Narative: The patient is a 70-year-old female, on day 1 of service, who has a significant past medical history of chronic obstructive pulmonary disease without any home oxygen, GERD, hypertension, hyperlipidemia, peripheral arterial disease, anxiety, depression, bipolar disorder, past addiction to narcotics, lung cancer status post partial resection, breast cancer, and chronic angina, who was admitted to the medical floor due to COVID-19 pneumonia, bacterial pneumonia, and urinary tract infection. The majority of the history was taken by the patient's daughter Cleo who was at bedside, she explains that yesterday she found her mother extremely confused and incoherent, was sitting in her chair naked and typically this is not how her behavior is. She saw her mother laying half on a chair and the other half of her body was hanging off. She explains that her mother for the past 24 hours has had extreme weakness, shortness of breath, productive cough characteristic of yellow sputum, dizziness, and problems with ambulation. The patient denies any chest pain, palpitations, abdominal pain, nausea, vomiting, or issues with defecation. In regards to her social history, she has a past history of addiction to narcotic medications, has been smoking 1 pack of cigarettes for the past 60 years, and is an occasional alcohol drinker. Her family history is significant for stroke in her uncle, CAD and diabetes on the father's side. In regards to her allergies, she is allergic to sulfa drugs, ibuprofen, and oxycodone. The daughter of the patient has explicitly asked that the patient does not receive any narcotic pain medications due to her past addiction history. There are no other health concerns at this time. On CBC, white blood cell count is 22.56, hemoglobin is 14.9, hematocrit is 43.4, and platelet count is 206. On CMP, sodium is 128, potassium is 2.6, chloride is 88, carbon dioxide 30.1, BUN is 27, creatinine is 1.7, AST is 235, ALT is 79. Magnesium was low at 1.6 Troponin level was slightly elevated at 0.155 Urine analysis shows moderately higher levels of leukocyte esterase Chest x-ray shows a heart size and mediastinum which is normal, there is some blunting of the right costophrenic angle CTA shows no pulmonary embolism, however there is bilateral pneumonia which is not typical for COVID-[address] shows no intracranial hemorrhage or abnormalities, but there is heavy calcified plaques in the internal carotid and vertebral artery In the emergency department, the patient had an EKG done which showed a normal sinus rhythm, she received remdesivir 200 mg per IV route once, had 2 blood cultures drawn, had 1 normal saline bolus, received cefepime, duo nebs once, aspirin once, and methylprednisolone 125 mg once. headache] Pain Score (Numeric/FACES): 5 - Related Data Allergies/Adverse Reactions: Allergies Allergy/AdvReac Type Severity Reaction Status Date / Time ibuprofen [From Motrin] Allergy Intermediate Headache Verified 05/16/21 17:01 Sulfa (Sulfonamide Allergy Intermediate Swollen Verified 05/16/21 17:01 Antibiotics) Eyes oxycodone Allergy Confusion/h Verified 05/16/21 17:01 allucinatio ns/depressi on Home Medications: Home Meds Lisinopril 10 mg PO DAILY #30 tablet 02/17/14 [Rx] atenoloL [Atenolol] 50 mg PO DAILY #30 tablet 02/17/14 [Rx] FLUoxetine [PROzac] 20 mg PO DAILY 08/06/16 [History] Nitroglycerin [Nitrostat] 0.4 mg SL Q5M PRN 08/06/16 [History] atorvaSTATin [Lipitor] 10 mg PO BEDTIME 08/06/16 [History] buPROPion [Wellbutrin SR] 300 mg PO DAILY 08/06/16 [History] Albuterol [Ventolin HFA] 1 - 2 puff INH ASDIRECTED PRN 11/04/17 [History] Clopidogrel Bisulfate [Plavix] 75 mg PO DAILY 11/04/17 [History] Sucralfate 1 gm PO QID 02/02/18 [History] Isosorbide Mononitrate [Isosorbide Mononitrate ER] 120 mg PO DAILY 05/21/18 [History] Aspirin 81 mg PO DAILY 05/16/21 [History] Omeprazole Magnesium [Prilosec Otc] 20 mg PO DAILY 05/16/21 [History] Pregabalin [Lyrica] 150 mg PO DAILY 05/16/21 [History] Past Medical History HEENT History: Reports: Impaired Vision Other HEENT History: wears glasses, wears upper and lower dentures, lower denture not with her Cardiovascular History: Reports: CAD, High Cholesterol, Hypertension, CA, SOB on Exertion, Stents Other Cardiovascular History: peripheral arterial disease Respiratory History: Reports: COPD Other Respiratory History: h/o lung cancer couple of years ago Gastrointestinal History: Reports: Colon Polyp, GERD, GI Bleed, Other (See Below) Genitourinary History: Reports: UTI, Recurrent LINEN CLERK History: Reports: , Other (See Below) Other OB/BYN History: breast surgery Musculoskeletal History: Reports: Arthritis, Back Pain, Chronic Other Musculoskeletal History: degenerative disc disease Neurological History: Reports: Concussion Psychiatric History: Reports: Addiction, Anxiety, Bipolar, Depression Endocrine/Metabolic History: Reports: Osteoporosis Insulin Pump Model and Television News Photographer: None Hematologic History: Reports: Blood Transfusion(s) Immunologic History: Reports: None Oncologic (Cancer) History: Reports: Breast, Lung Dermatologic History: Reports: Eczema, Psoriasis - Infectious Disease History Infectious Disease History: Reports: None - Past Surgical History Head Surgeries/Procedures: Reports: None HEENT Surgical History: Reports: Cataract Surgery, Tonsillectomy Cardiovascular Surgical History: Reports: Coronary Artery Stent, Other (See Below) Other Cardiovascular Surgeries/Procedures: angiogram, femoral arterial stent placements Respiratory Surgical History: Reports: Lung Biopsies Other Respiratory Surgeries/Procedures: right upper lobe 2016 GI Surgical History: Reports: Appendectomy, Colonoscopy, Polypectomy Female Surgical History: Reports: Breast Biopsy, Hysterectomy, Tubal Ligation Other Female Surgeries/Procedures: left breast lumpectomy for breast cancer (radiation 2006) Endocrine Surgical History: Reports: None Neurological Surgical History: Reports: None Oncologic Surgical History: Reports: Biopsy of Breast, Lumpectomy Social & Family History - Family History Family Medical History: No Pertinent Family History - Tobacco Use Tobacco Use Status *Q: Former Tobacco User Used Tobacco, but Quit: Yes Month/Year Tobacco Last Used: 05/02/21 - Caffeine Use Caffeine Use: Reports: Coffee Caffeine Use Comment: 2 drinks/day - Recreational Drug Use Recreational Drug Use: No H&P Review of Systems - Review of Systems: Review Of Systems: See Below General: Reports: Chills, Weakness, Fatigue. Denies: Fever HEENT: Reports: Headaches. Denies: Sore Throat Pulmonary: Reports: Shortness of Breath, Wheezing, Cough Cardiovascular: Denies: Chest Pain, Palpitations Gastrointestinal: Denies: Abdominal Pain, Nausea, Vomiting Genitourinary: Reports: Dysuria Psychiatric: Denies: Depression, Hallucinations Neurological: Reports: Confusion, Dizziness Exam - Exam Exam: See Below - Vital Signs Vital Signs: Last Vital Signs Temp 98.8 F 05/16/21 13:00 Pulse 90 05/16/21 13:48 Resp 18 05/16/21 13:48 BP 129/68 05/16/21 13:48 Pulse Ox 94 L 05/16/21 13:48 Weight: 172 lb - Exam General: Alert, Oriented, Cooperative HEENT: EOMI, Other (Dry mucous membranes) Neck: Trachea Midline. No: Lymphadenopathy Lungs: Wheezing Cardiovascular: Regular Rate, Regular Rhythm GI/Abdominal Exam: Normal Bowel Sounds, Soft, Non-Tender Neurological: Cranial Nerves Intact, Normal Speech Neuro Extensive - Mental Status: Disorientation to Time. No: Alert, Disorientation to Person, Disorientation to Place - Patient Data Lab Results Last 24 hrs: Laboratory Results - last 24 hr 05/16/21 05/16/21 05/16/21 Range/Units 09:52 10:00 10:00 WBC 22.56 H (4.0-11.0) K/uL RBC 5.39 (4.30-5.90) M/uL Hgb 14.9 (12.0-16.0) g/dL Hct 43.4 (36.0-46.0) % MCV 80.5 (80.0-98.0) fL MCH 27.6 (27.0-32.0) pg MCHC 34.3 (31.0-37.0) g/dL RDW Std Deviation 44.2 (28.0-62.0) fl RDW Coeff of Oscar 15 (11.0-15.0) % Plt Count 206 (150-400) K/uL MPV 10.50 (7.40-12.00) fL Add Manual Diff YES Neutrophils % (Manual) 79 (48.0-80.0) % Band Neutrophils % 12 % Lymphocytes % (Manual) 3 L (16.0-40.0) % Monocytes % (Manual) 6 (0.0-15.0) % Nucleated RBC % 0.0 /100WBC Absolute Seg Neuts 17.8 H (1.4-5.7) Band Neutrophils # 2.7 Lymphocytes # (Manual) 0.7 (0.6-2.4) Monocytes # (Manual) 1.4 H (0.0-0.8) Nucleated RBCs # 0 K/uL VBG pH (7.31-7.41) VBG pCO2 (41-51) mmHG VBG pO2 mmHG VBG HCO3 (23-28) mEq/L VBG Total CO2 (24-29) mmol/L VBG Base Excess (-2.0-3.0) Sodium 128 L (136-145) mmol/L Potassium 2.6 L (3.5-5.1) mmol/L Chloride 88 L (98-107) mmol/L Carbon Dioxide 30.1 (21.0-32.0) mmol/L BUN 27 H (7.0-18.0) mg/dL Creatinine 1.7 H (0.6-1.0) mg/dL Est Cr Clr Drug Dosing 31.26 mL/min Estimated GFR (MDRD) 29.5 ml/min Glucose 99 (74-106) mg/dL POC Glucose (70-99) mg/dL Lactic Acid (0.4-2.0) mmol/L Calcium 8.9 (8.5-10.1) mg/dL Magnesium 1.6 L (1.8-2.4) mg/dL Total Bilirubin 2.4 H (0.2-1.0) mg/dL AST 235 H (15-37) IU/L ALT 79 H (14-63) IU/L Alkaline Phosphatase 145 H (46-116) U/L Troponin I 0.155 H* (0.000-0.056) ng/mL C-Reactive Protein 35.30 H (0.00-0.90) mg/dL B-Natriuretic Peptide (<100) PG/ML Total Protein 7.6 (6.4-8.2) g/dL Albumin 3.0 L (3.4-5.0) g/dL Globulin 4.6 H (2.6-4.0) g/dL Albumin/Globulin Ratio 0.7 L (0.9-1.6) TSH, Ultra Sensitive 0.71 (0.36-3.74) uIU/mL Urine Color Urine Appearance Urine pH (5.0-8.0) Ur Specific Dillon (1.001-1.035) Urine Protein (NEGATIVE) mg/dL Urine Glucose (UA) (NEGATIVE) mg/dL Urine Ketones (NEGATIVE) mg/dL Urine Occult Blood (NEGATIVE) Urine Nitrite (NEGATIVE) Urine Bilirubin (NEGATIVE) Urine Urobilinogen (<2.0) EU/dL Ur Leukocyte Esterase (NEGATIVE) Urine RBC (0-2/HPF) Urine WBC (0-5/HPF) Ur Epithelial Cells (NONE-FEW) Urine Bacteria (NEGATIVE) Urine Opiates Screen (NEGATIVE) Ur Oxycodone Screen (NEGATIVE) Urine Methadone Screen (NEGATIVE) Ur Barbiturates Screen (NEGATIVE) Ur Phencyclidine Scrn (NEGATIVE) Ur Amphetamine Screen (NEGATIVE) U Methamphetamines Scrn (NEGATIVE) U Benzodiazepines Scrn (NEGATIVE) U Cocaine Metab Screen (NEGATIVE) U Marijuana (THC) Screen (NEGATIVE) Ethyl Alcohol < 3.0 mg/dL SARS-CoV-2 RNA (VAN) POSITIVE H (NEGATIVE) 05/16/21 05/16/21 05/16/21 Range/Units 10:00 10:00 10:01 WBC (4.0-11.0) K/uL RBC (4.30-5.90) M/uL Hgb (12.0-16.0) g/dL Hct (36.0-46.0) % MCV (80.0-98.0) fL MCH (27.0-32.0) pg MCHC (31.0-37.0) g/dL RDW Std Deviation (28.0-62.0) fl RDW Coeff of Oscar (11.0-15.0) % Plt Count (150-400) K/uL MPV (7.40-12.00) fL Add Manual Diff Neutrophils % (Manual) (48.0-80.0) % Band Neutrophils % % Lymphocytes % (Manual) (16.0-40.0) % Monocytes % (Manual) (0.0-15.0) % Nucleated RBC % /100WBC Absolute Seg Neuts (1.4-5.7) Band Neutrophils # Lymphocytes # (Manual) (0.6-2.4) Monocytes # (Manual) (0.0-0.8) Nucleated RBCs # K/uL VBG pH (7.31-7.41) VBG pCO2 (41-51) mmHG VBG pO2 mmHG VBG HCO3 (23-28) mEq/L VBG Total CO2 (24-29) mmol/L VBG Base Excess (-2.0-3.0) Sodium (136-145) mmol/L Potassium (3.5-5.1) mmol/L Chloride (98-107) mmol/L Carbon Dioxide (21.0-32.0) mmol/L BUN (7.0-18.0) mg/dL Creatinine (0.6-1.0) mg/dL Est Cr Clr Drug Dosing mL/min Estimated GFR (MDRD) ml/min Glucose (74-106) mg/dL POC Glucose (70-99) mg/dL Lactic Acid 1.7 (0.4-2.0) mmol/L Calcium (8.5-10.1) mg/dL Magnesium (1.8-2.4) mg/dL Total Bilirubin (0.2-1.0) mg/dL AST (15-37) IU/L ALT (14-63) IU/L Alkaline Phosphatase (46-116) U/L Troponin I (0.000-0.056) ng/mL C-Reactive Protein (0.00-0.90) mg/dL B-Natriuretic Peptide 48 (<100) PG/ML Total Protein (6.4-8.2) g/dL Albumin (3.4-5.0) g/dL Globulin (2.6-4.0) g/dL Albumin/Globulin Ratio (0.9-1.6) TSH, Ultra Sensitive (0.36-3.74) uIU/mL Urine Color YELLOW Urine Appearance CLOUDY Urine pH 6.0 (5.0-8.0) Ur Specific Dillon 1.025 (1.001-1.035) Urine Protein 30 H (NEGATIVE) mg/dL Urine Glucose (UA) NEGATIVE (NEGATIVE) mg/dL Urine Ketones TRACE H (NEGATIVE) mg/dL Urine Occult Blood LARGE H (NEGATIVE) Urine Nitrite NEGATIVE (NEGATIVE) Urine Bilirubin MODERATE H (NEGATIVE) Urine Urobilinogen 1.0 (<2.0) EU/dL Ur Leukocyte Esterase MODERATE H (NEGATIVE) Urine RBC 20-30 (0-2/HPF) Urine WBC 40-50 (0-5/HPF) Ur Epithelial Cells FEW (NONE-FEW) Urine Bacteria 3+ H (NEGATIVE) Urine Opiates Screen (NEGATIVE) Ur Oxycodone Screen (NEGATIVE) Urine Methadone Screen (NEGATIVE) Ur Barbiturates Screen (NEGATIVE) Ur Phencyclidine Scrn (NEGATIVE) Ur Amphetamine Screen (NEGATIVE) U Methamphetamines Scrn (NEGATIVE) U Benzodiazepines Scrn (NEGATIVE) U Cocaine Metab Screen (NEGATIVE) U Marijuana (THC) Screen (NEGATIVE) Ethyl Alcohol mg/dL SARS-CoV-2 RNA (VAN) (NEGATIVE) 05/16/21 05/16/21 05/16/21 Range/Units 10:01 10:05 10:30 WBC (4.0-11.0) K/uL RBC (4.30-5.90) M/uL Hgb (12.0-16.0) g/dL Hct (36.0-46.0) % MCV (80.0-98.0) fL MCH (27.0-32.0) pg MCHC (31.0-37.0) g/dL RDW Std Deviation (28.0-62.0) fl RDW Coeff of Oscar (11.0-15.0) % Plt Count (150-400) K/uL MPV (7.40-12.00) fL Add Manual Diff Neutrophils % (Manual) (48.0-80.0) % Band Neutrophils % % Lymphocytes % (Manual) (16.0-40.0) % Monocytes % (Manual) (0.0-15.0) % Nucleated RBC % /100WBC Absolute Seg Neuts (1.4-5.7) Band Neutrophils # Lymphocytes # (Manual) (0.6-2.4) Monocytes # (Manual) (0.0-0.8) Nucleated RBCs # K/uL VBG pH 7.42 H (7.31-7.41) VBG pCO2 46 (41-51) mmHG VBG pO2 < 30 mmHG VBG HCO3 30 H (23-28) mEq/L VBG Total CO2 27 (24-29) mmol/L VBG Base Excess 4.4 H (-2.0-3.0) Sodium (136-145) mmol/L Potassium (3.5-5.1) mmol/L Chloride (98-107) mmol/L Carbon Dioxide (21.0-32.0) mmol/L BUN (7.0-18.0) mg/dL Creatinine (0.6-1.0) mg/dL Est Cr Clr Drug Dosing mL/min Estimated GFR (MDRD) ml/min Glucose (74-106) mg/dL POC Glucose 98 (70-99) mg/dL Lactic Acid (0.4-2.0) mmol/L Calcium (8.5-10.1) mg/dL Magnesium (1.8-2.4) mg/dL Total Bilirubin (0.2-1.0) mg/dL AST (15-37) IU/L ALT (14-63) IU/L Alkaline Phosphatase (46-116) U/L Troponin I (0.000-0.056) ng/mL C-Reactive Protein (0.00-0.90) mg/dL B-Natriuretic Peptide (<100) PG/ML Total Protein (6.4-8.2) g/dL Albumin (3.4-5.0) g/dL Globulin (2.6-4.0) g/dL Albumin/Globulin Ratio (0.9-1.6) TSH, Ultra Sensitive (0.36-3.74) uIU/mL Urine Color Urine Appearance Urine pH (5.0-8.0) Ur Specific Dillon (1.001-1.035) Urine Protein (NEGATIVE) mg/dL Urine Glucose (UA) (NEGATIVE) mg/dL Urine Ketones (NEGATIVE) mg/dL Urine Occult Blood (NEGATIVE) Urine Nitrite (NEGATIVE) Urine Bilirubin (NEGATIVE) Urine Urobilinogen (<2.0) EU/dL Ur Leukocyte Esterase (NEGATIVE) Urine RBC (0-2/HPF) Urine WBC (0-5/HPF) Ur Epithelial Cells (NONE-FEW) Urine Bacteria (NEGATIVE) Urine Opiates Screen NEGATIVE (NEGATIVE) Ur Oxycodone Screen NEGATIVE (NEGATIVE) Urine Methadone Screen NEGATIVE (NEGATIVE) Ur Barbiturates Screen NEGATIVE (NEGATIVE) Ur Phencyclidine Scrn NEGATIVE (NEGATIVE) Ur Amphetamine Screen NEGATIVE (NEGATIVE) U Methamphetamines Scrn NEGATIVE (NEGATIVE) U Benzodiazepines Scrn NEGATIVE (NEGATIVE) U Cocaine Metab Screen NEGATIVE (NEGATIVE) U Marijuana (THC) Screen NEGATIVE (NEGATIVE) Ethyl Alcohol mg/dL SARS-CoV-2 RNA (VAN) (NEGATIVE) Result Diagrams: 05/16/21 10:00 05/16/21 10:00 Sepsis Event Note - Evaluation Sepsis Screening Result: No Definite Risk - Focused Exam Vital Signs: Vital Signs Temp Pulse Resp BP Pulse Ox 05/16/21 13:48 90 18 129/68 94 L 05/16/21 13:00 98.8 F 87 16 107/56 L 94 L 05/16/21 12:00 88 16 100/65 85 L 05/16/21 10:02 92 L 05/16/21 09:53 98.5 F 108 H 20 125/68 78 L - Problem List (1) Bacterial pneumonia SNOMED Code(s): 13170054 ICD Code: J15.9 - UNSPECIFIED BACTERIAL PNEUMONIA Status: Acute Current Visit: Yes (2) COVID-19 SNOMED Code(s): 825915044 ICD Code: U07.1 - COVID-19 Status: Acute Current Visit: Yes (3) UTI (urinary tract infection) SNOMED Code(s): 23726431 ICD Code: N39.0 - URINARY TRACT INFECTION, SITE NOT SPECIFIED Status: Acute Current Visit: Yes (4) HTN (hypertension) SNOMED Code(s): 02014975 ICD Code: I10 - ESSENTIAL (PRIMARY) HYPERTENSION Status: Acute Current Visit: Yes (5) Depression SNOMED Code(s): 54970531 ICD Code: F32.A - DEPRESSION, UNSPECIFIED Status: Acute Current Visit: Yes (6) Chronic stable angina SNOMED Code(s): 993306722 ICD Code: I20.8 - OTHER FORMS OF ANGINA PECTORIS Status: Acute Current Visit: Yes (7) Anxiety SNOMED Code(s): 65366016 ICD Code: F41.9 - ANXIETY DISORDER, UNSPECIFIED Status: Acute Current Visit: Yes Problem List Initiated/Reviewed/Updated: Yes Orders Last 24hrs: Active Orders 24 hr Category Date Time Status Patient Status [ADT] Routine ADT 05/16/21 13:16 Active Blood Glucose Check, Bedside [RC] ONETIME Care 05/16/21 09:59 Active Cardiac Monitoring [RC] . DIRECTED Care 05/16/21 09:58 Active Oxygen Therapy [RC] PRN Care 05/16/21 13:23 Active Pulse Oximetry [RC] ASDIRECTED Care 05/16/21 09:58 Active RT Post Treatment Assessment [RC] Click to Edit Care 05/16/21 15:28 Ordered RT Pre-Treatment Assessment [RC] Click to Edit Care 05/16/21 15:28 Ordered VTE/DVT Education [RC] PER UNIT ROUTINE Care 05/16/21 13:23 Active Vital Signs [RC] Q4H Care 05/16/21 13:23 Active Regular Diet [DIET] Diet 05/16/21 Dinner Ordered CBC WITH AUTO DIFF [HEME] AM Lab 05/17/21 05:11 Ordered CBC WITH AUTO DIFF [HEME] AM Lab 05/18/21 05:11 Ordered CBC WITH AUTO DIFF [HEME] AM Lab 05/19/21 05:11 Ordered CBC WITH AUTO DIFF [HEME] AM Lab 05/20/21 05:11 Ordered CMP [COMPREHENSIVE METABOLIC PN,CMP] [CHEM] AM Lab 05/17/21 05:11 Ordered CMP [COMPREHENSIVE METABOLIC PN,CMP] [CHEM] AM Lab 05/18/21 05:11 Ordered CMP [COMPREHENSIVE METABOLIC PN,CMP] [CHEM] AM Lab 05/19/21 05:11 Ordered CMP [COMPREHENSIVE METABOLIC PN,CMP] [CHEM] AM Lab 05/20/21 05:11 Ordered CULTURE BLOOD [BC] Stat Lab 05/16/21 10:35 Received CULTURE BLOOD [BC] Stat Lab 05/16/21 10:57 Received TROPONIN I [CHEM] Q6H Lab 05/16/21 15:19 Ordered TROPONIN I [CHEM] Q6H Lab 05/16/21 21:19 Ordered Albuterol/Ipratropium [Combivent Respimat] Med 05/16/21 15:28 Ordered 1 gm INH Q4H PRN Enoxaparin [Lovenox] Med 05/16/21 15:30 Ordered 40 mg SUBCUT Q24H Magnesium Sulfate/Water [Magnesium Sulfate in Water 2 Med 05/16/21 15:20 Ordered GM/50 ML] 2 gm Premix Bag 1 bag IV ONETIME Pantoprazole [ProTONIX] Med 05/16/21 15:30 Ordered 40 mg IVPUSH DAILY Remdesivir 100 mg Med 05/17/21 12:00 Ordered Sodium Chloride 0.9% [Normal Saline AdvBag] 100 ml IV Q24H Sodium Chloride 0.9% [Normal Saline] 1,000 ml Med 05/16/21 15:19 Ordered IV NOW dexAMETHasone Med 05/17/21 09:00 Ordered 6 mg PO DAILY guaiFENesin [Robitussin] Med 05/16/21 15:28 Ordered 100 mg PO Q6H PRN Blood Culture x2 Reflex Set [OM.PC] Stat Oth 05/16/21 10:26 Ordered Saline Lock Insert [OM.PC] Stat Oth 05/16/21 09:58 Ordered Resuscitation Status Routine Resus Stat 05/16/21 13:23 Ordered Medication Orders Albuterol/Ipratropium (Albuterol/Ipratropium 4 Gm Inhalation [place]) 1 gm INH Q4H PRN PRN Reason: Dyspnea Dexamethasone (Dexamethasone 4 Mg Tab) 6 mg PO DAILY [place] Enoxaparin Sodium (Enoxaparin 40 Mg/0.4 Ml Syringe) 40 mg SUBCUT Q24H [place] Guaifenesin (Guaifenesin 100 Mg/5 Ml Soln 5 Ml Ud Cup) 100 mg PO Q6H PRN PRN Reason: Cough Sodium Chloride (Normal Saline) 1,000 mls @ 100 mls/hr IV NOW STA Stop: 05/17/21 01:18 Last Admin: 05/16/21 15:21 Dose: 100 mls/hr Documented by: LUTHER Magnesium Sulfate 2 gm/ Premix 50 mls @ 12.5 mls/hr IV ONETIME ONE Stop: 05/16/21 19:19 Remdesivir 100 mg/ Sodium (Chloride) 100 mls @ 100 mls/hr IV Q24H [place] Stop: 05/20/21 12:59 Pantoprazole Sodium (Pantoprazole 40 Mg/10 Ml Syringe) 40 mg IVPUSH DAILY [facility] Assessment/Plan Comment:: Admit the patient to the medical floor, vitals per unit routine, activity up ad emelyn., regular diet, DVT prophylaxis with Lovenox subcutaneously 40 mg once a day, GI prophylaxis with pantoprazole 40 mg once a day via IV route, the patient is full code 1. COVID-19 pneumonia -The patient was given remdesivir 200 mg per IV route once in the ED, we will continue with remdesivir 100 mg per IV route once a day starting tomorrow, 4 bags collectively -The patient was given methylprednisolone in the emergency department today, we will continue with dexamethasone per oral route 6 mg daily -For shortness of breath, the patient has Combivent on board -For cough, the patient has Robitussin on board -Incentive spirometry will be encouraged -Provide oxygen as needed 2. Bacterial pneumonia -The patient received cefepime in the emergency department, we will continue with Rocephin 1 g IV every 24 hours -We have also initiated azithromycin 500 mg IV every 24 hours -We will continue to monitor with daily CBC 3. Urinary tract infection -We will treat with the same antibiotics that we are using for #2 as they can be used to cover UTIs as well 4. Hypokalemia -The patient was given IV potassium chloride and oral, both 40 mg each, we will continue to monitor potassium levels with daily CMP 5. Hypomagnesemia -The patient has been given a 2 g IV loading dose of magnesium sulfate, we will continue to monitor magnesium levels and replete as needed 6. CODI -The patient was given a bolus of normal saline in the emergency department, we will continue to monitor kidney status through daily CMP 7. Past medical history of anxiety, depression, hypertension, and chronic angina -Continue with home dosages of lisinopril, bupropion, fluoxetine, Plavix, and isosorbide dinitrate <Perfecto Diaz - Last Filed: 05/17/21 20:32> H&P History of Present Illness - General Admit Problem/Dx: Admission Diagnosis/Problem Admission Diagnosis/Problem Pneumonia Exam - Vital Signs Vital Signs: Last Vital Signs Temp 96.7 F L 05/17/21 15:23 Pulse 101 H 05/17/21 15:23 Resp 19 05/17/21 15:23 BP 96/59 L 05/17/21 15:23 Pulse Ox 89 L 05/17/21 15:23 - Patient Data Lab Results Last 24 hrs: Laboratory Results - last 24 hr 05/16/21 05/17/21 05/17/21 Range/Units 21:08 01:28 06:45 WBC 23.48 H (4.0-11.0) K/uL RBC 5.52 (4.30-5.90) M/uL Hgb 15.0 (12.0-16.0) g/dL Hct 44.3 (36.0-46.0) % MCV 80.3 (80.0-98.0) fL MCH 27.2 (27.0-32.0) pg MCHC 33.9 (31.0-37.0) g/dL RDW Std Deviation 45.5 (28.0-62.0) fl RDW Coeff of Oscar 15 (11.0-15.0) % Plt Count 205 (150-400) K/uL MPV 11.00 (7.40-12.00) fL Add Manual Diff YES Neutrophils % (Manual) 72 (48.0-80.0) % Band Neutrophils % 20 % Lymphocytes % (Manual) 2 L (16.0-40.0) % Monocytes % (Manual) 6 (0.0-15.0) % Nucleated RBC % 0.0 /100WBC Absolute Seg Neuts 16.9 H (1.4-5.7) Band Neutrophils # 4.7 Lymphocytes # (Manual) 0.5 L (0.6-2.4) Monocytes # (Manual) 1.4 H (0.0-0.8) Nucleated RBCs # 0 K/uL Sodium (136-145) mmol/L Potassium (3.5-5.1) mmol/L Chloride (98-107) mmol/L Carbon Dioxide (21.0-32.0) mmol/L BUN (7.0-18.0) mg/dL Creatinine (0.6-1.0) mg/dL Est Cr Clr Drug Dosing mL/min Estimated GFR (MDRD) ml/min Glucose (74-106) mg/dL POC Glucose 276 H (70-99) mg/dL Calcium (8.5-10.1) mg/dL Magnesium (1.8-2.4) mg/dL Total Bilirubin (0.2-1.0) mg/dL AST (15-37) IU/L ALT (14-63) IU/L Alkaline Phosphatase (46-116) U/L Troponin I 0.147 H* (0.000-0.056) ng/mL Total Protein (6.4-8.2) g/dL Albumin (3.4-5.0) g/dL Globulin (2.6-4.0) g/dL Albumin/Globulin Ratio (0.9-1.6) 05/17/21 05/17/21 Range/Units 06:45 06:45 WBC (4.0-11.0) K/uL RBC (4.30-5.90) M/uL Hgb (12.0-16.0) g/dL Hct (36.0-46.0) % MCV (80.0-98.0) fL MCH (27.0-32.0) pg MCHC (31.0-37.0) g/dL RDW Std Deviation (28.0-62.0) fl RDW Coeff of Oscar (11.0-15.0) % Plt Count (150-400) K/uL MPV (7.40-12.00) fL Add Manual Diff Neutrophils % (Manual) (48.0-80.0) % Band Neutrophils % % Lymphocytes % (Manual) (16.0-40.0) % Monocytes % (Manual) (0.0-15.0) % Nucleated RBC % /100WBC Absolute Seg Neuts (1.4-5.7) Band Neutrophils # Lymphocytes # (Manual) (0.6-2.4) Monocytes # (Manual) (0.0-0.8) Nucleated RBCs # K/uL Sodium 138 (136-145) mmol/L Potassium 3.3 L (3.5-5.1) mmol/L Chloride 102 (98-107) mmol/L Carbon Dioxide 27.7 (21.0-32.0) mmol/L BUN 25 H (7.0-18.0) mg/dL Creatinine 1.1 H (0.6-1.0) mg/dL Est Cr Clr Drug Dosing 48.31 mL/min Estimated GFR (MDRD) 48.8 ml/min Glucose 182 H (74-106) mg/dL POC Glucose (70-99) mg/dL Calcium 8.7 (8.5-10.1) mg/dL Magnesium 2.6 H (1.8-2.4) mg/dL Total Bilirubin 1.5 H (0.2-1.0) mg/dL AST 153 H (15-37) IU/L ALT 54 (14-63) IU/L Alkaline Phosphatase 120 H (46-116) U/L Troponin I (0.000-0.056) ng/mL Total Protein 6.2 L (6.4-8.2) g/dL Albumin 2.0 L (3.4-5.0) g/dL Globulin 4.2 H (2.6-4.0) g/dL Albumin/Globulin Ratio 0.5 L (0.9-1.6) Result Diagrams: 05/17/21 06:45 05/17/21 06:45 Yovany Results Last 24 hrs: Microbiology 05/16/21 10:57 Aerobic Blood Culture - Preliminary Blood - Venous - Lab Draw NO GROWTH AFTER 1 DAY Anaerobic Blood Culture - Preliminary NO GROWTH AFTER 1 DAY 05/16/21 10:35 Aerobic Blood Culture - Preliminary Blood - Venous NO GROWTH AFTER 1 DAY Anaerobic Blood Culture - Preliminary NO GROWTH AFTER 1 DAY Sepsis Event Note - Focused Exam Vital Signs: Vital Signs Temp Pulse Resp BP BP Pulse Ox 05/17/21 15:23 96.7 F L 101 H 19 96/59 L 89 L 05/17/21 12:00 96.6 F L 86 20 95/51 L 90 L 05/17/21 08:45 131/68 Problem List Initiated/Reviewed/Updated: Yes Orders Last 24hrs: Active Orders 24 hr Category Date Time Status CBC WITH AUTO DIFF [HEME] AM Lab 05/18/21 05:11 Ordered CBC WITH AUTO DIFF [HEME] AM Lab 05/19/21 05:11 Ordered CBC WITH AUTO DIFF [HEME] AM Lab 05/20/21 05:11 Ordered CMP [COMPREHENSIVE METABOLIC PN,CMP] [CHEM] AM Lab 05/18/21 05:11 Ordered CMP [COMPREHENSIVE METABOLIC PN,CMP] [CHEM] AM Lab 05/19/21 05:11 Ordered CMP [COMPREHENSIVE METABOLIC PN,CMP] [CHEM] AM Lab 05/20/21 05:11 Ordered Benzocaine/Cetylpyrd/Menthol [Cepacol Sore Throat] Med 05/17/21 13:11 Active 1 lozenge MUCMEM Q2HR PRN Clopidogrel [Plavix] Med 05/17/21 09:00 Active 75 mg PO DAILY FLUoxetine [PROzac] Med 05/17/21 09:00 Active 20 mg PO DAILY Isosorbide Mononitrate [Imdur] Med 05/17/21 10:01 Active 120 mg PO DAILY Remdesivir 100 mg Med 05/17/21 12:00 Active Sodium Chloride 0.9% [Normal Saline AdvBag] 100 ml IV Q24H buPROPion [Wellbutrin SR] Med 05/17/21 09:00 Active 300 mg PO DAILY dexAMETHasone Med 05/17/21 09:00 Active 6 mg PO DAILY lisinopriL [Prinivil] Med 05/17/21 09:00 Active 10 mg PO DAILY Medication Orders Albuterol/Ipratropium (Albuterol/Ipratropium 4 Gm Inhalation [place]) 1 gm INH Q4H PRN PRN Reason: Dyspnea Benzocaine/Menthol (Benzocaine/Cetylpyridinium/Menthol Lozenge) 1 lozenge MUCMEM Q2HR PRN PRN Reason: Sore Throat Last Admin: 05/17/21 13:39 Dose: 1 lozenge Documented by: JOHNSON Bupropion HCl (Bupropion 150 Mg Tab.Sr) 300 mg PO DAILY [facility] Last Admin: 05/17/21 08:45 Dose: 300 mg Documented by: JOHNSON Clopidogrel Bisulfate (Clopidogrel 75 Mg Tab) 75 mg PO DAILY [facility] Last Admin: 05/17/21 08:45 Dose: 75 mg Documented by: JOHNSON Dexamethasone (Dexamethasone 4 Mg Tab) 6 mg PO DAILY [facility] Last Admin: 05/17/21 08:44 Dose: 6 mg Documented by: JOHNSON Enoxaparin Sodium (Enoxaparin 40 Mg/0.4 Ml Syringe) 40 mg SUBCUT Q24H [facility] Last Admin: 05/17/21 15:22 Dose: 40 mg Documented by: Admin: 05/16/21 16:41 Dose: 40 mg Documented by: JOHNSON Fluoxetine HCl (Fluoxetine 20 Mg Cap) 20 mg PO DAILY [facility] Last Admin: 05/17/21 08:45 Dose: 20 mg Documented by: JOHNSON Guaifenesin (Guaifenesin 100 Mg/5 Ml Soln 5 Ml Ud Cup) 100 mg PO Q6H PRN PRN Reason: Cough Remdesivir 100 mg/ Sodium (Chloride) 100 mls @ 100 mls/hr IV Q24H [facility] Stop: 05/20/21 12:59 Last Admin: 05/17/21 12:34 Dose: 100 mls/hr Documented by: JOHNSON Azithromycin 500 mg/ Sodium (Chloride) 250 mls @ 250 mls/hr IV DAILY [facility] Last Admin: 05/17/21 08:42 Dose: 250 mls/hr Documented by: Infusion: 05/16/21 17:39 Dose: 250 mls/hr Documented by: Admin: 05/16/21 16:39 Dose: 250 mls/hr Documented by: JOHNSON Ceftriaxone Sodium/Dextrose (Rocephin In Dextrose,Iso-Osm 1 Gm/50 Ml) 50 mls @ 100 mls/hr IV Q24H [facility] Last Admin: 05/17/21 17:46 Dose: 100 mls/hr Documented by: Infusion: 05/16/21 18:41 Dose: 100 mls/hr Documented by: Admin: 05/16/21 18:11 Dose: 100 mls/hr Documented by: JOHNSON Isosorbide Mononitrate (Isosorbide Mononitrate 60 Mg Tab.Er) 120 mg PO DAILY [facility] Last Admin: 05/17/21 10:55 Dose: 120 mg Documented by: JOHNSON Lisinopril (Lisinopril 10 Mg Tab) 10 mg PO DAILY [facility] Last Admin: 05/17/21 08:45 Dose: 10 mg Documented by: JOHNSON Pantoprazole Sodium (Pantoprazole 40 Mg/10 Ml Syringe) 40 mg IVPUSH DAILY [facility] Last Admin: 05/17/21 08:38 Dose: 40 mg Documented by: Admin: 05/16/21 16:36 Dose: 40 mg Documented by: JOHNSON Assessment/Plan Comment:: I agree with the above assessment and plan.
[2021-05-16] MEDS: Pantoprazole 40 MG/10 ML Syringe IVPUSH SCH (16:36)
[2021-05-16] MEDS: Azithromycin 500 MG in Sodium Chloride 0.9% 250 ML IV SCH (16:39)
[2021-05-16] MEDS: Enoxaparin 40 MG/0.4 ML Syringe SUBCUT SCH (16:41)
[2021-05-17 08:08] LABS: CARBON DIOXIDE,CO2 27.7 mmol/L (21.0-32.0); POTASSIUM,K 3.3 mmol/L (3.5-5.1)
[2021-05-17] MEDS: Pantoprazole 40 MG/10 ML Syringe IVPUSH SCH (08:38)
[2021-05-17] MEDS: Azithromycin 500 MG in Sodium Chloride 0.9% 250 ML IV SCH (08:42)
[2021-05-17] MEDS: Dexamethasone 4 MG Tab PO SCH (08:44)
[2021-05-17] MEDS: Clopidogrel 75 MG Tab PO SCH (08:45)
[2021-05-17] MEDS: FLUoxetine 20 MG Cap PO SCH (08:45)
[2021-05-17] MEDS: Lisinopril 10 MG Tab PO SCH (08:45)
[2021-05-17] MEDS: buPROPion 150 MG Tab.SR PO SCH (08:45)
[2021-05-17] MEDS ORDERED: Non-Formulary Medication 1 Each (Isosorbide Mononitrate [Isosorbide Mononitrate Er] 120 MG PO SCH (09:00)
[2021-05-17] MEDS ORDERED: Potassium Chloride 20 MEQ Tab.ER PO ONE (10:03)
[2021-05-17] MEDS: Isosorbide Mononitrate 60 MG Tab.ER PO SCH (10:55)
--- NOTE | 2021-05-17 11:58 | PCM.PN ---
<Cheryl Chun - Last Filed: 05/17/21 12:05> - General Info Date of Service: 05/17/21 Subjective Update: The patient is a 70-year-old female, on day 2 of service, who has a significant past medical history of chronic obstructive pulmonary disease without any home oxygen, GERD, hypertension, hyperlipidemia, peripheral arterial disease, anxiety, depression, bipolar disorder, past addiction to narcotics, lung cancer status post partial resection, breast cancer, and chronic angina, who was admitted to the medical floor due to COVID-19 pneumonia, bacterial pneumonia, and urinary tract infection. Upon interview with the patient today, she is much less confused and alert and can give a full history on how she feels as compared to yesterday. She admits that her cough has resolved but she still has shortness of breath. She is saturating 94% on 3 L of oxygen. She is eating and drinking and has a healthy appetite. She denies any chest pain, palpitations, abdominal pain, nausea, vomiting, fever, or any issues with urination and/or defecation. Her troponin levels were elevated but are trending downwards. Her potassium levels are still low and she will be supplied with oral potassium chlo ride 40 mEq. Her magnesium levels which were initially low have now gone to the higher side after being supplied a 2 g IV loading dose of magnesium sulfate yesterday. The patient has no other health concerns at this time. - Review of Systems General: Reports: Fatigue. Denies: Fever, Weakness HEENT: Denies: Headaches, Sore Throat Pulmonary: Reports: Shortness of Breath. Denies: Cough Cardiovascular: Denies: Chest Pain, Palpitations Gastrointestinal: Denies: Abdominal Pain, Nausea, Vomiting Genitourinary: Denies: Dysuria - Patient Data Vitals - Most Recent: Last Vital Signs Temp 96.4 F L 05/17/21 08:00 Pulse 78 05/17/21 08:00 Resp 18 05/17/21 08:00 BP 131/68 05/17/21 08:45 Pulse Ox 94 L 05/17/21 08:00 Weight - Most Recent: 172 lb I&O - Last 24 Hours: Intake & Output 05/16/21 05/17/21 05/17/21 22:59 06:59 14:59 Intake Total 1350 820 Output Total 800 Balance 1350 20 Lab Results Last 24 Hours: Laboratory Results - last 24 hr 05/16/21 05/16/21 05/17/21 Range/Units 15:44 21:08 01:28 WBC (4.0-11.0) K/uL RBC (4.30-5.90) M/uL Hgb (12.0-16.0) g/dL Hct (36.0-46.0) % MCV (80.0-98.0) fL MCH (27.0-32.0) pg MCHC (31.0-37.0) g/dL RDW Std Deviation (28.0-62.0) fl RDW Coeff of Oscar (11.0-15.0) % Plt Count (150-400) K/uL MPV (7.40-12.00) fL Add Manual Diff Neutrophils % (Manual) (48.0-80.0) % Band Neutrophils % % Lymphocytes % (Manual) (16.0-40.0) % Monocytes % (Manual) (0.0-15.0) % Nucleated RBC % /100WBC Absolute Seg Neuts (1.4-5.7) Band Neutrophils # Lymphocytes # (Manual) (0.6-2.4) Monocytes # (Manual) (0.0-0.8) Nucleated RBCs # K/uL Sodium (136-145) mmol/L Potassium (3.5-5.1) mmol/L Chloride (98-107) mmol/L Carbon Dioxide (21.0-32.0) mmol/L BUN (7.0-18.0) mg/dL Creatinine (0.6-1.0) mg/dL Est Cr Clr Drug Dosing mL/min Estimated GFR (MDRD) ml/min Glucose (74-106) mg/dL POC Glucose 276 H (70-99) mg/dL Calcium (8.5-10.1) mg/dL Magnesium (1.8-2.4) mg/dL Total Bilirubin (0.2-1.0) mg/dL AST (15-37) IU/L ALT (14-63) IU/L Alkaline Phosphatase (46-116) U/L Troponin I 0.161 H* 0.147 H* (0.000-0.056) ng/mL Total Protein (6.4-8.2) g/dL Albumin (3.4-5.0) g/dL Globulin (2.6-4.0) g/dL Albumin/Globulin Ratio (0.9-1.6) 05/17/21 05/17/21 05/17/21 Range/Units 06:45 06:45 06:45 WBC 23.48 H (4.0-11.0) K/uL RBC 5.52 (4.30-5.90) M/uL Hgb 15.0 (12.0-16.0) g/dL Hct 44.3 (36.0-46.0) % MCV 80.3 (80.0-98.0) fL MCH 27.2 (27.0-32.0) pg MCHC 33.9 (31.0-37.0) g/dL RDW Std Deviation 45.5 (28.0-62.0) fl RDW Coeff of Oscar 15 (11.0-15.0) % Plt Count 205 (150-400) K/uL MPV 11.00 (7.40-12.00) fL Add Manual Diff YES Neutrophils % (Manual) 72 (48.0-80.0) % Band Neutrophils % 20 % Lymphocytes % (Manual) 2 L (16.0-40.0) % Monocytes % (Manual) 6 (0.0-15.0) % Nucleated RBC % 0.0 /100WBC Absolute Seg Neuts 16.9 H (1.4-5.7) Band Neutrophils # 4.7 Lymphocytes # (Manual) 0.5 L (0.6-2.4) Monocytes # (Manual) 1.4 H (0.0-0.8) Nucleated RBCs # 0 K/uL Sodium 138 (136-145) mmol/L Potassium 3.3 L (3.5-5.1) mmol/L Chloride 102 (98-107) mmol/L Carbon Dioxide 27.7 (21.0-32.0) mmol/L BUN 25 H (7.0-18.0) mg/dL Creatinine 1.1 H (0.6-1.0) mg/dL Est Cr Clr Drug Dosing 48.31 mL/min Estimated GFR (MDRD) 48.8 ml/min Glucose 182 H (74-106) mg/dL POC Glucose (70-99) mg/dL Calcium 8.7 (8.5-10.1) mg/dL Magnesium 2.6 H (1.8-2.4) mg/dL Total Bilirubin 1.5 H (0.2-1.0) mg/dL AST 153 H (15-37) IU/L ALT 54 (14-63) IU/L Alkaline Phosphatase 120 H (46-116) U/L Troponin I (0.000-0.056) ng/mL Total Protein 6.2 L (6.4-8.2) g/dL Albumin 2.0 L (3.4-5.0) g/dL Globulin 4.2 H (2.6-4.0) g/dL Albumin/Globulin Ratio 0.5 L (0.9-1.6) Yovany Results Last 24 Hours: Microbiology 05/16/21 10:57 Aerobic Blood Culture - Preliminary Blood - Venous - Lab Draw NO GROWTH AFTER 1 DAY Anaerobic Blood Culture - Preliminary NO GROWTH AFTER 1 DAY 05/16/21 10:35 Aerobic Blood Culture - Preliminary Blood - Venous NO GROWTH AFTER 1 DAY Anaerobic Blood Culture - Preliminary NO GROWTH AFTER 1 DAY Med Orders - Current: Current Medications Albuterol/Ipratropium (Albuterol/Ipratropium 4 Gm Inhalation [place]) 1 gm INH Q4H PRN PRN Reason: Dyspnea Bupropion HCl (Bupropion 150 Mg Tab.Sr) 300 mg PO DAILY [facility] [place] Last Admin: 05/17/21 08:45 Dose: 300 mg Documented by: Clopidogrel Bisulfate (Clopidogrel 75 Mg Tab) 75 mg PO DAILY [facility] [place] Last Admin: 05/17/21 08:45 Dose: 75 mg Documented by: Dexamethasone (Dexamethasone 4 Mg Tab) 6 mg PO DAILY [facility] [place] Last Admin: 05/17/21 08:44 Dose: 6 mg Documented by: Enoxaparin Sodium (Enoxaparin 40 Mg/0.4 Ml Syringe) 40 mg SUBCUT Q24H [facility] [place] Last Admin: 05/16/21 16:41 Dose: 40 mg Documented by: Fluoxetine HCl (Fluoxetine 20 Mg Cap) 20 mg PO DAILY [facility] [place] Last Admin: 05/17/21 08:45 Dose: 20 mg Documented by: Guaifenesin (Guaifenesin 100 Mg/5 Ml Soln 5 Ml Ud Cup) 100 mg PO Q6H PRN PRN Reason: Cough Remdesivir 100 mg/ Sodium (Chloride) 100 mls @ 100 mls/hr IV Q24H [facility] [place] Stop: 05/20/21 12:59 Azithromycin 500 mg/ Sodium (Chloride) 250 mls @ 250 mls/hr IV DAILY [facility] [place] Last Admin: 05/17/21 08:42 Dose: 250 mls/hr Documented by: Ceftriaxone Sodium/Dextrose (Rocephin In Dextrose,Iso-Osm 1 Gm/50 Ml) 50 mls @ 100 mls/hr IV Q24H [facility] [place] Last Admin: 05/16/21 18:11 Dose: 100 mls/hr Documented by: Isosorbide Mononitrate (Isosorbide Mononitrate 60 Mg Tab.Er) 120 mg PO DAILY [facility] [place] Last Admin: 05/17/21 10:55 Dose: 120 mg Documented by: Lisinopril (Lisinopril 10 Mg Tab) 10 mg PO DAILY [facility] [place] Last Admin: 05/17/21 08:45 Dose: 10 mg Documented by: Pantoprazole Sodium (Pantoprazole 40 Mg/10 Ml Syringe) 40 mg IVPUSH DAILY [facility] [place] Last Admin: 05/17/21 08:38 Dose: 40 mg Documented by: Discontinued Medications Acetaminophen (Acetaminophen 500 Mg Tab) 1,000 mg PO ONETIME ONE Stop: 05/16/21 10:01 Last Admin: 05/16/21 10:11 Dose: 1,000 mg Documented by: Albuterol/Ipratropium (Albuterol/Ipratropium 3.0-0.5 Mg/3 Ml Neb Soln) 3 ml NEB ONETIME ONE Stop: 05/16/21 09:59 Last Admin: 05/16/21 10:11 Dose: 3 ml Documented by: Aspirin (Aspirin 81 Mg Tab.Chew) 324 mg PO ONETIME ONE Stop: 05/16/21 11:02 Last Admin: 05/16/21 11:33 Dose: 324 mg Documented by: Cefepime HCl 2 gm/ Premix 50 mls @ 100 mls/hr IV ONETIME ONE Stop: 05/16/21 11:20 Last Admin: 05/16/21 11:33 Dose: 100 mls/hr Documented by: Potassium Chloride 40 meq/ (Premix) 100 mls @ 25 mls/hr IV ONETIME ONE Stop: 05/16/21 15:00 Last Admin: 05/16/21 12:38 Dose: 25 mls/hr Documented by: Sodium Chloride (Normal Saline) 1,000 mls @ 999 mls/hr IV .Bolus ONE Stop: 05/16/21 12:03 Last Admin: 05/16/21 11:33 Dose: 999 mls/hr Documented by: Remdesivir 200 mg/ Sodium (Chloride) 250 mls @ 250 mls/hr IV ONETIME ONE Stop: 05/16/21 11:39 Last Admin: 05/16/21 12:40 Dose: Not Given Documented by: Sodium Chloride (Normal Saline) 1,000 mls @ 100 mls/hr IV .BOLUS STANLEY Remdesivir 200 mg/ Sodium (Chloride) 250 mls @ 250 mls/hr IV ONETIME ONE Stop: 05/16/21 13:14 Last Admin: 05/16/21 12:39 Dose: 250 mls/hr Documented by: Sodium Chloride (Normal Saline) 1,000 mls @ 100 mls/hr IV NOW STA Stop: 05/17/21 01:18 Last Admin: 05/16/21 15:21 Dose: 100 mls/hr Documented by: Magnesium Sulfate 2 gm/ Premix 50 mls @ 12.5 mls/hr IV ONETIME ONE Stop: 05/16/21 19:19 Last Admin: 05/16/21 18:43 Dose: 12.5 mls/hr Documented by: Ceftriaxone Sodium 1 mg/ (Sodium Chloride) 50 mls @ 100 mls/hr IV Q24H [facility] [place] Last Admin: 05/16/21 18:14 Dose: Not Given Documented by: Iopamidol (Iopamidol 755 Mg/Ml 500 Ml Multipack Bottle) 100 ml IVPUSH ONETIME ONE Stop: 05/16/21 12:54 Last Admin: 05/16/21 12:53 Dose: 100 ml Documented by: Methylprednisolone Sodium Succinate (Methylprednisolone Sodium Succinate 125 Mg/2 Ml Sdv) 125 mg IVPUSH ONETIME ONE Stop: 05/16/21 09:59 Last Admin: 05/16/21 10:11 Dose: 125 mg Documented by: Non-Formulary Medication (Isosorbide Mononitrate [Isosorbide Mononitrate Er]) 120 mg PO DAILY [facility] [place] Last Admin: 05/17/21 10:54 Dose: Not Given Documented by: Potassium Chloride (Potassium Chloride 20 Meq Tab.Er) 40 meq PO ONETIME ONE Stop: 05/16/21 15:21 Last Admin: 05/16/21 17:33 Dose: 40 meq Documented by: Potassium Chloride (Potassium Chloride 20 Meq Tab.Er) 40 meq PO ONETIME ONE Stop: 05/17/21 10:04 Last Admin: 05/17/21 10:54 Dose: 40 meq Documented by: - Exam General: Alert, Oriented, Cooperative HEENT: Mucous Membr. Moist/[place] Neck: Trachea Midline Lungs: Rhonchi Cardiovascular: Regular Rate, Regular Rhythm, No Murmurs GI/Abdominal Exam: Normal Bowel Sounds, Soft, Non-Tender - Patient Data Lab Results Last 24 hrs: Laboratory Results - last 24 hr 05/16/21 05/16/21 05/17/21 Range/Units 15:44 21:08 01:28 WBC (4.0-11.0) K/uL RBC (4.30-5.90) M/uL Hgb (12.0-16.0) g/dL Hct (36.0-46.0) % MCV (80.0-98.0) fL MCH (27.0-32.0) pg MCHC (31.0-37.0) g/dL RDW Std Deviation (28.0-62.0) fl RDW Coeff of Oscar (11.0-15.0) % Plt Count (150-400) K/uL MPV (7.40-12.00) fL Add Manual Diff Neutrophils % (Manual) (48.0-80.0) % Band Neutrophils % % Lymphocytes % (Manual) (16.0-40.0) % Monocytes % (Manual) (0.0-15.0) % Nucleated RBC % /100WBC Absolute Seg Neuts (1.4-5.7) Band Neutrophils # Lymphocytes # (Manual) (0.6-2.4) Monocytes # (Manual) (0.0-0.8) Nucleated RBCs # K/uL Sodium (136-145) mmol/L Potassium (3.5-5.1) mmol/L Chloride (98-107) mmol/L Carbon Dioxide (21.0-32.0) mmol/L BUN (7.0-18.0) mg/dL Creatinine (0.6-1.0) mg/dL Est Cr Clr Drug Dosing mL/min Estimated GFR (MDRD) ml/min Glucose (74-106) mg/dL POC Glucose 276 H (70-99) mg/dL Calcium (8.5-10.1) mg/dL Magnesium (1.8-2.4) mg/dL Total Bilirubin (0.2-1.0) mg/dL AST (15-37) IU/L ALT (14-63) IU/L Alkaline Phosphatase (46-116) U/L Troponin I 0.161 H* 0.147 H* (0.000-0.056) ng/mL Total Protein (6.4-8.2) g/dL Albumin (3.4-5.0) g/dL Globulin (2.6-4.0) g/dL Albumin/Globulin Ratio (0.9-1.6) 05/17/21 05/17/21 05/17/21 Range/Units 06:45 06:45 06:45 WBC 23.48 H (4.0-11.0) K/uL RBC 5.52 (4.30-5.90) M/uL Hgb 15.0 (12.0-16.0) g/dL Hct 44.3 (36.0-46.0) % MCV 80.3 (80.0-98.0) fL MCH 27.2 (27.0-32.0) pg MCHC 33.9 (31.0-37.0) g/dL RDW Std Deviation 45.5 (28.0-62.0) fl RDW Coeff of Oscar 15 (11.0-15.0) % Plt Count 205 (150-400) K/uL MPV 11.00 (7.40-12.00) fL Add Manual Diff YES Neutrophils % (Manual) 72 (48.0-80.0) % Band Neutrophils % 20 % Lymphocytes % (Manual) 2 L (16.0-40.0) % Monocytes % (Manual) 6 (0.0-15.0) % Nucleated RBC % 0.0 /100WBC Absolute Seg Neuts 16.9 H (1.4-5.7) Band Neutrophils # 4.7 Lymphocytes # (Manual) 0.5 L (0.6-2.4) Monocytes # (Manual) 1.4 H (0.0-0.8) Nucleated RBCs # 0 K/uL Sodium 138 (136-145) mmol/L Potassium 3.3 L (3.5-5.1) mmol/L Chloride 102 (98-107) mmol/L Carbon Dioxide 27.7 (21.0-32.0) mmol/L BUN 25 H (7.0-18.0) mg/dL Creatinine 1.1 H (0.6-1.0) mg/dL Est Cr Clr Drug Dosing 48.31 mL/min Estimated GFR (MDRD) 48.8 ml/min Glucose 182 H (74-106) mg/dL POC Glucose (70-99) mg/dL Calcium 8.7 (8.5-10.1) mg/dL Magnesium 2.6 H (1.8-2.4) mg/dL Total Bilirubin 1.5 H (0.2-1.0) mg/dL AST 153 H (15-37) IU/L ALT 54 (14-63) IU/L Alkaline Phosphatase 120 H (46-116) U/L Troponin I (0.000-0.056) ng/mL Total Protein 6.2 L (6.4-8.2) g/dL Albumin 2.0 L (3.4-5.0) g/dL Globulin 4.2 H (2.6-4.0) g/dL Albumin/Globulin Ratio 0.5 L (0.9-1.6) Result Diagrams: 05/17/21 06:45 05/17/21 06:45 Yovany Results Last 24 hrs: Microbiology 05/16/21 10:57 Aerobic Blood Culture - Preliminary Blood - Venous - Lab Draw NO GROWTH AFTER 1 DAY Anaerobic Blood Culture - Preliminary NO GROWTH AFTER 1 DAY 05/16/21 10:35 Aerobic Blood Culture - Preliminary Blood - Venous NO GROWTH AFTER 1 DAY Anaerobic Blood Culture - Preliminary NO GROWTH AFTER 1 DAY Sepsis Event Note - Evaluation Sepsis Screening Result: Sepsis Risk - Focused Exam Vital Signs: Vital Signs Temp Pulse Resp BP BP Pulse Ox 05/17/21 08:45 131/68 05/17/21 08:00 96.4 F L 78 18 131/68 94 L 05/17/21 04:00 95.7 F L 70 20 136/60 96 05/17/21 00:10 70 94 L 05/17/21 00:00 78 20 109/70 95 - Problem List & Annotations (1) Bacterial pneumonia SNOMED Code(s): 01999119 Code(s): J15.9 - UNSPECIFIED BACTERIAL PNEUMONIA Status: Acute Current Visit: Yes (2) COVID-19 SNOMED Code(s): 286477822 Code(s): U07.1 - COVID-19 Status: Acute Current Visit: Yes (3) UTI (urinary tract infection) SNOMED Code(s): 60365914 Code(s): N39.0 - URINARY TRACT INFECTION, SITE NOT SPECIFIED Status: Acute Current Visit: Yes (4) HTN (hypertension) SNOMED Code(s): 13892942 Code(s): I10 - ESSENTIAL (PRIMARY) HYPERTENSION Status: Acute Current Visit: Yes (5) Depression SNOMED Code(s): 64531512 Code(s): F32.A - DEPRESSION, UNSPECIFIED Status: Acute Current Visit: Yes (6) Chronic stable angina SNOMED Code(s): 707492385 Code(s): I20.8 - OTHER FORMS OF ANGINA PECTORIS Status: Acute Current Visit: Yes (7) Anxiety SNOMED Code(s): 58088674 Code(s): F41.9 - ANXIETY DISORDER, UNSPECIFIED Status: Acute Current Visit: Yes (8) Hypokalemia SNOMED Code(s): 65393331 Code(s): E87.6 - HYPOKALEMIA Status: Acute Current Visit: Yes - Problem List Review Problem List Initiated/Reviewed/Updated: Yes - My Orders Last 24 Hours: My Active Orders 05/16/21 15:28 RT Post Treatment Assessment [RC] Click to Edit RT Pre-Treatment Assessment [RC] Click to Edit Albuterol/Ipratropium [Combivent Respimat] 1 gm INH Q4H PRN guaiFENesin [Robitussin] 100 mg PO Q6H PRN 05/16/21 15:30 Enoxaparin [Lovenox] 40 mg SUBCUT Q24H Pantoprazole [ProTONIX] 40 mg IVPUSH DAILY 05/16/21 15:45 Azithromycin [Zithromax] 500 mg Sodium Chloride 0.9% [Normal Saline AdvBag] 250 ml IV DAILY 05/16/21 Dinner Regular Diet [DIET] 05/16/21 18:00 cefTRIAXone [Rocephin in Dextrose,Iso-Osm 1 GM/50 ML] 50 ml IV Q24H 05/17/21 09:00 Clopidogrel [Plavix] 75 mg PO DAILY FLUoxetine [PROzac] 20 mg PO DAILY buPROPion [Wellbutrin SR] 300 mg PO DAILY dexAMETHasone 6 mg PO DAILY lisinopriL [Prinivil] 10 mg PO DAILY 05/17/21 10:01 Isosorbide Mononitrate [Imdur] 120 mg PO DAILY 05/17/21 12:00 Remdesivir 100 mg Sodium Chloride 0.9% [Normal Saline AdvBag] 100 ml IV Q24H 05/18/21 05:11 CBC WITH AUTO DIFF [HEME] AM CMP [COMPREHENSIVE METABOLIC PN,CMP] [CHEM] AM 05/19/21 05:11 CBC WITH AUTO DIFF [HEME] AM CMP [COMPREHENSIVE METABOLIC PN,CMP] [CHEM] AM 05/20/21 05:11 CBC WITH AUTO DIFF [HEME] AM CMP [COMPREHENSIVE METABOLIC PN,CMP] [CHEM] AM - Plan Plan:: 1. COVID-19 pneumonia -The patient is saturating 94% while being on 3 L of oxygen, continue to wean as appropriate -Continue with remdesivir 100 mg per IV route once a day, 4 bags collectively -Continue with dexamethasone per oral route 6 mg daily -For shortness of breath, continue Combivent -For cough, continue Robitussin -Incentive spirometry 2. Bacterial pneumonia -Continue with Rocephin 1 g IV every 24 hours -Continue with azithromycin 500 mg IV every 24 hours -We will continue to monitor with daily CBC 3. Urinary tract infection -Treat as per #2 4. Hypokalemia -Patient was given oral potassium chloride 40 mEq, we will continue to monitor potassium levels with daily CMP 5. Hypomagnesemia -Magnesium levels are now elevated, continue to monitor levels 6. Past medical history of anxiety, depression, hypertension, and chronic ang ragini -Continue with home dosages of lisinopril, bupropion, fluoxetine, Plavix, and isosorbide dinitrate <Perfecto Diaz - Last Filed: 05/17/21 14:08> - Patient Data Vitals - Most Recent: Last Vital Signs Temp 96.6 F L 05/17/21 12:00 Pulse 86 05/17/21 12:00 Resp 20 05/17/21 12:00 BP 95/51 L 05/17/21 12:00 Pulse Ox 90 L 05/17/21 12:00 I&O - Last 24 Hours: Intake & Output 05/16/21 05/17/21 05/17/21 22:59 06:59 14:59 Intake Total 1350 820 Output Total 800 Balance 1350 20 Lab Results Last 24 Hours: Laboratory Results - last 24 hr 05/16/21 05/16/21 05/17/21 Range/Units 15:44 21:08 01:28 WBC (4.0-11.0) K/uL RBC (4.30-5.90) M/uL Hgb (12.0-16.0) g/dL Hct (36.0-46.0) % MCV (80.0-98.0) fL MCH (27.0-32.0) pg MCHC (31.0-37.0) g/dL RDW Std Deviation (28.0-62.0) fl RDW Coeff of Oscar (11.0-15.0) % Plt Count (150-400) K/uL MPV (7.40-12.00) fL Add Manual Diff Neutrophils % (Manual) (48.0-80.0) % Band Neutrophils % % Lymphocytes % (Manual) (16.0-40.0) % Monocytes % (Manual) (0.0-15.0) % Nucleated RBC % /100WBC Absolute Seg Neuts (1.4-5.7) Band Neutrophils # Lymphocytes # (Manual) (0.6-2.4) Monocytes # (Manual) (0.0-0.8) Nucleated RBCs # K/uL Sodium (136-145) mmol/L Potassium (3.5-5.1) mmol/L Chloride (98-107) mmol/L Carbon Dioxide (21.0-32.0) mmol/L BUN (7.0-18.0) mg/dL Creatinine (0.6-1.0) mg/dL Est Cr Clr Drug Dosing mL/min Estimated GFR (MDRD) ml/min Glucose (74-106) mg/dL POC Glucose 276 H (70-99) mg/dL Calcium (8.5-10.1) mg/dL Magnesium (1.8-2.4) mg/dL Total Bilirubin (0.2-1.0) mg/dL AST (15-37) IU/L ALT (14-63) IU/L Alkaline Phosphatase (46-116) U/L Troponin I 0.161 H* 0.147 H* (0.000-0.056) ng/mL Total Protein (6.4-8.2) g/dL Albumin (3.4-5.0) g/dL Globulin (2.6-4.0) g/dL Albumin/Globulin Ratio (0.9-1.6) 05/17/21 05/17/21 05/17/21 Range/Units 06:45 06:45 06:45 WBC 23.48 H (4.0-11.0) K/uL RBC 5.52 (4.30-5.90) M/uL Hgb 15.0 (12.0-16.0) g/dL Hct 44.3 (36.0-46.0) % MCV 80.3 (80.0-98.0) fL MCH 27.2 (27.0-32.0) pg MCHC 33.9 (31.0-37.0) g/dL RDW Std Deviation 45.5 (28.0-62.0) fl RDW Coeff of Oscar 15 (11.0-15.0) % Plt Count 205 (150-400) K/uL MPV 11.00 (7.40-12.00) fL Add Manual Diff YES Neutrophils % (Manual) 72 (48.0-80.0) % Band Neutrophils % 20 % Lymphocytes % (Manual) 2 L (16.0-40.0) % Monocytes % (Manual) 6 (0.0-15.0) % Nucleated RBC % 0.0 /100WBC Absolute Seg Neuts 16.9 H (1.4-5.7) Band Neutrophils # 4.7 Lymphocytes # (Manual) 0.5 L (0.6-2.4) Monocytes # (Manual) 1.4 H (0.0-0.8) Nucleated RBCs # 0 K/uL Sodium 138 (136-145) mmol/L Potassium 3.3 L (3.5-5.1) mmol/L Chloride 102 (98-107) mmol/L Carbon Dioxide 27.7 (21.0-32.0) mmol/L BUN 25 H (7.0-18.0) mg/dL Creatinine 1.1 H (0.6-1.0) mg/dL Est Cr Clr Drug Dosing 48.31 mL/min Estimated GFR (MDRD) 48.8 ml/min Glucose 182 H (74-106) mg/dL POC Glucose (70-99) mg/dL Calcium 8.7 (8.5-10.1) mg/dL Magnesium 2.6 H (1.8-2.4) mg/dL Total Bilirubin 1.5 H (0.2-1.0) mg/dL AST 153 H (15-37) IU/L ALT 54 (14-63) IU/L Alkaline Phosphatase 120 H (46-116) U/L Troponin I (0.000-0.056) ng/mL Total Protein 6.2 L (6.4-8.2) g/dL Albumin 2.0 L (3.4-5.0) g/dL Globulin 4.2 H (2.6-4.0) g/dL Albumin/Globulin Ratio 0.5 L (0.9-1.6) Yovany Results Last 24 Hours: Microbiology 05/16/21 10:57 Aerobic Blood Culture - Preliminary Blood - Venous - Lab Draw NO GROWTH AFTER 1 DAY Anaerobic Blood Culture - Preliminary NO GROWTH AFTER 1 DAY 05/16/21 10:35 Aerobic Blood Culture - Preliminary Blood - Venous NO GROWTH AFTER 1 DAY Anaerobic Blood Culture - Preliminary NO GROWTH AFTER 1 DAY Med Orders - Current: Current Medications Albuterol/Ipratropium (Albuterol/Ipratropium 4 Gm Inhalation [place]) 1 gm INH Q4H PRN PRN Reason: Dyspnea Benzocaine/Menthol (Benzocaine/Cetylpyridinium/Menthol Lozenge) 1 lozenge MUCMEM Q2HR PRN PRN Reason: Sore Throat Last Admin: 05/17/21 13:39 Dose: 1 lozenge Documented by: Bupropion HCl (Bupropion 150 Mg Tab.Sr) 300 mg PO DAILY [facility] [place] Last Admin: 05/17/21 08:45 Dose: 300 mg Documented by: Clopidogrel Bisulfate (Clopidogrel 75 Mg Tab) 75 mg PO DAILY [facility] [place] Last Admin: 05/17/21 08:45 Dose: 75 mg Documented by: Dexamethasone (Dexamethasone 4 Mg Tab) 6 mg PO DAILY [facility] [place] Last Admin: 05/17/21 08:44 Dose: 6 mg Documented by: Enoxaparin Sodium (Enoxaparin 40 Mg/0.4 Ml Syringe) 40 mg SUBCUT Q24H [facility] [place] Last Admin: 05/16/21 16:41 Dose: 40 mg Documented by: Fluoxetine HCl (Fluoxetine 20 Mg Cap) 20 mg PO DAILY [facility] [place] Last Admin: 05/17/21 08:45 Dose: 20 mg Documented by: Guaifenesin (Guaifenesin 100 Mg/5 Ml Soln 5 Ml Ud Cup) 100 mg PO Q6H PRN PRN Reason: Cough Remdesivir 100 mg/ Sodium (Chloride) 100 mls @ 100 mls/hr IV Q24H [facility] [place] Stop: 05/20/21 12:59 Last Admin: 05/17/21 12:34 Dose: 100 mls/hr Documented by: Azithromycin 500 mg/ Sodium (Chloride) 250 mls @ 250 mls/hr IV DAILY [facility] [place] Last Admin: 05/17/21 08:42 Dose: 250 mls/hr Documented by: Ceftriaxone Sodium/Dextrose (Rocephin In Dextrose,Iso-Osm 1 Gm/50 Ml) 50 mls @ 100 mls/hr IV Q24H [facility] [place] Last Admin: 05/16/21 18:11 Dose: 100 mls/hr Documented by: Isosorbide Mononitrate (Isosorbide Mononitrate 60 Mg Tab.Er) 120 mg PO DAILY [facility] [place] Last Admin: 05/17/21 10:55 Dose: 120 mg Documented by: Lisinopril (Lisinopril 10 Mg Tab) 10 mg PO DAILY [facility] [place] Last Admin: 05/17/21 08:45 Dose: 10 mg Documented by: Pantoprazole Sodium (Pantoprazole 40 Mg/10 Ml Syringe) 40 mg IVPUSH DAILY [facility] [place] Last Admin: 05/17/21 08:38 Dose: 40 mg Documented by: Discontinued Medications Acetaminophen (Acetaminophen 500 Mg Tab) 1,000 mg PO ONETIME ONE Stop: 05/16/21 10:01 Last Admin: 05/16/21 10:11 Dose: 1,000 mg Documented by: Albuterol/Ipratropium (Albuterol/Ipratropium 3.0-0.5 Mg/3 Ml Neb Soln) 3 ml NEB ONETIME ONE Stop: 05/16/21 09:59 Last Admin: 05/16/21 10:11 Dose: 3 ml Documented by: Aspirin (Aspirin 81 Mg Tab.Chew) 324 mg PO ONETIME ONE Stop: 05/16/21 11:02 Last Admin: 05/16/21 11:33 Dose: 324 mg Documented by: Cefepime HCl 2 gm/ Premix 50 mls @ 100 mls/hr IV ONETIME ONE Stop: 05/16/21 11:20 Last Admin: 05/16/21 11:33 Dose: 100 mls/hr Documented by: Potassium Chloride 40 meq/ (Premix) 100 mls @ 25 mls/hr IV ONETIME ONE Stop: 05/16/21 15:00 Last Admin: 05/16/21 12:38 Dose: 25 mls/hr Documented by: Sodium Chloride (Normal Saline) 1,000 mls @ 999 mls/hr IV .Bolus ONE Stop: 05/16/21 12:03 Last Admin: 05/16/21 11:33 Dose: 999 mls/hr Documented by: Remdesivir 200 mg/ Sodium (Chloride) 250 mls @ 250 mls/hr IV ONETIME ONE Stop: 05/16/21 11:39 Last Admin: 05/16/21 12:40 Dose: Not Given Documented by: Sodium Chloride (Normal Saline) 1,000 mls @ 100 mls/hr IV .BOLUS [place] Remdesivir 200 mg/ Sodium (Chloride) 250 mls @ 250 mls/hr IV ONETIME ONE Stop: 05/16/21 13:14 Last Admin: 05/16/21 12:39 Dose: 250 mls/hr Documented by: Sodium Chloride (Normal Saline) 1,000 mls @ 100 mls/hr IV NOW STA Stop: 05/17/21 01:18 Last Admin: 05/16/21 15:21 Dose: 100 mls/hr Documented by: Magnesium Sulfate 2 gm/ Premix 50 mls @ 12.5 mls/hr IV ONETIME ONE Stop: 05/16/21 19:19 Last Admin: 05/16/21 18:43 Dose: 12.5 mls/hr Documented by: Ceftriaxone Sodium 1 mg/ (Sodium Chloride) 50 mls @ 100 mls/hr IV Q24H [facility] Last Admin: 05/16/21 18:14 Dose: Not Given Documented by: Iopamidol (Iopamidol 755 Mg/Ml 500 Ml Multipack Bottle) 100 ml IVPUSH ONETIME ONE Stop: 05/16/21 12:54 Last Admin: 05/16/21 12:53 Dose: 100 ml Documented by: Methylprednisolone Sodium Succinate (Methylprednisolone Sodium Succinate 125 Mg/2 Ml Sdv) 125 mg IVPUSH ONETIME ONE Stop: 05/16/21 09:59 Last Admin: 05/16/21 10:11 Dose: 125 mg Documented by: Non-Formulary Medication (Isosorbide Mononitrate [Isosorbide Mononitrate Er]) 120 mg PO DAILY [facility] Last Admin: 05/17/21 10:54 Dose: Not Given Documented by: Potassium Chloride (Potassium Chloride 20 Meq Tab.Er) 40 meq PO ONETIME ONE Stop: 05/16/21 15:21 Last Admin: 05/16/21 17:33 Dose: 40 meq Documented by: Potassium Chloride (Potassium Chloride 20 Meq Tab.Er) 40 meq PO ONETIME ONE Stop: 05/17/21 10:04 Last Admin: 05/17/21 10:54 Dose: 40 meq Documented by: - Patient Data Lab Results Last 24 hrs: Laboratory Results - last 24 hr 05/16/21 05/16/21 05/17/21 Range/Units 15:44 21:08 01:28 WBC (4.0-11.0) K/uL RBC (4.30-5.90) M/uL Hgb (12.0-16.0) g/dL Hct (36.0-46.0) % MCV (80.0-98.0) fL MCH (27.0-32.0) pg MCHC (31.0-37.0) g/dL RDW Std Deviation (28.0-62.0) fl RDW Coeff of Oscar (11.0-15.0) % Plt Count (150-400) K/uL MPV (7.40-12.00) fL Add Manual Diff Neutrophils % (Manual) (48.0-80.0) % Band Neutrophils % % Lymphocytes % (Manual) (16.0-40.0) % Monocytes % (Manual) (0.0-15.0) % Nucleated RBC % /100WBC Absolute Seg Neuts (1.4-5.7) Band Neutrophils # Lymphocytes # (Manual) (0.6-2.4) Monocytes # (Manual) (0.0-0.8) Nucleated RBCs # K/uL Sodium (136-145) mmol/L Potassium (3.5-5.1) mmol/L Chloride (98-107) mmol/L Carbon Dioxide (21.0-32.0) mmol/L BUN (7.0-18.0) mg/dL Creatinine (0.6-1.0) mg/dL Est Cr Clr Drug Dosing mL/min Estimated GFR (MDRD) ml/min Glucose (74-106) mg/dL POC Glucose 276 H (70-99) mg/dL Calcium (8.5-10.1) mg/dL Magnesium (1.8-2.4) mg/dL Total Bilirubin (0.2-1.0) mg/dL AST (15-37) IU/L ALT (14-63) IU/L Alkaline Phosphatase (46-116) U/L Troponin I 0.161 H* 0.147 H* (0.000-0.056) ng/mL Total Protein (6.4-8.2) g/dL Albumin (3.4-5.0) g/dL Globulin (2.6-4.0) g/dL Albumin/Globulin Ratio (0.9-1.6) 05/17/21 05/17/21 05/17/21 Range/Units 06:45 06:45 06:45 WBC 23.48 H (4.0-11.0) K/uL RBC 5.52 (4.30-5.90) M/uL Hgb 15.0 (12.0-16.0) g/dL Hct 44.3 (36.0-46.0) % MCV 80.3 (80.0-98.0) fL MCH 27.2 (27.0-32.0) pg MCHC 33.9 (31.0-37.0) g/dL RDW Std Deviation 45.5 (28.0-62.0) fl RDW Coeff of Oscar 15 (11.0-15.0) % Plt Count 205 (150-400) K/uL MPV 11.00 (7.40-12.00) fL Add Manual Diff YES Neutrophils % (Manual) 72 (48.0-80.0) % Band Neutrophils % 20 % Lymphocytes % (Manual) 2 L (16.0-40.0) % Monocytes % (Manual) 6 (0.0-15.0) % Nucleated RBC % 0.0 /100WBC Absolute Seg Neuts 16.9 H (1.4-5.7) Band Neutrophils # 4.7 Lymphocytes # (Manual) 0.5 L (0.6-2.4) Monocytes # (Manual) 1.4 H (0.0-0.8) Nucleated RBCs # 0 K/uL Sodium 138 (136-145) mmol/L Potassium 3.3 L (3.5-5.1) mmol/L Chloride 102 (98-107) mmol/L Carbon Dioxide 27.7 (21.0-32.0) mmol/L BUN 25 H (7.0-18.0) mg/dL Creatinine 1.1 H (0.6-1.0) mg/dL Est Cr Clr Drug Dosing 48.31 mL/min Estimated GFR (MDRD) 48.8 ml/min Glucose 182 H (74-106) mg/dL POC Glucose (70-99) mg/dL Calcium 8.7 (8.5-10.1) mg/dL Magnesium 2.6 H (1.8-2.4) mg/dL Total Bilirubin 1.5 H (0.2-1.0) mg/dL AST 153 H (15-37) IU/L ALT 54 (14-63) IU/L Alkaline Phosphatase 120 H (46-116) U/L Troponin I (0.000-0.056) ng/mL Total Protein 6.2 L (6.4-8.2) g/dL Albumin 2.0 L (3.4-5.0) g/dL Globulin 4.2 H (2.6-4.0) g/dL Albumin/Globulin Ratio 0.5 L (0.9-1.6) Result Diagrams: 05/17/21 06:45 05/17/21 06:45 Yovany Results Last 24 hrs: Microbiology 05/16/21 10:57 Aerobic Blood Culture - Preliminary Blood - Venous - Lab Draw NO GROWTH AFTER 1 DAY Anaerobic Blood Culture - Preliminary NO GROWTH AFTER 1 DAY 05/16/21 10:35 Aerobic Blood Culture - Preliminary Blood - Venous NO GROWTH AFTER 1 DAY Anaerobic Blood Culture - Preliminary NO GROWTH AFTER 1 DAY Sepsis Event Note - Focused Exam Vital Signs: Vital Signs Temp Pulse Resp BP BP Pulse Ox 05/17/21 12:00 96.6 F L 86 20 95/51 L 90 L 05/17/21 08:45 131/68 05/17/21 08:00 96.4 F L 78 18 131/68 94 L 05/17/21 04:00 95.7 F L 70 20 136/60 96 - My Orders Last 24 Hours: My Active Orders 05/16/21 13:23 Oxygen Therapy [RC] PRN VTE/DVT Education [RC] PER UNIT ROUTINE Vital Signs [RC] Q4H Resuscitation Status Routine 05/17/21 13:11 Benzocaine/Cetylpyrd/Menthol [Cepacol Sore Throat] 1 lozenge MUCMEM Q2HR PRN - Plan Plan:: I agree with the above assessment and plan.
[2021-05-17] MEDS: REMDESIVIR 100 MG in Sodium Chloride 0.9% 100 ML IV SCH (12:34)
[2021-05-17] MEDS ORDERED: Benzocaine/Cetylpyridinium/Menthol Lozenge MUCMEM PRN (13:11)
[2021-05-17] MEDS: Enoxaparin 40 MG/0.4 ML Syringe SUBCUT SCH (15:22)
[2021-05-17] MEDS: Acetaminophen 325 MG Tab PO PRN (21:38)
[2021-05-18] MEDS: guaiFENesin 100 MG/5 ML Soln 5 ML UD Cup PO PRN ×2 (00:44→05:11)
[2021-05-18 06:16] LABS: CARBON DIOXIDE,CO2 29.9 mmol/L (21.0-32.0); POTASSIUM,K 3.7 mmol/L (3.5-5.1)
[2021-05-18] MEDS: Pantoprazole 40 MG/10 ML Syringe IVPUSH SCH (08:19)
[2021-05-18] MEDS: Isosorbide Mononitrate 60 MG Tab.ER PO SCH (08:22)
[2021-05-18] MEDS: FLUoxetine 20 MG Cap PO SCH (08:22)
[2021-05-18] MEDS: Azithromycin 500 MG in Sodium Chloride 0.9% 250 ML IV SCH (08:23)
[2021-05-18] MEDS: Dexamethasone 4 MG Tab PO SCH (08:23)
[2021-05-18] MEDS: Clopidogrel 75 MG Tab PO SCH (08:25)
[2021-05-18] MEDS: Lisinopril 10 MG Tab PO SCH (08:26)
[2021-05-18] MEDS: buPROPion 150 MG Tab.SR PO SCH (08:27)
[2021-05-18] MEDS: REMDESIVIR 100 MG in Sodium Chloride 0.9% 100 ML IV SCH (12:15)
[2021-05-18] MEDS: Acetaminophen 325 MG Tab PO PRN ×2 (12:22→20:36)
--- NOTE | 2021-05-18 15:18 | PCM.PN ---
- General Info Date of Service: 05/18/21 - Review of Systems Systems Review Comment:: feeling better, more alert - Patient Data Vitals - Most Recent: Last Vital Signs Temp 35.9 C L 05/18/21 12:00 Pulse 86 05/18/21 12:00 Resp 19 05/18/21 12:00 BP 125/79 05/18/21 12:00 Pulse Ox 90 L 05/18/21 12:00 Weight - Most Recent: 78.018 kg I&O - Last 24 Hours: Intake & Output 05/18/21 05/18/21 05/18/21 06:59 14:59 22:59 Intake Total 650 Output Total 1100 Balance -450 Lab Results Last 24 Hours: Laboratory Results - last 24 hr 05/18/21 05/18/21 Range/Units 05:35 05:35 WBC 22.52 H (4.0-11.0) K/uL RBC 4.74 (4.30-5.90) M/uL Hgb 12.7 (12.0-16.0) g/dL Hct 37.8 (36.0-46.0) % MCV 79.7 L (80.0-98.0) fL MCH 26.8 L (27.0-32.0) pg MCHC 33.6 (31.0-37.0) g/dL RDW Std Deviation 45.4 (28.0-62.0) fl RDW Coeff of Oscar 16 H (11.0-15.0) % Plt Count 220 (150-400) K/uL MPV 10.70 (7.40-12.00) fL Neut % (Auto) 92.0 H (48.0-80.0) % Lymph % (Auto) 3.5 L (16.0-40.0) % [place] % (Auto) 4.4 (0.0-15.0) % Eos % (Auto) 0.0 (0.0-7.0) % Baso % (Auto) 0.1 (0.0-1.5) % Neut # (Auto) 20.7 H (1.4-5.7) K/uL Lymph # (Auto) 0.8 (0.6-2.4) K/uL [place] # (Auto) 1.0 H (0.0-0.8) K/uL Eos # (Auto) 0.0 (0.0-0.7) K/uL Baso # (Auto) 0.0 (0.0-0.1) K/uL Nucleated RBC % 0.0 /100WBC Nucleated RBCs # 0 K/uL Sodium 135 L (136-145) mmol/L Potassium 3.7 (3.5-5.1) mmol/L Chloride 99 (98-107) mmol/L Carbon Dioxide 29.9 (21.0-32.0) mmol/L BUN 24 H (7.0-18.0) mg/dL Creatinine 1.1 H (0.6-1.0) mg/dL Est Cr Clr Drug Dosing 48.31 mL/min Estimated GFR (MDRD) 48.8 ml/min Glucose 190 H (74-106) mg/dL Calcium 8.0 L (8.5-10.1) mg/dL Total Bilirubin 0.7 (0.2-1.0) mg/dL AST 91 H (15-37) IU/L ALT 46 (14-63) IU/L Alkaline Phosphatase 104 (46-116) U/L Total Protein 5.3 L (6.4-8.2) g/dL Albumin 2.1 L (3.4-5.0) g/dL Globulin 3.2 (2.6-4.0) g/dL Albumin/Globulin Ratio 0.7 L (0.9-1.6) Yovany Results Last 24 Hours: Microbiology 05/16/21 10:57 Aerobic Blood Culture - Preliminary Blood - Venous - Lab Draw NO GROWTH AFTER 2 DAYS Anaerobic Blood Culture - Preliminary NO GROWTH AFTER 2 DAYS 05/16/21 10:35 Aerobic Blood Culture - Preliminary Blood - Venous NO GROWTH AFTER 2 DAYS Anaerobic Blood Culture - Preliminary NO GROWTH AFTER 2 DAYS Med Orders - Current: Current Medications Acetaminophen (Acetaminophen 325 Mg Tab) 325 mg PO Q4H PRN PRN Reason: Pain and fever Last Admin: 05/18/21 12:22 Dose: 325 mg Documented by: Albuterol/Ipratropium (Albuterol/Ipratropium 4 Gm Inhalation [place]) 1 gm INH Q4H PRN PRN Reason: Dyspnea Last Admin: 05/18/21 02:30 Dose: 1 puff Documented by: Benzocaine/Menthol (Benzocaine/Cetylpyridinium/Menthol Lozenge) 1 lozenge MUCMEM Q2HR PRN PRN Reason: Sore Throat Last Admin: 05/17/21 13:39 Dose: 1 lozenge Documented by: Bupropion HCl (Bupropion 150 Mg Tab.Sr) 300 mg PO DAILY [facility] Last Admin: 05/18/21 08:27 Dose: 300 mg Documented by: Clopidogrel Bisulfate (Clopidogrel 75 Mg Tab) 75 mg PO DAILY [facility] Last Admin: 05/18/21 08:25 Dose: 75 mg Documented by: Dexamethasone (Dexamethasone 4 Mg Tab) 6 mg PO DAILY [facility] Last Admin: 05/18/21 08:23 Dose: 6 mg Documented by: Enoxaparin Sodium (Enoxaparin 40 Mg/0.4 Ml Syringe) 40 mg SUBCUT Q24H [facility] Last Admin: 05/17/21 15:22 Dose: 40 mg Documented by: Fluoxetine HCl (Fluoxetine 20 Mg Cap) 20 mg PO DAILY [facility] Last Admin: 05/18/21 08:22 Dose: 20 mg Documented by: Guaifenesin (Guaifenesin 100 Mg/5 Ml Soln 5 Ml Ud Cup) 100 mg PO Q6H PRN PRN Reason: Cough Last Admin: 05/18/21 05:11 Dose: 100 mg Documented by: Remdesivir 100 mg/ Sodium (Chloride) 100 mls @ 100 mls/hr IV Q24H [facility] Stop: 05/20/21 12:59 Last Admin: 05/18/21 12:15 Dose: 100 mls/hr Documented by: Azithromycin 500 mg/ Sodium (Chloride) 250 mls @ 250 mls/hr IV DAILY [facility] Last Admin: 05/18/21 08:23 Dose: 250 mls/hr Documented by: Ceftriaxone Sodium/Dextrose (Rocephin In Dextrose,Iso-Osm 1 Gm/50 Ml) 50 mls @ 100 mls/hr IV Q24H [facility] Last Admin: 05/17/21 17:46 Dose: 100 mls/hr Documented by: Isosorbide Mononitrate (Isosorbide Mononitrate 60 Mg Tab.Er) 120 mg PO DAILY [facility] Last Admin: 05/18/21 08:22 Dose: 120 mg Documented by: Lisinopril (Lisinopril 10 Mg Tab) 10 mg PO DAILY [facility] Last Admin: 05/18/21 08:26 Dose: 10 mg Documented by: Pantoprazole Sodium (Pantoprazole 40 Mg/10 Ml Syringe) 40 mg IVPUSH DAILY [facility] Last Admin: 05/18/21 08:19 Dose: 40 mg Documented by: Discontinued Medications Acetaminophen (Acetaminophen 500 Mg Tab) 1,000 mg PO ONETIME ONE Stop: 05/16/21 10:01 Last Admin: 05/16/21 10:11 Dose: 1,000 mg Documented by: Albuterol/Ipratropium (Albuterol/Ipratropium 3.0-0.5 Mg/3 Ml Neb Soln) 3 ml NEB ONETIME ONE Stop: 05/16/21 09:59 Last Admin: 05/16/21 10:11 Dose: 3 ml Documented by: Aspirin (Aspirin 81 Mg Tab.Chew) 324 mg PO ONETIME ONE Stop: 05/16/21 11:02 Last Admin: 05/16/21 11:33 Dose: 324 mg Documented by: Cefepime HCl 2 gm/ Premix 50 mls @ 100 mls/hr IV ONETIME ONE Stop: 05/16/21 11:20 Last Admin: 05/16/21 11:33 Dose: 100 mls/hr Documented by: Potassium Chloride 40 meq/ (Premix) 100 mls @ 25 mls/hr IV ONETIME ONE Stop: 05/16/21 15:00 Last Admin: 05/16/21 12:38 Dose: 25 mls/hr Documented by: Sodium Chloride (Normal Saline) 1,000 mls @ 999 mls/hr IV .Bolus ONE Stop: 05/16/21 12:03 Last Admin: 05/16/21 11:33 Dose: 999 mls/hr Documented by: Remdesivir 200 mg/ Sodium (Chloride) 250 mls @ 250 mls/hr IV ONETIME ONE Stop: 05/16/21 11:39 Last Admin: 05/16/21 12:40 Dose: Not Given Documented by: Sodium Chloride (Normal Saline) 1,000 mls @ 100 mls/hr IV .BOLUS [facility] Remdesivir 200 mg/ Sodium (Chloride) 250 mls @ 250 mls/hr IV ONETIME ONE Stop: 05/16/21 13:14 Last Admin: 05/16/21 12:39 Dose: 250 mls/hr Documented by: Sodium Chloride (Normal Saline) 1,000 mls @ 100 mls/hr IV NOW STA Stop: 05/17/21 01:18 Last Admin: 05/16/21 15:21 Dose: 100 mls/hr Documented by: Magnesium Sulfate 2 gm/ Premix 50 mls @ 12.5 mls/hr IV ONETIME ONE Stop: 05/16/21 19:19 Last Admin: 05/16/21 18:43 Dose: 12.5 mls/hr Documented by: Ceftriaxone Sodium 1 mg/ (Sodium Chloride) 50 mls @ 100 mls/hr IV Q24H [facility] Last Admin: 05/16/21 18:14 Dose: Not Given Documented by: Iopamidol (Iopamidol 755 Mg/Ml 500 Ml Multipack Bottle) 100 ml IVPUSH ONETIME ONE Stop: 05/16/21 12:54 Last Admin: 05/16/21 12:53 Dose: 100 ml Documented by: Methylprednisolone Sodium Succinate (Methylprednisolone Sodium Succinate 125 Mg/2 Ml Sdv) 125 mg IVPUSH ONETIME ONE Stop: 05/16/21 09:59 Last Admin: 05/16/21 10:11 Dose: 125 mg Documented by: Non-Formulary Medication (Isosorbide Mononitrate [Isosorbide Mononitrate Er]) 120 mg PO DAILY [facility] Last Admin: 05/17/21 10:54 Dose: Not Given Documented by: Potassium Chloride (Potassium Chloride 20 Meq Tab.Er) 40 meq PO ONETIME ONE Stop: 05/16/21 15:21 Last Admin: 05/16/21 17:33 Dose: 40 meq Documented by: Potassium Chloride (Potassium Chloride 20 Meq Tab.Er) 40 meq PO ONETIME ONE Stop: 05/17/21 10:04 Last Admin: 05/17/21 10:54 Dose: 40 meq Documented by: - Exam General: Alert, Oriented Lungs: Normal Respiratory Effort, Rhonchi Cardiovascular: Regular Rate, Regular Rhythm GI/Abdominal Exam: Normal Bowel Sounds, Soft, Non-Tender Extremities: Non-Tender, No Pedal Edema Skin: Warm, Dry, Intact Neurological: No New Focal Deficit - Patient Data Lab Results Last 24 hrs: Laboratory Results - last 24 hr 05/18/21 05/18/21 Range/Units 05:35 05:35 WBC 22.52 H (4.0-11.0) K/uL RBC 4.74 (4.30-5.90) M/uL Hgb 12.7 (12.0-16.0) g/dL Hct 37.8 (36.0-46.0) % MCV 79.7 L (80.0-98.0) fL MCH 26.8 L (27.0-32.0) pg MCHC 33.6 (31.0-37.0) g/dL RDW Std Deviation 45.4 (28.0-62.0) fl RDW Coeff of Oscar 16 H (11.0-15.0) % Plt Count 220 (150-400) K/uL MPV 10.70 (7.40-12.00) fL Neut % (Auto) 92.0 H (48.0-80.0) % Lymph % (Auto) 3.5 L (16.0-40.0) % [place] % (Auto) 4.4 (0.0-15.0) % Eos % (Auto) 0.0 (0.0-7.0) % Baso % (Auto) 0.1 (0.0-1.5) % Neut # (Auto) 20.7 H (1.4-5.7) K/uL Lymph # (Auto) 0.8 (0.6-2.4) K/uL [place] # (Auto) 1.0 H (0.0-0.8) K/uL Eos # (Auto) 0.0 (0.0-0.7) K/uL Baso # (Auto) 0.0 (0.0-0.1) K/uL Nucleated RBC % 0.0 /100WBC Nucleated RBCs # 0 K/uL Sodium 135 L (136-145) mmol/L Potassium 3.7 (3.5-5.1) mmol/L Chloride 99 (98-107) mmol/L Carbon Dioxide 29.9 (21.0-32.0) mmol/L BUN 24 H (7.0-18.0) mg/dL Creatinine 1.1 H (0.6-1.0) mg/dL Est Cr Clr Drug Dosing 48.31 mL/min Estimated GFR (MDRD) 48.8 ml/min Glucose 190 H (74-106) mg/dL Calcium 8.0 L (8.5-10.1) mg/dL Total Bilirubin 0.7 (0.2-1.0) mg/dL AST 91 H (15-37) IU/L ALT 46 (14-63) IU/L Alkaline Phosphatase 104 (46-116) U/L Total Protein 5.3 L (6.4-8.2) g/dL Albumin 2.1 L (3.4-5.0) g/dL Globulin 3.2 (2.6-4.0) g/dL Albumin/Globulin Ratio 0.7 L (0.9-1.6) Result Diagrams: 05/18/21 05:35 05/18/21 05:35 Yovany Results Last 24 hrs: Microbiology 05/16/21 10:57 Aerobic Blood Culture - Preliminary Blood - Venous - Lab Draw NO GROWTH AFTER 2 DAYS Anaerobic Blood Culture - Preliminary NO GROWTH AFTER 2 DAYS 05/16/21 10:35 Aerobic Blood Culture - Preliminary Blood - Venous NO GROWTH AFTER 2 DAYS Anaerobic Blood Culture - Preliminary NO GROWTH AFTER 2 DAYS Sepsis Event Note - Evaluation Sepsis Screening Result: No Definite Risk - Focused Exam Vital Signs: Vital Signs Temp Pulse Resp BP BP Pulse Ox 05/18/21 12:00 35.9 C L 86 19 125/79 90 L 05/18/21 08:26 152/95 H 05/18/21 08:00 36.0 C L 88 18 152/95 H 90 L 05/18/21 04:00 36.0 C L 85 20 144/68 H 94 L - Problem List & Annotations (1) Bacterial pneumonia SNOMED Code(s): 02561124 Code(s): J15.9 - UNSPECIFIED BACTERIAL PNEUMONIA Status: Acute Current Visit: Yes (2) COVID-19 SNOMED Code(s): 210896496 Code(s): U07.1 - COVID-19 Status: Acute Current Visit: Yes - Problem List Review Problem List Initiated/Reviewed/Updated: Yes - Assessment Assessment:: 70 yo female admitted for COVID-19 with hypoxia and suspected bacterial pneumonia Hypoxia: on 2 L NC COVID: continue dexamethasone, remdesivir Pneumonia: Rocephin and azithromycin Lovenox for DVT prophylaxis
[2021-05-18] MEDS: Enoxaparin 40 MG/0.4 ML Syringe SUBCUT SCH (15:22)
[2021-05-19 07:05] LABS: BLOOD UREA NITROGEN,BUN 19 mg/dL (7.0-18.0); CARBON DIOXIDE,CO2 31.5 mmol/L (21.0-32.0); CHLORIDE,CL 102 mmol/L (98-107); GLUCOSE RANDOM 160 mg/dL (74-106); POTASSIUM,K 3.6 mmol/L (3.5-5.1); SODIUM,NA 138 mmol/L (136-145)
[2021-05-19] MEDS: Dexamethasone 4 MG Tab PO SCH (08:35)
[2021-05-19] MEDS: Isosorbide Mononitrate 60 MG Tab.ER PO SCH (08:36)
[2021-05-19] MEDS: buPROPion 150 MG Tab.SR PO SCH (08:37)
[2021-05-19] MEDS: FLUoxetine 20 MG Cap PO SCH (08:39)
[2021-05-19] MEDS: Lisinopril 10 MG Tab PO SCH (08:39)
[2021-05-19] MEDS: Clopidogrel 75 MG Tab PO SCH (08:40)
[2021-05-19] MEDS: Pantoprazole 40 MG/10 ML Syringe IVPUSH SCH (08:41)
[2021-05-19] MEDS: Azithromycin 500 MG in Sodium Chloride 0.9% 250 ML IV SCH (08:42)
[2021-05-19] MEDS: REMDESIVIR 100 MG in Sodium Chloride 0.9% 100 ML IV SCH (12:03)
--- NOTE | 2021-05-19 15:03 | PCM.PN ---
- General Info Date of Service: 05/19/21 Subjective Update: The patient is a 70-year-old female, on day 4 of service, who has a significant past medical history of chronic obstructive pulmonary disease without any home oxygen, GERD, hypertension, hyperlipidemia, peripheral arterial disease, anxiety, depression, bipolar disorder, past addiction to narcotics, lung cancer status post partial resection, breast cancer, and chronic angina, who was admitted to the medical floor due to COVID-19 pneumonia, bacterial pneumonia, and urinary tract infection. Upon interview with the patient today, she admits that her respiratory symptoms are much better and that her shortness of breath has significantly decreased. She is still complaining of cough productive of yellow sputum. She admits that her urinary tract infection symptoms are no longer there. She denies any abdominal pain or dysuria. She is eating and drinking without any issues and has a healthy appetite. She has no issues with defecation. She is currently saturating 93% on 2 L. She has no other health concerns at this time. - Review of Systems General: Reports: Fatigue. Denies: Fever, Weakness HEENT: Denies: Headaches, Sore Throat Pulmonary: Reports: Shortness of Breath, Cough, Sputum Cardiovascular: Denies: Chest Pain, Palpitations Gastrointestinal: Denies: Abdominal Pain Genitourinary: Denies: Dysuria - Patient Data Vitals - Most Recent: Last Vital Signs Temp 96.9 F 05/19/21 10:55 Pulse 93 05/19/21 10:55 Resp 20 05/19/21 10:55 BP 158/99 H 05/19/21 10:55 Pulse Ox 90 L 05/19/21 10:55 Weight - Most Recent: 172 lb I&O - Last 24 Hours: Intake & Output 05/19/21 05/19/21 05/19/21 06:59 14:59 22:59 Intake Total 1580 Output Total 2000 Balance -420 Lab Results Last 24 Hours: Laboratory Results - last 24 hr 05/19/21 05/19/21 Range/Units 05:15 05:15 WBC 15.01 H (4.0-11.0) K/uL RBC 4.69 (4.30-5.90) M/uL Hgb 12.5 (12.0-16.0) g/dL Hct 37.3 (36.0-46.0) % MCV 79.5 L (80.0-98.0) fL MCH 26.7 L (27.0-32.0) pg MCHC 33.5 (31.0-37.0) g/dL RDW Std Deviation 46.0 (28.0-62.0) fl RDW Coeff of Oscar 16 H (11.0-15.0) % Plt Count 238 (150-400) K/uL MPV 10.30 (7.40-12.00) fL Neut % (Auto) 88.4 H (48.0-80.0) % Lymph % (Auto) 4.8 L (16.0-40.0) % [place] % (Auto) 6.7 (0.0-15.0) % Eos % (Auto) 0.0 (0.0-7.0) % Baso % (Auto) 0.1 (0.0-1.5) % Neut # (Auto) 13.3 H (1.4-5.7) K/uL Lymph # (Auto) 0.7 (0.6-2.4) K/uL [place] # (Auto) 1.0 H (0.0-0.8) K/uL Eos # (Auto) 0.0 (0.0-0.7) K/uL Baso # (Auto) 0.0 (0.0-0.1) K/uL Nucleated RBC % 0.0 /100WBC Nucleated RBCs # 0 K/uL Sodium 138 (136-145) mmol/L Potassium 3.6 (3.5-5.1) mmol/L Chloride 102 (98-107) mmol/L Carbon Dioxide 31.5 (21.0-32.0) mmol/L BUN 19 H (7.0-18.0) mg/dL Creatinine 0.9 (0.6-1.0) mg/dL Est Cr Clr Drug Dosing 59.05 mL/min Estimated GFR (MDRD) > 60.0 ml/min Glucose 160 H (74-106) mg/dL Calcium 8.3 L (8.5-10.1) mg/dL Total Bilirubin 0.6 (0.2-1.0) mg/dL AST 62 H (15-37) IU/L ALT 40 (14-63) IU/L Alkaline Phosphatase 102 (46-116) U/L Total Protein 6.0 L (6.4-8.2) g/dL Albumin 2.2 L (3.4-5.0) g/dL Globulin 3.8 (2.6-4.0) g/dL Albumin/Globulin Ratio 0.6 L (0.9-1.6) Yovany Results Last 24 Hours: Microbiology 05/16/21 10:57 Aerobic Blood Culture - Preliminary Blood - Venous - Lab Draw NO GROWTH AFTER 3 DAYS Anaerobic Blood Culture - Preliminary NO GROWTH AFTER 3 DAYS 05/16/21 10:35 Aerobic Blood Culture - Preliminary Blood - Venous NO GROWTH AFTER 3 DAYS Anaerobic Blood Culture - Preliminary NO GROWTH AFTER 3 DAYS Med Orders - Current: Current Medications Acetaminophen (Acetaminophen 325 Mg Tab) 325 mg PO Q4H PRN PRN Reason: Pain and fever Last Admin: 05/18/21 20:36 Dose: 325 mg Documented by: Albuterol/Ipratropium (Albuterol/Ipratropium 4 Gm Inhalation [place]) 1 gm INH Q4H PRN PRN Reason: Dyspnea Last Admin: 05/18/21 02:30 Dose: 1 puff Documented by: Benzocaine/Menthol (Benzocaine/Cetylpyridinium/Menthol Lozenge) 1 lozenge MUCMEM Q2HR PRN PRN Reason: Sore Throat Last Admin: 05/17/21 13:39 Dose: 1 lozenge Documented by: Bupropion HCl (Bupropion 150 Mg Tab.Sr) 300 mg PO DAILY [facility] Last Admin: 05/19/21 08:37 Dose: 300 mg Documented by: Clopidogrel Bisulfate (Clopidogrel 75 Mg Tab) 75 mg PO DAILY [facility] Last Admin: 05/19/21 08:40 Dose: 75 mg Documented by: Dexamethasone (Dexamethasone 4 Mg Tab) 6 mg PO DAILY [facility] Last Admin: 05/19/21 08:35 Dose: 6 mg Documented by: Enoxaparin Sodium (Enoxaparin 40 Mg/0.4 Ml Syringe) 40 mg SUBCUT Q24H [facility] Last Admin: 05/18/21 15:22 Dose: 40 mg Documented by: Fluoxetine HCl (Fluoxetine 20 Mg Cap) 20 mg PO DAILY [facility] Last Admin: 05/19/21 08:39 Dose: 20 mg Documented by: Guaifenesin (Guaifenesin 100 Mg/5 Ml Soln 5 Ml Ud Cup) 100 mg PO Q6H PRN PRN Reason: Cough Last Admin: 05/18/21 05:11 Dose: 100 mg Documented by: Remdesivir 100 mg/ Sodium (Chloride) 100 mls @ 100 mls/hr IV Q24H [facility] Stop: 05/20/21 12:59 Last Admin: 05/19/21 12:03 Dose: 100 mls/hr Documented by: Azithromycin 500 mg/ Sodium (Chloride) 250 mls @ 250 mls/hr IV DAILY [facility] Last Admin: 05/19/21 08:42 Dose: 250 mls/hr Documented by: Ceftriaxone Sodium/Dextrose (Rocephin In Dextrose,Iso-Osm 1 Gm/50 Ml) 50 mls @ 100 mls/hr IV Q24H [facility] Last Admin: 05/18/21 17:44 Dose: 100 mls/hr Documented by: Isosorbide Mononitrate (Isosorbide Mononitrate 60 Mg Tab.Er) 120 mg PO DAILY [facility] Last Admin: 05/19/21 08:36 Dose: 120 mg Documented by: Lisinopril (Lisinopril 10 Mg Tab) 10 mg PO DAILY [facility] Last Admin: 05/19/21 08:39 Dose: 10 mg Documented by: Pantoprazole Sodium (Pantoprazole 40 Mg/10 Ml Syringe) 40 mg IVPUSH DAILY [facility] Last Admin: 05/19/21 08:41 Dose: 40 mg Documented by: Discontinued Medications Acetaminophen (Acetaminophen 500 Mg Tab) 1,000 mg PO ONETIME ONE Stop: 05/16/21 10:01 Last Admin: 05/16/21 10:11 Dose: 1,000 mg Documented by: Albuterol/Ipratropium (Albuterol/Ipratropium 3.0-0.5 Mg/3 Ml Neb Soln) 3 ml NEB ONETIME ONE Stop: 05/16/21 09:59 Last Admin: 05/16/21 10:11 Dose: 3 ml Documented by: Aspirin (Aspirin 81 Mg Tab.Chew) 324 mg PO ONETIME ONE Stop: 05/16/21 11:02 Last Admin: 05/16/21 11:33 Dose: 324 mg Documented by: Cefepime HCl 2 gm/ Premix 50 mls @ 100 mls/hr IV ONETIME ONE Stop: 05/16/21 11:20 Last Admin: 05/16/21 11:33 Dose: 100 mls/hr Documented by: Potassium Chloride 40 meq/ (Premix) 100 mls @ 25 mls/hr IV ONETIME ONE Stop: 05/16/21 15:00 Last Admin: 05/16/21 12:38 Dose: 25 mls/hr Documented by: Sodium Chloride (Normal Saline) 1,000 mls @ 999 mls/hr IV .Bolus ONE Stop: 05/16/21 12:03 Last Admin: 05/16/21 11:33 Dose: 999 mls/hr Documented by: Remdesivir 200 mg/ Sodium (Chloride) 250 mls @ 250 mls/hr IV ONETIME ONE Stop: 05/16/21 11:39 Last Admin: 05/16/21 12:40 Dose: Not Given Documented by: Sodium Chloride (Normal Saline) 1,000 mls @ 100 mls/hr IV .BOLUS [place] Remdesivir 200 mg/ Sodium (Chloride) 250 mls @ 250 mls/hr IV ONETIME ONE Stop: 05/16/21 13:14 Last Admin: 05/16/21 12:39 Dose: 250 mls/hr Documented by: Sodium Chloride (Normal Saline) 1,000 mls @ 100 mls/hr IV NOW STA Stop: 05/17/21 01:18 Last Admin: 05/16/21 15:21 Dose: 100 mls/hr Documented by: Magnesium Sulfate 2 gm/ Premix 50 mls @ 12.5 mls/hr IV ONETIME ONE Stop: 05/16/21 19:19 Last Admin: 05/16/21 18:43 Dose: 12.5 mls/hr Documented by: Ceftriaxone Sodium 1 mg/ (Sodium Chloride) 50 mls @ 100 mls/hr IV Q24H [facility] Last Admin: 05/16/21 18:14 Dose: Not Given Documented by: Iopamidol (Iopamidol 755 Mg/Ml 500 Ml Multipack Bottle) 100 ml IVPUSH ONETIME ONE Stop: 05/16/21 12:54 Last Admin: 05/16/21 12:53 Dose: 100 ml Documented by: Methylprednisolone Sodium Succinate (Methylprednisolone Sodium Succinate 125 Mg/2 Ml Sdv) 125 mg IVPUSH ONETIME ONE Stop: 05/16/21 09:59 Last Admin: 05/16/21 10:11 Dose: 125 mg Documented by: Non-Formulary Medication (Isosorbide Mononitrate [Isosorbide Mononitrate Er]) 120 mg PO DAILY [facility] Last Admin: 05/17/21 10:54 Dose: Not Given Documented by: Potassium Chloride (Potassium Chloride 20 Meq Tab.Er) 40 meq PO ONETIME ONE Stop: 05/16/21 15:21 Last Admin: 05/16/21 17:33 Dose: 40 meq Documented by: Potassium Chloride (Potassium Chloride 20 Meq Tab.Er) 40 meq PO ONETIME ONE Stop: 05/17/21 10:04 Last Admin: 05/17/21 10:54 Dose: 40 meq Documented by: - Exam General: Alert, Oriented, Cooperative HEENT: Mucous Membr. Moist/[place] Neck: Trachea Midline Lungs: Rhonchi Cardiovascular: Regular Rate, Regular Rhythm GI/Abdominal Exam: Normal Bowel Sounds, Soft, Non-Tender Extremities: No Pedal Edema - Patient Data Lab Results Last 24 hrs: Laboratory Results - last 24 hr 05/19/21 05/19/21 Range/Units 05:15 05:15 WBC 15.01 H (4.0-11.0) K/uL RBC 4.69 (4.30-5.90) M/uL Hgb 12.5 (12.0-16.0) g/dL Hct 37.3 (36.0-46.0) % MCV 79.5 L (80.0-98.0) fL MCH 26.7 L (27.0-32.0) pg MCHC 33.5 (31.0-37.0) g/dL RDW Std Deviation 46.0 (28.0-62.0) fl RDW Coeff of Oscar 16 H (11.0-15.0) % Plt Count 238 (150-400) K/uL MPV 10.30 (7.40-12.00) fL Neut % (Auto) 88.4 H (48.0-80.0) % Lymph % (Auto) 4.8 L (16.0-40.0) % [place] % (Auto) 6.7 (0.0-15.0) % Eos % (Auto) 0.0 (0.0-7.0) % Baso % (Auto) 0.1 (0.0-1.5) % Neut # (Auto) 13.3 H (1.4-5.7) K/uL Lymph # (Auto) 0.7 (0.6-2.4) K/uL [place] # (Auto) 1.0 H (0.0-0.8) K/uL Eos # (Auto) 0.0 (0.0-0.7) K/uL Baso # (Auto) 0.0 (0.0-0.1) K/uL Nucleated RBC % 0.0 /100WBC Nucleated RBCs # 0 K/uL Sodium 138 (136-145) mmol/L Potassium 3.6 (3.5-5.1) mmol/L Chloride 102 (98-107) mmol/L Carbon Dioxide 31.5 (21.0-32.0) mmol/L BUN 19 H (7.0-18.0) mg/dL Creatinine 0.9 (0.6-1.0) mg/dL Est Cr Clr Drug Dosing 59.05 mL/min Estimated GFR (MDRD) > 60.0 ml/min Glucose 160 H (74-106) mg/dL Calcium 8.3 L (8.5-10.1) mg/dL Total Bilirubin 0.6 (0.2-1.0) mg/dL AST 62 H (15-37) IU/L ALT 40 (14-63) IU/L Alkaline Phosphatase 102 (46-116) U/L Total Protein 6.0 L (6.4-8.2) g/dL Albumin 2.2 L (3.4-5.0) g/dL Globulin 3.8 (2.6-4.0) g/dL Albumin/Globulin Ratio 0.6 L (0.9-1.6) Result Diagrams: 05/19/21 05:15 05/19/21 05:15 Yovany Results Last 24 hrs: Microbiology 05/16/21 10:57 Aerobic Blood Culture - Preliminary Blood - Venous - Lab Draw NO GROWTH AFTER 3 DAYS Anaerobic Blood Culture - Preliminary NO GROWTH AFTER 3 DAYS 05/16/21 10:35 Aerobic Blood Culture - Preliminary Blood - Venous NO GROWTH AFTER 3 DAYS Anaerobic Blood Culture - Preliminary NO GROWTH AFTER 3 DAYS Sepsis Event Note - Evaluation Sepsis Screening Result: No Definite Risk - Focused Exam Vital Signs: Vital Signs Temp Pulse Resp BP BP Pulse Ox 05/19/21 10:55 96.9 F 93 20 158/99 H 90 L 05/19/21 08:39 154/110 H 05/19/21 08:00 97.3 F 97 20 148/94 H 92 L - Problem List & Annotations (1) Bacterial pneumonia SNOMED Code(s): 11095623 Code(s): J15.9 - UNSPECIFIED BACTERIAL PNEUMONIA Status: Acute Current Visit: Yes (2) COVID-19 SNOMED Code(s): 245797710 Code(s): U07.1 - COVID-19 Status: Acute Current Visit: Yes (3) UTI (urinary tract infection) SNOMED Code(s): 41152883 Code(s): N39.0 - URINARY TRACT INFECTION, SITE NOT SPECIFIED Status: Acute Current Visit: Yes (4) HTN (hypertension) SNOMED Code(s): 02425592 Code(s): I10 - ESSENTIAL (PRIMARY) HYPERTENSION Status: Acute Current Visit: Yes (5) Depression SNOMED Code(s): 07224593 Code(s): F32.A - DEPRESSION, UNSPECIFIED Status: Acute Current Visit: Yes (6) Chronic stable angina SNOMED Code(s): 456920029 Code(s): I20.8 - OTHER FORMS OF ANGINA PECTORIS Status: Acute Current Visit: Yes (7) Anxiety SNOMED Code(s): 84848250 Code(s): F41.9 - ANXIETY DISORDER, UNSPECIFIED Status: Acute Current Visit: Yes - Problem List Review Problem List Initiated/Reviewed/Updated: Yes - My Orders Last 24 Hours: My Active Orders 05/20/21 05:11 CBC WITH AUTO DIFF [HEME] AM CMP [COMPREHENSIVE METABOLIC PN,CMP] [CHEM] AM - Assessment Assessment:: 1. COVID-19 pneumonia -The patient is saturating 93% while being on 2 L of oxygen, continue to wean -Continue with remdesivir 100 mg per IV route once a day -Continue with dexamethasone per oral route 6 mg daily -For shortness of breath, continue Combivent -For cough, continue Robitussin -Incentive spirometry 2. Bacterial pneumonia/UTI -Continue with Rocephin 1 g IV every 24 hours -Continue with azithromycin 500 mg IV every 24 hours -We will continue to monitor with daily CBC 3. Past medical history of anxiety, depression, hypertension, and chronic angina -Continue with home dosages of lisinopril, bupropion, fluoxetine, Plavix, and isosorbide dinitrate
[2021-05-19] MEDS: Enoxaparin 40 MG/0.4 ML Syringe SUBCUT SCH (15:27)
[2021-05-19] MEDS: Acetaminophen 325 MG Tab PO PRN (17:59)
[2021-05-20 07:40] LABS: BLOOD UREA NITROGEN,BUN 13 mg/dL (7.0-18.0); CARBON DIOXIDE,CO2 33.6 mmol/L (21.0-32.0); CHLORIDE,CL 101 mmol/L (98-107); GLUCOSE RANDOM 148 mg/dL (74-106); POTASSIUM,K 3.3 mmol/L (3.5-5.1); SODIUM,NA 139 mmol/L (136-145)
[2021-05-20] MEDS: buPROPion 150 MG Tab.SR PO SCH (08:36)
[2021-05-20] MEDS: Dexamethasone 4 MG Tab PO SCH (08:36)
[2021-05-20] MEDS: Lisinopril 10 MG Tab PO SCH (08:37)
[2021-05-20] MEDS: Clopidogrel 75 MG Tab PO SCH (08:38)
[2021-05-20] MEDS: FLUoxetine 20 MG Cap PO SCH (08:38)
[2021-05-20] MEDS ORDERED: Potassium Chloride 20 MEQ Tab.ER PO ONE (08:41)
[2021-05-20] MEDS: Isosorbide Mononitrate 60 MG Tab.ER PO SCH (08:47)
[2021-05-20] MEDS: Pantoprazole 40 MG/10 ML Syringe IVPUSH SCH (08:48)
[2021-05-20] MEDS: Azithromycin 500 MG in Sodium Chloride 0.9% 250 ML IV SCH (08:53)
[2021-05-20 12:01] VITALS: BP 161/105; PULSE 106
[2021-05-20] MEDS: REMDESIVIR 100 MG in Sodium Chloride 0.9% 100 ML IV SCH (12:02)
--- NOTE | 2021-05-20 14:00 | PCM.DCSUM1 ---
Discharge Summary - Hospital Course Free Text/Narrative:: The patient is a 70-year-old female, on day 5 of service, who has a significant past medical history of chronic obstructive pulmonary disease without any home oxygen, GERD, hypertension, hyperlipidemia, peripheral arterial disease, anxiety, depression, bipolar disorder, past addiction to narcotics, lung cancer status post partial resection, breast cancer, and chronic angina, who was admitted to the medical floor due to COVID-19 pneumonia, bacterial pneumonia, and urinary tract infection. During the patient's hospital course, for her COVID-19 pneumonia she was treated with different protocol medications including remdesivir per IV route, dexamethasone for antiinflammation, Combivent for shortness of breath, and Robitussin for cough. She was also given oxygen and is currently saturating 93% on 2 L. She will be discharged home with 2 L of oxygen via [facility] to be used continuously. She will also be discharged with oral dexamethasone and will be allowed to take her Combivent with her. In regards to her bacterial pneumonia, while in hospital the patient was treated with Rocephin and azithromycin. Upon discharge she will be given a prescription for Levaquin 750 mg to be taken once a day in order to fully treat her pneumonia. I spoke with the patient's daughter today, Cleo who will take the patient in and provide care for her in regards to her activities, grooming, medications, and follow-up appointments. Cleo was also counseled on bringing her mother back to the hospital if she has increasingly worse shortness of breath, respiratory difficulty, chest pain, and/or palpitations. She was also educated on making sure her mother is compliant with her medication and taking them at scheduled times. The patient is now stable and can be discharged home safely. - Discharge Data Discharge Date: 05/20/21 Discharge Disposition: Home, Self-Care 01 Condition: Stable - Referral to Home Health Primary Care Physician: Dion Connell MD - Discharge Diagnosis/Problem(s) (1) Bacterial pneumonia SNOMED Code(s): 57648714 ICD Code: J15.9 - UNSPECIFIED BACTERIAL PNEUMONIA Status: Acute Current Visit: Yes (2) COVID-19 SNOMED Code(s): 045146038 ICD Code: U07.1 - COVID-19 Status: Acute Current Visit: Yes (3) UTI (urinary tract infection) SNOMED Code(s): 31255814 ICD Code: N39.0 - URINARY TRACT INFECTION, SITE NOT SPECIFIED Status: Acute Current Visit: Yes (4) HTN (hypertension) SNOMED Code(s): 82524258 ICD Code: I10 - ESSENTIAL (PRIMARY) HYPERTENSION Status: Acute Current Visit: Yes (5) Depression SNOMED Code(s): 15044042 ICD Code: F32.A - DEPRESSION, UNSPECIFIED Status: Acute Current Visit: Yes (6) Chronic stable angina SNOMED Code(s): 795177661 ICD Code: I20.8 - OTHER FORMS OF ANGINA PECTORIS Status: Acute Current Visit: Yes (7) Anxiety SNOMED Code(s): 05143832 ICD Code: F41.9 - ANXIETY DISORDER, UNSPECIFIED Status: Acute Current Visit: Yes - Patient Instructions Diet: Heart Healthy Diet Activity: As Tolerated Showering/Bathing: May Shower Other/Special Instructions: -Return to the hospital if you have increasing shortness of breath, respiratory difficulty, chest pain, palpitations. -Take your medication at scheduled times. -Follow-up with your primary care provider. -Use your home oxygen continuously - Discharge Plan Prescriptions/Med Rec: dexAMETHasone [Dexamethasone] 6 mg PO DAILY 5 Days #8 tablet levoFLOXacin [Levaquin] 750 mg PO DAILY #3 tab guaiFENesin [Robitussin] 100 mg PO Q6H PRN #1 bottle PRN Reason: Cough Home Medications: Home Meds Lisinopril 10 mg PO DAILY #30 tablet 02/17/14 [Rx] atenoloL [Atenolol] 50 mg PO DAILY #30 tablet 02/17/14 [Rx] FLUoxetine [PROzac] 20 mg PO DAILY 08/06/16 [History] Nitroglycerin [Nitrostat] 0.4 mg SL Q5M PRN 08/06/16 [History] atorvaSTATin [Lipitor] 10 mg PO BEDTIME 08/06/16 [History] buPROPion [Wellbutrin SR] 300 mg PO DAILY 08/06/16 [History] Albuterol [Ventolin HFA] 1 - 2 puff INH ASDIRECTED PRN 11/04/17 [History] Clopidogrel Bisulfate [Plavix] 75 mg PO DAILY 11/04/17 [History] Sucralfate 1 gm PO QID 02/02/18 [History] Isosorbide Mononitrate [Isosorbide Mononitrate ER] 120 mg PO DAILY 05/21/18 [History] Aspirin 81 mg PO DAILY 05/16/21 [History] Omeprazole Magnesium [Prilosec Otc] 40 mg PO DAILY 05/16/21 [History] Pregabalin [Lyrica] 150 mg PO DAILY 05/16/21 [History] Rosuvastatin [Crestor] 05/19/21 [History] buPROPion HCL [Bupropion Xl] 05/19/21 [History] Albuterol/Ipratropium [Combivent Respimat] 1 gm INH Q4H PRN inhaler 05/20/21 [Rx] dexAMETHasone [Dexamethasone] 6 mg PO DAILY 5 Days #8 tablet 05/20/21 [Rx] guaiFENesin [Robitussin] 100 mg PO Q6H PRN #1 bottle 05/20/21 [Rx] levoFLOXacin [Levaquin] 750 mg PO DAILY #3 tab 05/20/21 [Rx] Oxygen Therapy Mode: Nasal Cannula Oxygen Flow Rate (L/min): 2 Patient Handouts: COVID-19 Frequently Asked Questions, COVID-19 Vaccine Information, Hypokalemia, Urinary Tract Infection, Adult, [id number], Guaifenesin oral solution and syrup, COVID-19: How to Protect Yourself and Others - CDC, Hypertension, Adult, [id number], Preventing Hypertension, Levofloxacin tablets, COVID-19: Quarantine vs. Isolation - [facility] (06/06/2020), Managing Anxiety, Adult, Managing Your Hypertension, Dexamethasone tablets Referrals: Dion Connell MD [Primary Care Provider] - 06/09/21 1:30 pm - Discharge Summary/Plan Comment DC Time >30 min.: Yes Total # of Minutes for Discharge Time: 35 minutes - Review of Systems General: Denies: Fever, Weakness, Fatigue HEENT: Denies: Headaches, Sore Throat Pulmonary: Reports: Cough. Denies: Shortness of Breath Cardiovascular: Denies: Chest Pain, Palpitations Gastrointestinal: Denies: Abdominal Pain Genitourinary: Denies: Dysuria, Frequency - Patient Data Vitals - Most Recent: Last Vital Signs Temp 97.2 F 05/20/21 11:56 Pulse 106 H 05/20/21 11:56 Resp 20 05/20/21 11:56 BP 161/105 H 05/20/21 11:56 Pulse Ox 91 L 05/20/21 11:56 Weight - Most Recent: 172 lb I&O - Last 24 hours: Intake & Output 05/19/21 05/20/21 05/20/21 22:59 06:59 14:59 Intake Total 1800 600 250 Output Total 1200 1600 Balance 600 -1000 250 Lab Results - Last 24 hrs: Laboratory Results - last 24 hr 05/20/21 05/20/21 Range/Units 06:48 06:48 WBC 12.41 H (4.0-11.0) K/uL RBC 4.60 (4.30-5.90) M/uL Hgb 12.4 (12.0-16.0) g/dL Hct 36.9 (36.0-46.0) % MCV 80.2 (80.0-98.0) fL MCH 27.0 (27.0-32.0) pg MCHC 33.6 (31.0-37.0) g/dL RDW Std Deviation 46.0 (28.0-62.0) fl RDW Coeff of Oscar 16 H (11.0-15.0) % Plt Count 251 (150-400) K/uL MPV 9.80 (7.40-12.00) fL Add Manual Diff YES Neutrophils % (Manual) 79 (48.0-80.0) % Band Neutrophils % 4 % Lymphocytes % (Manual) 8 L (16.0-40.0) % Monocytes % (Manual) 9 (0.0-15.0) % Nucleated RBC % 0.0 /100WBC Absolute Seg Neuts 9.8 H (1.4-5.7) Band Neutrophils # 0.5 Lymphocytes # (Manual) 1.0 (0.6-2.4) Monocytes # (Manual) 1.1 H (0.0-0.8) Nucleated RBCs # 0 K/uL Reactive Lymphocytes FEW Sodium 139 (136-145) mmol/L Potassium 3.3 L (3.5-5.1) mmol/L Chloride 101 (98-107) mmol/L Carbon Dioxide 33.6 H (21.0-32.0) mmol/L BUN 13 (7.0-18.0) mg/dL Creatinine 0.8 (0.6-1.0) mg/dL Est Cr Clr Drug Dosing 66.43 mL/min Estimated GFR (MDRD) > 60.0 ml/min Glucose 148 H (74-106) mg/dL Calcium 8.0 L (8.5-10.1) mg/dL Total Bilirubin 0.7 (0.2-1.0) mg/dL AST 54 H (15-37) IU/L ALT 39 (14-63) IU/L Alkaline Phosphatase 103 (46-116) U/L Total Protein 5.8 L (6.4-8.2) g/dL Albumin 2.2 L (3.4-5.0) g/dL Globulin 3.6 (2.6-4.0) g/dL Albumin/Globulin Ratio 0.6 L (0.9-1.6) LEÓN Results - Last 24 hrs: Microbiology 05/16/21 10:57 Aerobic Blood Culture - Preliminary Blood - Venous - Lab Draw NO GROWTH AFTER 4 DAYS Anaerobic Blood Culture - Preliminary NO GROWTH AFTER 4 DAYS 05/16/21 10:35 Aerobic Blood Culture - Preliminary Blood - Venous NO GROWTH AFTER 4 DAYS Anaerobic Blood Culture - Preliminary NO GROWTH AFTER 4 DAYS Med Orders - Current: Current Medications Acetaminophen (Acetaminophen 325 Mg Tab) 325 mg PO Q4H PRN PRN Reason: Pain and fever Last Admin: 05/19/21 17:59 Dose: 325 mg Documented by: Albuterol/Ipratropium (Albuterol/Ipratropium 4 Gm Inhalation [place]) 1 gm INH Q4H PRN PRN Reason: Dyspnea Last Admin: 05/18/21 02:30 Dose: 1 puff Documented by: Benzocaine/Menthol (Benzocaine/Cetylpyridinium/Menthol Lozenge) 1 lozenge MUCMEM Q2HR PRN PRN Reason: Sore Throat Last Admin: 05/17/21 13:39 Dose: 1 lozenge Documented by: Bupropion HCl (Bupropion 150 Mg Tab.Sr) 300 mg PO DAILY [facility] Last Admin: 05/20/21 08:36 Dose: 300 mg Documented by: Clopidogrel Bisulfate (Clopidogrel 75 Mg Tab) 75 mg PO DAILY [facility] Last Admin: 05/20/21 08:38 Dose: 75 mg Documented by: Dexamethasone (Dexamethasone 4 Mg Tab) 6 mg PO DAILY [facility] Last Admin: 05/20/21 08:36 Dose: 6 mg Documented by: Enoxaparin Sodium (Enoxaparin 40 Mg/0.4 Ml Syringe) 40 mg SUBCUT Q24H [facility] Last Admin: 05/19/21 15:27 Dose: 40 mg Documented by: Fluoxetine HCl (Fluoxetine 20 Mg Cap) 20 mg PO DAILY [facility] Last Admin: 05/20/21 08:38 Dose: 20 mg Documented by: Guaifenesin (Guaifenesin 100 Mg/5 Ml Soln 5 Ml Ud Cup) 100 mg PO Q6H PRN PRN Reason: Cough Last Admin: 05/18/21 05:11 Dose: 100 mg Documented by: Azithromycin 500 mg/ Sodium (Chloride) 250 mls @ 250 mls/hr IV DAILY [facility] Last Admin: 05/20/21 08:53 Dose: 250 mls/hr Documented by: Ceftriaxone Sodium/Dextrose (Rocephin In Dextrose,Iso-Osm 1 Gm/50 Ml) 50 mls @ 100 mls/hr IV Q24H [facility] Last Admin: 05/19/21 17:59 Dose: 100 mls/hr Documented by: Isosorbide Mononitrate (Isosorbide Mononitrate 60 Mg Tab.Er) 120 mg PO DAILY [facility] Last Admin: 05/20/21 08:47 Dose: 120 mg Documented by: Lisinopril (Lisinopril 10 Mg Tab) 10 mg PO DAILY [facility] Last Admin: 05/20/21 08:37 Dose: 10 mg Documented by: Pantoprazole Sodium (Pantoprazole 40 Mg/10 Ml Syringe) 40 mg IVPUSH DAILY [facility] Last Admin: 05/20/21 08:48 Dose: 40 mg Documented by: Discontinued Medications Acetaminophen (Acetaminophen 500 Mg Tab) 1,000 mg PO ONETIME ONE Stop: 05/16/21 10:01 Last Admin: 05/16/21 10:11 Dose: 1,000 mg Documented by: Albuterol/Ipratropium (Albuterol/Ipratropium 3.0-0.5 Mg/3 Ml Neb Soln) 3 ml NEB ONETIME ONE Stop: 05/16/21 09:59 Last Admin: 05/16/21 10:11 Dose: 3 ml Documented by: Aspirin (Aspirin 81 Mg Tab.Chew) 324 mg PO ONETIME ONE Stop: 05/16/21 11:02 Last Admin: 05/16/21 11:33 Dose: 324 mg Documented by: Cefepime HCl 2 gm/ Premix 50 mls @ 100 mls/hr IV ONETIME ONE Stop: 05/16/21 11:20 Last Admin: 05/16/21 11:33 Dose: 100 mls/hr Documented by: Potassium Chloride 40 meq/ (Premix) 100 mls @ 25 mls/hr IV ONETIME ONE Stop: 05/16/21 15:00 Last Admin: 05/16/21 12:38 Dose: 25 mls/hr Documented by: Sodium Chloride (Normal Saline) 1,000 mls @ 999 mls/hr IV .Bolus ONE Stop: 05/16/21 12:03 Last Admin: 05/16/21 11:33 Dose: 999 mls/hr Documented by: Remdesivir 200 mg/ Sodium (Chloride) 250 mls @ 250 mls/hr IV ONETIME ONE Stop: 05/16/21 11:39 Last Admin: 05/16/21 12:40 Dose: Not Given Documented by: Sodium Chloride (Normal Saline) 1,000 mls @ 100 mls/hr IV .BOLUS [place] Remdesivir 200 mg/ Sodium (Chloride) 250 mls @ 250 mls/hr IV ONETIME ONE Stop: 05/16/21 13:14 Last Admin: 05/16/21 12:39 Dose: 250 mls/hr Documented by: Sodium Chloride (Normal Saline) 1,000 mls @ 100 mls/hr IV NOW STA Stop: 05/17/21 01:18 Last Admin: 05/16/21 15:21 Dose: 100 mls/hr Documented by: Magnesium Sulfate 2 gm/ Premix 50 mls @ 12.5 mls/hr IV ONETIME ONE Stop: 05/16/21 19:19 Last Admin: 05/16/21 18:43 Dose: 12.5 mls/hr Documented by: Remdesivir 100 mg/ Sodium (Chloride) 100 mls @ 100 mls/hr IV Q24H [place] Stop: 05/20/21 12:59 Last Admin: 05/20/21 12:02 Dose: 100 mls/hr Documented by: Ceftriaxone Sodium 1 mg/ (Sodium Chloride) 50 mls @ 100 mls/hr IV Q24H [facility] Last Admin: 05/16/21 18:14 Dose: Not Given Documented by: Iopamidol (Iopamidol 755 Mg/Ml 500 Ml Multipack Bottle) 100 ml IVPUSH ONETIME ONE Stop: 05/16/21 12:54 Last Admin: 05/16/21 12:53 Dose: 100 ml Documented by: Methylprednisolone Sodium Succinate (Methylprednisolone Sodium Succinate 125 Mg/2 Ml Sdv) 125 mg IVPUSH ONETIME ONE Stop: 05/16/21 09:59 Last Admin: 05/16/21 10:11 Dose: 125 mg Documented by: Non-Formulary Medication (Isosorbide Mononitrate [Isosorbide Mononitrate Er]) 120 mg PO DAILY [facility] Last Admin: 05/17/21 10:54 Dose: Not Given Documented by: Potassium Chloride (Potassium Chloride 20 Meq Tab.Er) 40 meq PO ONETIME ONE Stop: 05/16/21 15:21 Last Admin: 05/16/21 17:33 Dose: 40 meq Documented by: Potassium Chloride (Potassium Chloride 20 Meq Tab.Er) 40 meq PO ONETIME ONE Stop: 05/17/21 10:04 Last Admin: 05/17/21 10:54 Dose: 40 meq Documented by: Potassium Chloride (Potassium Chloride 20 Meq Tab.Er) 40 meq PO ONETIME ONE Stop: 05/20/21 08:42 Last Admin: 05/20/21 09:17 Dose: 40 meq Documented by: - Exam General: Reports: Alert, Oriented, Cooperative HEENT: Reports: Mucous Membr. Moist/[employer] Neck: Reports: Trachea Midline Lungs: Reports: Clear to Auscultation, Normal Respiratory Effort Cardiovascular: Reports: Regular Rate, Regular Rhythm GI/Abdominal Exam: Normal Bowel Sounds, Soft, Non-Tender
== END 2021-05-20 14:55 | disposition home or self-care (01) | DRG 177 ==
LOC: MW.ED 09:36 → MW.MS 13:16
PROVIDERS: ADMIT Hospitalist; ATTEND Hospitalist
PROC: XW033E5 Introduction of Remdesivir Anti-infective into Peripheral Vein, Percutaneous Approach, New Technology Group 5 (ICD-10-PCS; principal; 2021-05-16)
PROC: 3E0333Z Introduction of Anti-inflammatory into Peripheral Vein, Percutaneous Approach (ICD-10-PCS; 2021-05-16)
PROC: 3E0DX3Z Introduction of Anti-inflammatory into Mouth and Pharynx, External Approach (ICD-10-PCS; 2021-05-17)
DX: U07.1 COVID-19 (principal); J12.82 Pneumonia due to coronavirus disease 2019; I25.10 Atherosclerotic heart disease of native coronary artery without angina pectoris; J15.9 Unspecified bacterial pneumonia; N39.0 Urinary tract infection, site not specified; N17.9 Acute kidney failure, unspecified; J44.9 Chronic obstructive pulmonary disease, unspecified; I25.110 Atherosclerotic heart disease of native coronary artery with unstable angina pectoris; F41.9 Anxiety disorder, unspecified; H54.7 Unspecified visual loss; E78.00 Pure hypercholesterolemia, unspecified; M54.9 Dorsalgia, unspecified; G89.29 Other chronic pain; F31.9 Bipolar disorder, unspecified; M81.0 Age-related osteoporosis without current pathological fracture; K21.9 Gastro-esophageal reflux disease without esophagitis; I10 Essential (primary) hypertension; R29.6 Repeated falls; E87.6 Hypokalemia; E83.42 Hypomagnesemia; I73.9 Peripheral vascular disease, unspecified; M19.90 Unspecified osteoarthritis, unspecified site; E78.5 Hyperlipidemia, unspecified; Z85.3 Personal history of malignant neoplasm of breast; Z79.82 Long term (current) use of aspirin; Z79.899 Other long term (current) drug therapy; I25.2 Old myocardial infarction; Z95.5 Presence of coronary angioplasty implant and graft; Z90.49 Acquired absence of other specified parts of digestive tract; Z90.710 Acquired absence of both cervix and uterus; Z87.891 Personal history of nicotine dependence; Z98.51 Tubal ligation status; Z85.118 Personal history of other malignant neoplasm of bronchus and lung; Z88.2 Allergy status to sulfonamides; Z88.8 Allergy status to other drugs, medicaments and biological substances; Z79.02 Long term (current) use of antithrombotics/antiplatelets
CPT/HCPCS: 36415; 70450; 71045; 71275; 80053; 80305; 80307; 81001; 82803; 82947; 83605; 83735; 83880; 84443; 84484; 85025; 86140; 87040 ×2; 93005; 96365; 96367; 96368; 96375; 99285; A9270 ×2; J0692; J2930; J3480; J7030; J7050; Q9967; U0002; C9113; J0456; J0696; J1650; J3475; J7620-GY; J8540

== ENCOUNTER 2023-12-01 11:46 | Emergency (ER) | payer MEDICARE, MEDICAID ==
[2023-12-01 12:16] LABS: BASOPHILS ABSOLUTE AUTO 0.03 K/uL (0.00-0.20); BASOPHILS PERCENT AUTO 0.4 % (0.0-1.0); EOSINOPHILS ABSOLUTE AUTO 0.13 K/uL (0.00-0.45); EOSINOPHILS PERCENT AUTO 1.7 % (0.0-6.0); HEMATOCRIT 41.7 % (37.0-47.0); HEMOGLOBIN 13.8 g/dL (12.0-16.0); IMMATURE GRAN ABSOLUTE AUTO 0.02 K/uL (0.00-0.05); IMMATURE GRAN PERCENT AUTO 0.3 % (0.0-0.4); LYMPHOCYTES ABSOLUTE AUTO 1.67 K/uL (1.00-4.80); LYMPHOCYTES PERCENT AUTO 22.3 % (24.0-44.0); MEAN CORPUSCULAR HEMOGLOBIN 27.7 pg (28.0-32.0); MEAN CORPUSCULAR HGB CONC 33.1 g/dL (32.0-36.0); MEAN CORPUSCULAR VOLUME 83.7 fL (83.0-99.0); MEAN PLATELET VOLUME 9.8 fL (9.4-12.3); MONOCYTES ABSOLUTE AUTO 0.42 K/uL (0.00-0.80); MONOCYTES PERCENT AUTO 5.6 % (0.0-8.0); NEUTROPHILS ABSOLUTE AUTO 5.21 K/uL (1.80-7.70); NEUTROPHILS PERCENT AUTO 69.7 % (41.0-71.0); PLATELET COUNT,PLT 260 K/uL (150-400); RED BLOOD CELL COUNT 4.98 M/uL (4.10-5.30); WHITE BLOOD CELL COUNT,WBC 7.48 K/uL (3.9-11.3)
[2023-12-01] MEDS: Sodium Chloride 0.9% 2.5 ML Syringe FLUSH PRN (12:31)
[2023-12-01] MEDS: Sodium Chloride 0.9% 10 ML Syringe FLUSH PRN (12:31)
[2023-12-01 13:01] LABS: A/G RATIO 0.9 (0.9-1.6); ALBUMIN 3.1 g/dL (3.4-5.0); BILIRUBIN TOTAL 0.4 mg/dL (0.2-1.0); CALCIUM 8.8 mg/dL (8.5-10.1); CARBON DIOXIDE,CO2 26.6 mmol/L (21.0-32.0); CREATININE 1.2 mg/dL (0.6-1.0); EST CRCL DRUG DOSING (CG) 40.86 mL/min; POTASSIUM,K 3.7 mmol/L (3.5-5.1); PROTEIN TOTAL,TP 6.6 g/dL (6.4-8.2); TSH ULTRASENSITIVE 1.56 uIU/mL (0.36-3.74)
[2023-12-01] MEDS: Aspirin 81 MG Tab.Chew PO ONE (13:32)
[2023-12-01] MEDS: Morphine 2 MG/ML SYRINGE IVPUSH ONE (13:33)
[2023-12-01] MEDS: Nitroglycerin 2% Oint 1 GM UD Packet TOP ONE (14:12)
[2023-12-01 14:14] VITALS: BP 203/98; PULSE 51
[2023-12-01] MEDS ORDERED: Nitroglycerin/D5W 25 MG/250 ML BOTTLE IV SCH (14:45)
[2023-12-01] MEDS: Nitroglycerin/D5W 25 MG/250 ML BOTTLE ONE (15:52)
== END 2023-12-01 14:42 ==
LOC: MW.ED 11:46
DX: I21.4 Non-ST elevation (NSTEMI) myocardial infarction (principal); I10 Essential (primary) hypertension; I25.10 Atherosclerotic heart disease of native coronary artery without angina pectoris; J44.9 Chronic obstructive pulmonary disease, unspecified; Z95.1 Presence of aortocoronary bypass graft; Z79.899 Other long term (current) drug therapy; Z88.2 Allergy status to sulfonamides; Z79.82 Long term (current) use of aspirin; Z88.6 Allergy status to analgesic agent; Z75.8 Other problems related to medical facilities and other health care
CPT/HCPCS: 36415; 71045; 80053; 83880; 84443; 84484; 85025; 93005; 99285; A9270; J2305; J3490

== ENCOUNTER 2024-03-10 19:14 | Emergency (ER) | payer MEDICARE, MEDICAID ==
[2024-03-10 20:48] VITALS: PULSE 63
[2024-03-10] MEDS: Clindamycin HCl 150 MG Cap PO STA (22:04)
[2024-03-10 22:44] VITALS: BP 154/91
== END 2024-03-10 22:14 | disposition home or self-care (01) ==
LOC: MW.ED 19:14
DX: L03.113 Cellulitis of right upper limb (principal); I25.10 Atherosclerotic heart disease of native coronary artery without angina pectoris; E78.00 Pure hypercholesterolemia, unspecified; I10 Essential (primary) hypertension; J44.9 Chronic obstructive pulmonary disease, unspecified; K21.9 Gastro-esophageal reflux disease without esophagitis; F17.210 Nicotine dependence, cigarettes, uncomplicated; I25.2 Old myocardial infarction; Z95.5 Presence of coronary angioplasty implant and graft; Z90.49 Acquired absence of other specified parts of digestive tract; Z90.710 Acquired absence of both cervix and uterus; Z79.82 Long term (current) use of aspirin; Z79.899 Other long term (current) drug therapy; Z88.6 Allergy status to analgesic agent; Z88.2 Allergy status to sulfonamides; Z88.5 Allergy status to narcotic agent; Z75.8 Other problems related to medical facilities and other health care
CPT/HCPCS: 73110; 73130; 99283; A9270

== ENCOUNTER 2025-03-03 14:10 | Emergency (ER) | payer MEDICARE, MEDICAID ==
[2025-03-03 14:46] LABS: BASOPHILS ABSOLUTE AUTO 0.04 K/uL (0.00-0.20); BASOPHILS PERCENT AUTO 0.3 % (0.0-1.0); EOSINOPHILS ABSOLUTE AUTO 0.36 K/uL (0.00-0.45); EOSINOPHILS PERCENT AUTO 2.6 % (0.0-6.0); IMMATURE GRAN ABSOLUTE AUTO 0.04 K/uL (0.00-0.05); IMMATURE GRAN PERCENT AUTO 0.3 % (0.0-0.4); LYMPHOCYTES ABSOLUTE AUTO 3.32 K/uL (1.00-4.80); LYMPHOCYTES PERCENT AUTO 24.4 % (24.0-44.0); MEAN PLATELET VOLUME 9.5 fL (9.4-12.3); MONOCYTES ABSOLUTE AUTO 0.88 K/uL (0.00-0.80); MONOCYTES PERCENT AUTO 6.5 % (0.0-8.0); NEUTROPHILS ABSOLUTE AUTO 8.95 K/uL (1.80-7.70); NEUTROPHILS PERCENT AUTO 65.9 % (41.0-71.0); NRBC ABSOLUTE 0.00 K/uL (0.00-0.02); NRBC PERCENT 0.0 /100WBC (0.0-0.2); PLATELET COUNT,PLT 295 K/uL (150-400); RED BLOOD CELL COUNT 5.41 M/uL (4.10-5.30); WHITE BLOOD CELL COUNT,WBC 13.59 K/uL (3.9-11.3)
[2025-03-03 15:14] LABS: A/G RATIO 0.9 (0.9-1.6); ALANINE AMINOTRANSFERASE,ALT 22 IU/L (14-63); ASPARTATE AMNIOTRANSFERASE,AST 24 IU/L (15-37); BILIRUBIN TOTAL 0.4 mg/dL (0.2-1.0); BLOOD UREA NITROGEN,BUN 10 mg/dL (7.0-18.0); CARBON DIOXIDE,CO2 31.5 mmol/L (21.0-32.0); CHLORIDE,CL 101 mmol/L (98-107); CREATININE 1.3 mg/dL (0.6-1.0); GLUCOSE RANDOM 103 mg/dL (74-106); POTASSIUM,K 3.3 mmol/L (3.5-5.1); PRO B-TYPE NATRIUR PEPT,BNPPRO 507 pg/mL (0-450); PROTEIN TOTAL,TP 7.8 g/dL (6.4-8.2); SODIUM,NA 142 mmol/L (136-145)
[2025-03-03 15:16] LABS: ESTIMATED GFR 43 mL/min (>60)
[2025-03-03 15:37] VITALS: BP 207/99; PULSE 86
== END 2025-03-03 15:46 | disposition home or self-care (01) ==
LOC: MW.ED 14:10
DX: J06.9 Acute upper respiratory infection, unspecified (principal); I10 Essential (primary) hypertension; K21.9 Gastro-esophageal reflux disease without esophagitis; E78.00 Pure hypercholesterolemia, unspecified; Z75.3 Unavailability and inaccessibility of health-care facilities; Z88.2 Allergy status to sulfonamides; Z88.8 Allergy status to other drugs, medicaments and biological substances; Z79.899 Other long term (current) drug therapy; Z90.49 Acquired absence of other specified parts of digestive tract; Z90.710 Acquired absence of both cervix and uterus
CPT/HCPCS: 36415; 71045; 80053; 83880; 85025; 87428; 93005; 99284; A9270; 93010; 99283